=== PATIENT | male | born 1940 | race Caucasian/White ===

== ENCOUNTER 2021-01-24 16:25 | Inpatient (IN) | payer MEDICARE, OTHER, SELFPAY ==
[2021-01-24] VITALS (12 sets, daily range): BP systolic 108–177; BP diastolic 41–78; PULSE 62–101; RESP 19–25; TEMP 36.2–36.9; O2SAT 77–98; BMI 23.4
--- NOTE | ~2021-01-24 | XR_ITS ---
EXAMINATION: XR barium swallow modified DATE: 01/27/2021 14:18 INDICATION: Dysphagia TECHNIQUE: Modified barium esophagram was performed by myself to administered fluoroscopy, in conjun ction with speech pathologist who administered barium in varying consistencies as per speech patholog ist documentation. This was recorded on tape. A single fluoroscopic spot image was recorded. The DAP for this procedure was 2.5 Gycm2. Fluoroscopy exposure time was 4.2 minutes. FINDINGS: Oral stage: Adequate function. Pharyngeal phase: Adequate function. Laryngeal penetration: Present with first sip but not thereafter. Aspiration: Present with first sip but not thereafter. Laryngeal sensitivity: Present. IMPRESSION: Laryngeal penetration and aspiration present with the first sip but not thereafter. Pleas e refer to speech pathologist findings and specific feeding recommendations. Reviewed, dictated and finalized at location A. IMPRESSION: Laryngeal penetration and aspiration present with the first sip but not thereafter. Please refer to speech pathologist findings and specific feedi ng recommendations.
--- NOTE | ~2021-01-24 | XR_ITS ---
EXAMINATION: XR chest 1V portable INDICATION: Shortness of breath and productive cough TECHNIQUE: Portable AP chest at 1652 hours COMPARISON: 02/14/2008 FINDINGS: There are patchy opacities throughout the lungs, worst in the mid and lower lung zones. The heart size is normal. No pleural effusion or pneumothorax is identified. IMPRESSION: 1. Patchy bilateral opacities, worst in the mid and lower lung zones, consistent with pneumonia and/o r atelectasis and/or pulmonary edema. Reviewed, dictated and finalized at location A. IMPRESSION: 1. Patchy bilateral opacities, worst in the mid and lower lung zones, consisten t with pneumonia and/or atelectasis and/or pulmonary edema.
--- NOTE | ~2021-01-24 | XR_ITS ---
EXAMINATION: XR chest 1V portable INDICATION: Pneumonia and edema TECHNIQUE: Portable AP chest at 0522 hours COMPARISON: 01/21/2021 FINDINGS: There is scarring of the lung apices, right. The left. Patchy opacities persist throughout all lung zones with slight improvement in the right mid and lower lung zones and the left lung base a nd no significant change in the left midlung zone. No pleural effusion or pneumothorax is identified. The heart size is normal. Surgical clips in the right upper quadrant are likely from prior cholecyst ectomy. Enteric contrast material from yesterday's modified barium swallow is noted in the colon. IMPRESSION: 1. Patchy opacities of the lungs with improvement in the lung bases and right midlung zone and slight worsening in the left midlung zone, consistent with atelectasis versus pneumonia. Reviewed, dictated and finalized at location A. IMPRESSION: 1. Patchy opacities of the lungs with improvement in the lung bases and right m idlung zone and slight worsening in the left midlung zone, consistent with atel ectasis versus pneumonia.
--- NOTE | ~2021-01-24 | US_ITS ---
EXAMINATION: US renal BI DATE: 01/25/2021 10:46 INDICATION: Acute kidney injury. TECHNIQUE: Multiple ultrasound grayscale images of the kidneys were obtained. COMPARISON: None. FINDINGS: The right kidney measures 9.2 x 5.6 x 5.2 cm. The left kidney measures 9.0 x 5.6 x 4.2 cm. The kidney s demonstrate normal parenchymal echogenicity. There is a 1.4 cm cyst in right kidney. There is no hy dronephrosis. The bladder is normal. IMPRESSION: 1. Normal kidney sizes. No hydronephrosis. Reviewed, dictated and finalized at location B.
--- NOTE | 2021-01-24 16:33 | ECG_ITS ---
Measurements Intervals [place] Rate: 74 P: 16 SD: 218 QRS: 36 QRSD: 102 T: 15 QT: 369 QTc: 410 Interpretive Statements SINUS RHYTHM WITH FIRST DEGREE AV BLOCK PEAKED T WAVES- CONSIDER HYPERKALEMIA OR ISCHEMIA BASELINE ARTIFACT- I, II, AVR, V2-V6 ABNORMAL ECG Electronically Signed On 01-24-2021 20:56:41 CDT by Rojelio Thornton D.O.
--- NOTE | 2021-01-24 16:54 | ED.SOB ---
HPI - SOB/Dyspnea General Chief Complaint: Shortness of Breath/Dyspnea Stated Complaint: cough/congestion/confusion Time Seen by Provider: 01/24/21 16:43 Source: patient and family Limitations: no limitations History of Present Illness HPI Narrative: Patient 80 years old white male brought to the emergency room by his daughter because of coughing, shortness of breath and confusion over the last 7 days. Patient lives alone, daughter visits him daily, patient denies any fever, chills, nausea, vomiting, chest pain, back pain or headache. Patient had COVID-19 vaccination months ago. Patient is full code. Patient does not take oxygen at home. Related Data Allergies Allergy/AdvReac Type Severity Reaction Status Date / Time No Known Allergies Allergy Mild Verified 02/14/08 22:18 Review of Systems Review of Systems: Narrative: CONSTITUTIONAL: Denies fever, chills, or sweats. EYES: Denies visual changes, redness, or discharge. ENT: Denies rhinorrhea, congestion, sore throat, or otalgia. CARDIOVASCULAR: Denies chest pain, palpitations, or edema. RESPIRATORY: Denies cough or dyspnea. GASTROINTESTINAL: Denies abdominal pain, nausea, vomiting, or diarrhea. GENITOURINARY: Denies dysuria or hematuria. SKIN: Denies rash or itching. MUSCULOSKELETAL: Denies back pain, joint pain, or myalgia. NEUROLOGIC: Denies headache, numbness, or weakness. PSYCHIATRIC: Denies anxiety or depression. 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 Neck: Supple, nontender Chest and respiratory: Scattered rhonchi, diminution of air entry bilaterally Heart: Regular rate/rhythm Abdomen: Soft, nontender, no organomegaly, quiet bowel sounds Vascular: Normal peripheral pulses, normal capillary refill. Musculoskeletal: Normal range of motion, nontender back Neurologic: Alert and oriented ?3, PHARMACOGENETICIST is normal as tested, no gross motor deficit Course Course Emergency Course: Stable Vital Signs Vital signs: Vital Signs Temperature 36.9 C 01/24/21 16:30 Pulse Rate 74 01/24/21 16:30 Respiratory Rate 20 01/24/21 16:30 Blood Pressure 113/41 L 01/24/21 16:30 Pulse Oximetry 77 L 01/24/21 16:30 Temperature 36.5 C 01/24/21 16:47 Pulse Rate 75 01/24/21 16:50 Respiratory Rate 24 H 01/24/21 16:47 Blood Pressure 136/55 L 01/24/21 16:47 Pulse Oximetry 93 01/24/21 16:50 MDM - SOB/Dyspnea MDM Narrative Medical decision making narrative: Hypoxia, pneumonia is my concern. Please look at the differential diagnosis below. Labs, chest x-ray, blood culture x2, ABG on 3 L, IV access ordered. Further plan to follow Differential Diagnosis Differential diagnosis: Likely congestive heart failure, community acquired pneumonia and other (Pleural effusion) Lab Data Result diagrams: 01/24/21 17:03 01/24/21 17:03 Labs: Lab Results 01/24/21 01/24/21 01/24/21 Range/Units 16:50 17:03 17:03 WBC 19.2 H (4.5-10.0) K/mm3 RBC 4.39 L (4.6-6.20) M/mm3 Hgb 13.6 L (14.0-18.0) g/dL Hct 41.1 L (42.0-52.0) % MCV 93.6 (80-100) fl MCH 31.0 (26-34) pg MCHC 33.1 (32-36) g/dl RDW 14.6 H (11.5-14.5) % Plt Count 181 (150-375) k/mm3 MPV 10.9 H (7.4-10.4) fl Immature Gran % (Auto) Not Reportable Neut % (Auto) Not Reportable Lymph % (Auto) Not Reportable [place] % (Auto)
[2021-01-24 16:56] LABS: Alveolar/Arterial O2 Gradient 121.2 mmHg; Base Excess ABG -1.7 mEq/l (+/-2.0); Carboxyhemoglobin 1.2 % THb (0-2.0); Fractional Inspired Oxygen 32 %; Methemoglobin ABG 0.3 %THb (0-1.5); Oxygen Content ABG 17.7 %vol (16.0-22.0); Oxygen Saturation ABG 91.4 % (95.0-100.0); PO2 ABG 61.3 mmHg (80.0-100.0); PO2 FiO2 Ratio Arterial Blood 1.92 %; Reduced Hemoglobin 8.5 %THb (0-5.0); pH ABG 7.389 (7.350-7.450)
[2021-01-24 16:57] LABS: Device NASAL CANNULA; Modified Allen's Test Pass; Site Drawn RIGHT RADIAL
[2021-01-24 17:21] LABS: Hematocrit 41.1 % (42.0-52.0); Hemoglobin 13.6 g/dL (14.0-18.0); Mean Corpuscular HGB Conc 33.1 g/dl (32-36); Mean Corpuscular Volume 93.6 fl (80-100); Mean Platelet Volume 10.9 fl (7.4-10.4); Platelet Count Result 181 k/mm3 (150-375); Red Blood Count 4.39 M/mm3 (4.6-6.20); Red Cell Distribution Width 14.6 % (11.5-14.5); White Blood Count 19.2 K/mm3 (4.5-10.0)
[2021-01-24 17:39] LABS: Lactic Acid Reflex 1.3 mmol/L (0.7-2.1)
[2021-01-24 17:50] LABS: Band Neutrophils Percent 13 % (0-6); Burr Cells 2+ (NORMAL); Lymphocytes Absolute Manual 0.96 K/mm3 (1.1-4.5); Monocytes Absolute Manual 1.34 K/mm3 (0.1-0.90); Monocytes Percent Manual 7 % (3-9); NT Pro B Type Natriuretic Pept 5730 pg/mL (5-100); Neutrophils Absolute Manual 16.89 K/mm3 (1.3-6.7); Neutrophils Percent Manual 75 % (46-73); Platelet Estimate Adequate (Adequate); Total Cells Counted 100; Troponin I 0.028 ng/mL (0.000-0.034)
[2021-01-24 17:59] LABS: Alanine Aminotransferase 11 U/L (4-50); Albumin Level 3.3 g/dL (3.5-5.1); Alkaline Phosphatase 81 U/L (38-126); Anion Gap 7 mmol/L (8-16); Aspartate Amino Transferase 22 U/L (17-59); Bilirubin,Total 1.9 mg/dL (0.2-1.3); Blood Urea Nitrogen 45 mg/dL (9-20); Calcium 9.4 mg/dL (8.4-10.2); Carbon Dioxide 27 mmol/L (22-30); Chloride 96 mmol/L (98-107); Estimated CRCL calculation 24 ml/min; Estimated Glomerular Filt Rate 31; Glucose 89 mg/dL (75-110); Potassium 4.6 mmol/L (3.4-5.0); Sodium 130 mmol/L (137-145)
[2021-01-24 18:10] LABS: CRP 43.5 mg/dL (<1.0)
[2021-01-24] MEDS: SODIUM CHLORIDE 0.9% IV 1,000 ML 999 ML IV CONT (18:35)
--- NOTE | 2021-01-24 20:29 | PM.IMHP ---
H&P: HPI History of Present Illness Date/Time: 01/24/21 20:29 Chief Complaint: Nothing is wrong Narrative: This is a 80-year-old male with past medical history significant for hypertension rest of the history it is not available as patient does not get his care at this facility and he is a poor historian as well. When asked what brought him to the hospital he stated my daughter . When further questioned he says that he had a cough with copious amount of secretion. However he stated he was doing just fine. As per emergency room history was mainly obtained from daughter who was sitting by his side. Preliminary workup was significant for a chest x-ray with bilateral lung infiltrate and elevated brain natriuretic peptide and a creatinine of 2.1 Review of Systems Review of Systems: ROS unobtainable: Yes unobtainable due to medical condition (Patient states that he was doing just fine ) [facility] Social History Social History Smoking status: Former smoker Additional smoking assessment comments: quit 50 years ago Alcohol intake: current Drinks per week: 7 Substance use: never Gender identity (if verbalized by the patient): Male Spiritual care concerns: No Meds Home Medications and Allergies Home Medications Medication Instructions Recorded Confirmed Type atenolol 12.5 mg PO HS 01/24/21 01/24/21 History diltiazem HCl 120 mg PO DAILY 01/24/21 01/24/21 History dipyridamole 200 mg PO BID 01/24/21 01/24/21 History dorzolamide 1 drp EACH EYE BID 01/24/21 01/24/21 History levothyroxine 125 mcg PO DAILY 01/24/21 01/24/21 History naproxen 500 mg PO BID 01/24/21 01/24/21 History rosuvastatin 10 mg PO HS 01/24/21 01/24/21 History Allergies Allergy/AdvReac Type Severity Reaction Status Date / Time No Known Allergies Allergy Mild Verified 01/24/21 22:03 Vital Signs Vital Signs - 24 hr 01/24/21 16:30 01/24/21 16:47 01/24/21 16:50 Temperature 98.4 F 97.7 F Pulse Rate 74 74 75 Respiratory Rate 20 24 H Blood Pressure 113/41 L 136/55 L Pulse Oximetry 77 L 93 93 01/24/21 17:45 01/24/21 18:41 01/24/21 18:48 Temperature 97.5 F L 97.7 F Pulse Rate 62 64 Respiratory Rate 19 25 H Blood Pressure 108/50 L 108/52 L Pulse Oximetry 93 94 94 01/24/21 19:36 Temperature 97.4 F L Pulse Rate 69 Respiratory Rate 19 Blood Pressure 112/52 L Pulse Oximetry 92 Exam Narrative: Exam Narrative: Patient was standing upon entering the room then he is seated down. Const: General: comfortable, no acute distress, well developed, alert, awake and ill appearing acutely Nutritional Appearance: average body habitus Orientation/consciousness: patient oriented x3 HENMT: Head: normal to inspection, normocephalic and atraumatic Ears: hearing grossly normal bilaterally General nose exam: Normal external nose present Face and sinus: normal facial exam Eyes: General: appearance normal, both eyes and all related structures Pupils: Equal, round and reactive pupils present EOM: EOMs intact bilaterally Neck: Neck: full ROM, no lymphadenopathy and no JVD Thyroid: thyroid normal Lymphatic: no lymphadenopathy noted Resp: Effort & Inspection: normal respiratory effort and able to speak in complete sentences Auscultation: crackles bilateral at the base and in the lower lung desir Cardio: Jugular venous distension: no JVD Rate: regular rate Rhythm: regular rhythm Heart sounds: S1 normal heart sound present and S2 normal heart sound present GI: GI Palp: Yes Soft to palpation and Yes No hepatosplenomegaly present : General: Yes deferred Skin: Rashes: no rashes Wounds: no wounds Neuro: General: patient oriented x3 and CN's II-XI intact bilaterally Cranial nerves: Yes CN's II-XII intact bilaterally and Yes Equal, round and reactive pupils present Cognition (Neuro): normal cognition Speech: normal speech Gait exam (Neuro): Normal gait present Motor exam (neuro): 5/5 m
--- NOTE | 2021-01-24 20:48 | PC.NURSE ---
This patient, Luis Carlos Corona, was admitted to 3 Med Surg Room 331-01 @20:45. Report taken from Paulie in ER. Patient/family oriented to hospital policies and general routines including ID bracelet, bed and alarms, visiting hours, pain management, procedures, bathroom and other care routines, personal items, smoking policy, room service/diet, and visiting hours. Information on how to activate the Rapid Response Team has been discussed. Patient/Family are encouraged to report perceived risks to care and to ask questions if they do not understand what they are told or what they should do.
[2021-01-25] VITALS (10 sets, daily range): BP systolic 114–155; BP diastolic 52–92; PULSE 63–101; RESP 18–22; TEMP 36.2–37; O2SAT 90–97
[2021-01-25] MEDS: SODIUM CHLORIDE 0.9% IV 1,000 ML 100 ML IV CONT ×2 (00:02→10:32)
[2021-01-25] MEDS: ROSUVASTATIN 10 MG TABLET PO ×2 (03:06→20:40)
[2021-01-25] MEDS: atenoloL 12.5 MG TABLET PO ×2 (03:12→20:39)
[2021-01-25] MEDS: LEVOTHYROXINE SODIUM 125 MCG TABLET PO (05:46)
[2021-01-25 05:54] LABS: Basophils Absolute Auto 0.1 K/mm3 (0.0-0.1); Basophils Percent Auto 0.6 % (0.2-1.2); Eosinophils Absolute Auto 0.1 K/mm3 (0-0.3); Eosinophils Percent Auto 0.4 % (0-4.4); Hematocrit 37.4 % (42.0-52.0); Hemoglobin 12.5 g/dL (14.0-18.0); Immature Granulocyte Absolute 0.24 K/mm3 (0.00-0.031); Immature Granulocyte Percent A 1.4 % (0-0.5); Lymphocytes Absolute Auto 0.46 K/mm3 (0.9-3.2); Lymphocytes Percent Auto 2.7 % (18.3-44.2); Mean Corpuscular HGB Conc 33.4 g/dl (32-36); Mean Corpuscular Hemoglobin 30.9 pg (26-34); Mean Corpuscular Volume 92.6 fl (80-100); Mean Platelet Volume 10.2 fl (7.4-10.4); Monocytes Absolute Auto 1.1 K/mm3 (0.1-0.6); Monocytes Percent Auto 6.5 % (2.6-8.5); Neutrophils Percent Auto 88.4 % (45.5-73.1); Platelet Count Result 154 k/mm3 (150-375); Red Blood Count 4.04 M/mm3 (4.6-6.20); Red Cell Distribution Width 14.6 % (11.5-14.5)
[2021-01-25 06:13] LABS: Anion Gap 6 mmol/L (8-16); Blood Urea Nitrogen 46 mg/dL (9-20); Calcium 8.3 mg/dL (8.4-10.2); Carbon Dioxide 20 mmol/L (22-30); Chloride 100 mmol/L (98-107); Estimated CRCL calculation 28 ml/min; Estimated Glomerular Filt Rate 37; Glucose 82 mg/dL (75-110); Potassium 4.2 mmol/L (3.4-5.0); Sodium 126 mmol/L (137-145)
[2021-01-25] MEDS: DORZOLAMIDE HCL 2% OPHTH DROPS 1 DROP EACH EYE ×2 (08:21→20:39)
[2021-01-25] MEDS: FUROSEMIDE INJ 40 MG/4 ML VIAL 20 MG IV PUSH ×2 (08:22→16:56)
--- NOTE | 2021-01-25 15:55 | PM.IMPN ---
Progress Note: A&P Assessment and Plan (1) Pneumonia: Qualifiers: Laterality: bilateral Lung location: lower lobe of lung Pneumonia type: due to unspecified organism Qualified Code(s): J18.9 - Pneumonia, unspecified organism Code(s): J18.9 - Pneumonia, unspecified organism Status: Acute Assessment and Plan: Patient has been started on Rocephin and Zithromax Await blood cultures COVID swab pending. sputum culture (2) Hyponatremia: Code(s): E87.1 - Hypo-osmolality and hyponatremia Status: Acute Assessment and Plan: Likely hypervolemic hyponatremia Will diurese Monitor sodium level slightly low today at 126. contineu with monitor. will sotp ivf (3) Kidney failure: Qualifiers: Renal failure chronicity: unspecified chronicity Qualified Code(s): N19 - Unspecified kidney failure Code(s): N19 - Unspecified kidney failure Status: Acute Assessment and Plan: Unknown baseline Patient apparently takes naproxen as it is listed on his home meds Will hold naproxen Renal ultrasound with no hydronephrosis Supportive care Intake and output daily Continue to monitor Cr slightly improved. (4) Acute respiratory failure with hypoxia: Code(s): J96.01 - Acute respiratory failure with hypoxia Status: Acute Assessment and Plan: Patient id is not on supplemental oxygen at home His required supplemental oxygen here likely secondary to pneumonia and congestive heart failure Continue to monitor Breathing treatments (5) Congestive heart failure (CHF): Code(s): I50.9 - Heart failure, unspecified Status: Acute Assessment and Plan: Echocardiogram pending. BNP elevated. Gentle diuresis Patient is on atenolol and diltiazem at home EKG reviewed shows sinus rhythm and first-degree AV block According to records from 2007 patient has history of hypertension Subjective Date/time seen: 01/25/21 15:55 Interval history: no ovenright events, reports his chest is sore from coughing. sob is about the same, no fever, chills. no nausea, vomiting. Review of Systems Review of Systems: Narrative: - CONSTITUTIONAL: Denies weight loss, fever and chills. - HEENT: Denies changes in vision and hearing - RESPIRATORY: reprots SOB and cough. - CV: Denies palpitations and reports CP. - GI: Denies abdominal pain, nausea, vomiting and diarrhea. - : Denies dysuria and urinary frequency. - MSK: Denies myalgia and joint pain. - SKIN: Denies rash and pruritus. - NEUROLOGICAL: Denies headache and syncope. - PSYCHIATRIC: Denies recent changes in mood. Denies anxiety and depression. All systems reviewed & are unremarkable except as noted in HPI and below Constitutional: Constitutional: Reports fatigue and Reports weakness Neurologic: Reports weakness Endocrine: Endocrine: Reports fatigue Exam Const: General: comfortable, no acute distress, well developed, alert, awake and ill appearing acutely Nutritional Appearance: average body habitus Orientation/consciousness: patient oriented x3 HENMT: Head: normal to inspection, normocephalic and atraumatic Ears: hearing grossly normal bilaterally General nose exam: Normal external nose present Face and sinus: normal facial exam Eyes: General: appearance normal, both eyes and all related structures Pupils: Equal, round and reactive pupils present EOM: EOMs intact bilaterally Neck: Neck: full ROM, no lymphadenopathy and no JVD Thyroid: thyroid normal Lymphatic: no lymphadenopathy noted Resp: Effort & Inspection: normal respiratory effort and able to speak in complete sentences Auscultation: crackles bilateral at the base and in the lower lung desir Cardio: Jugular venous distension: no JVD Rate: regular rate Rhythm: regular rhythm Heart sounds: S1 normal heart sound present and S2 normal heart sound present : General: Yes deferred Skin: Rashes: no rashes Wounds: no wounds
[2021-01-25] MEDS: guaiFENesin/DEXTROMETHORPHAN 10 ML UDC PO (17:02)
[2021-01-26] VITALS (10 sets, daily range): BP systolic 115–173; BP diastolic 52–58; PULSE 57–74; RESP 16–20; TEMP 36.3–36.5; O2SAT 82–96
--- NOTE | 2021-01-26 | ECHO_ITS ---
Patient Info Name: Luis Carlos Corona Age: 80 years : 1940 Gender: Male Ht: 67 in Wt: 149 lbs BSA: 1.79 m2 HR: 70 bpm BP: 124 / 57 mmHg Heart Rhythm: Sinus Rhythm Technical Quality: Fair Exam Date: 01/26/2021 10:52 AM Exam Location: [facility] Patient Status: Inpatient Admit Date: 01/24/2021 Staff Ordering Physician: Tracee Byers MD Engineering Manager: THERON Attending Provider: Abel Sanches MD Referring Physician: Modesta BARR; Exam Type: CA echo doppler color flow Study Info Indications - ELEVATED BNP Complete two-dimensional, color flow and Doppler transthoracic echocardiogram is performed. Summary 1. Complete two-dimensional, color flow and Doppler transthoracic echocardiogram is performed. 2. Normal left ventricular size with mild concentric hypertrophy. Good systolic function of all segments with an ejection fraction greater than 70%, with no segmental wall motion abnormalities. Grade 2 diastolic dysfunction is present. 3. Left atrial chamber dimension is moderately enlarged. 4. There is minimal aortic valve stenosis with a peak velocity of 218 cm/s, mean gradient of 7 mmHg, and aortic valve area of 2.0 cm2. 5. 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 6. Normal sinus rhythm. Left Ventricle Left ventricular chamber dimension is normal. Left ventricular systolic function is normal, estimated at >70%. There is mildly increased left ventricular wall thickness. Left ventricular septal wall motion is normal. The left ventricular diastolic function is grade II diastolic dysfunction. Right Ventricle Right ventricular chamber dimension is normal. Right ventricular systolic function is normal. Left Atria Left atrial chamber dimension is moderately enlarged. Right Atria Right atrial chamber dimension is normal. Aortic Valve The aortic valve is trileaflet. There is no aortic valve sclerosis. There is minimal aortic valve stenosis with a peak velocity of 218 cm/s, mean gradient of 7 mmHg, and aortic valve area of 2.0 cm2. There is no aortic valve regurgitation. There is mild aortic valve calcification. Pulmonic Valve The pulmonic valve is normal. There is no pulmonic valve stenosis. There is no pulmonic regurgitation. Mitral Valve The mitral valve has thickened leaflets. There is no mitral valve stenosis. There is trace mitral valve regurgitation. The mitral valve annulus is moderately calcified. Tricuspid Valve The tricuspid valve leaflets are normal. There is no significant tricuspid valve stenosis. There is trace tricuspid valve regurgitation. No pulmonary hypertension, estimated pulmonary arterial systolic pressure is Empty. Pericardium/Pleural The pericardium appears normal. There is no pericardial effusion. Inferior Vena Cava Normal inferior vena cava with >50% collapse upon inspiration consistent with Empty right atrial pressure, Empty. Aorta The aortic root size at the sinus of Valsalva is normal. The prox ascending aorta size is normal. 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 Left Ventricular Outflow Tract Name Value Normal LVOT 2D LVOT Diameter 2.0 cm LVOT Doppler
[2021-01-26 06:05] LABS: Basophils Percent Auto 0.3 % (0.2-1.2); Eosinophils Absolute Auto 0.1 K/mm3 (0-0.3); Eosinophils Percent Auto 0.5 % (0-4.4); Hematocrit 37.8 % (42.0-52.0); Hemoglobin 12.9 g/dL (14.0-18.0); Immature Granulocyte Absolute 0.42 K/mm3 (0.00-0.031); Immature Granulocyte Percent A 2.7 % (0-0.5); Lymphocytes Absolute Auto 0.57 K/mm3 (0.9-3.2); Lymphocytes Percent Auto 3.7 % (18.3-44.2); Mean Corpuscular HGB Conc 34.1 g/dl (32-36); Mean Corpuscular Hemoglobin 30.1 pg (26-34); Mean Corpuscular Volume 88.1 fl (80-100); Mean Platelet Volume 9.8 fl (7.4-10.4); Monocytes Absolute Auto 0.9 K/mm3 (0.1-0.6); Monocytes Percent Auto 5.9 % (2.6-8.5); Neutrophils Absolute Auto 13.5 K/mm3 (1.3-6.7); Neutrophils Percent Auto 86.9 % (45.5-73.1); Platelet Count Result 197 k/mm3 (150-375); Red Blood Count 4.29 M/mm3 (4.6-6.20); Red Cell Distribution Width 14.6 % (11.5-14.5); White Blood Count 15.5 K/mm3 (4.5-10.0)
[2021-01-26] MEDS: LEVOTHYROXINE SODIUM 125 MCG TABLET PO (06:07)
[2021-01-26 06:09] LABS: Anion Gap 9 mmol/L (8-16); Blood Urea Nitrogen 37 mg/dL (9-20); Calcium 8.6 mg/dL (8.4-10.2); Carbon Dioxide 29 mmol/L (22-30); Chloride 96 mmol/L (98-107); Estimated CRCL calculation 36 ml/min; Estimated Glomerular Filt Rate 49; Glucose 87 mg/dL (75-110); Potassium 3.7 mmol/L (3.4-5.0); Sodium 134 mmol/L (137-145)
[2021-01-26] MEDS: DORZOLAMIDE HCL 2% OPHTH DROPS 1 DROP EACH EYE ×2 (08:32→20:12)
[2021-01-26] MEDS: FUROSEMIDE INJ 40 MG/4 ML VIAL 20 MG IV PUSH ×2 (08:33→17:42)
[2021-01-26] MEDS: ENOXAPARIN 40 MG/0.4 ML SYRINGE SUB-Q (11:41)
--- NOTE | 2021-01-26 11:55 | PM.IMPN ---
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 He has chronic cough which is unchanged. Initial labs showed He was afebrile, non tachycardic, hypoxic at 77% on room air, blood pressure 113/41, increased respiratory rate at 24. Initial labs showed leukocytosis with a left shift, normocytic anemia with a hemoglobin of 13/hematocrit 41%. ABG shows hypoxia on 3 L via nasal cannula but compensated. Hyponatremia, JOANNE with creatinine 2.1, BUN 45, normal lactic acid. Elevated total bili at 1.9, normal AST, ALT, alk-phos. Elevated at 5730. CRP elevated at 43.5. Chest x-ray showed Patchy bilateral opacities, worst in the mid and lower lung zones, consistent with pneumonia and/or atelectasis and/or pulmonary edema. Renal US showed Normal kidney sizes. No hydronephrosis. Patient was admitted to the hospital with pneumonia started on IV antibiotics, JOANNE, fluid overload on IV Lasix b.i.d.. He tells me has a history of neck surgery and has some dysphagia issues. Denies any episodes of overt aspiration or changes to his swallowing recently. He is currently on 1 L via nasal cannula with oxygenation 91% Pending COVID swab Patient denies any change to his breathing, cough at this time. Will switch antibiotics to cover aspiration, continue IV Rocephin (Day #2) and add IV Flagyl (Day #1), Added IV Vancomycin (Day #1) since one of his blood cultures are growing Gram Positive Cocci in Clusters Infectious Disease specialist has been consulted for further recommendations on antibiotics. Will consult speech therapy due to history of dysphagia Continue IV diuretics at this time 20 mg b.i.d. with improvement of his renal function. Echocardiogram pending. Continue monitoring. Wean oxygen as tolerated. (2) Positive blood culture: Code(s): R78.81 - Bacteremia Status: Acute Assessment and Plan: One Blood culture grew Gram positive cocci in clusters this morning. Added IV Vancomycin. Could be contaimination. Consulted Infectious disease for further evaluation and recommendations on antibiotics. (3) Pneumonia: Qualifiers: Laterality: bilateral Lung location: lower lobe of lung Pneumonia type: due to unspecified organism Qualified Code(s): J18.9 - Pneumonia, unspecified organism Code(s): J18.9 - Pneumonia, unspecified organism Status: Acute (4) Hyponatremia: Code(s): E87.1 - Hypo-osmolality and hyponatremia Status: Acute Assessment and Plan: Likely hypervolemic hyponatremia. Sodium is improved at 134 today. Continue with diuresis. Monitor sodium level (5) Kidney failure: Qualifiers: Renal failure chronicity: unspecified chronicity Qualified Code(s): N19 - Unspecified kidney failure Code(s): N19 - Unspecified kidney failure Status: Acute Assessment and Plan: Presents with JOANNE with a creatinine of 2.1. Unknown baseline. Will hold naproxen which he takes for arthritis pain, switch to Tylenol. Renal function is improving with diuresis and holding medications that cause renal impairment Renal ultrasound with no hydronephrosis Continue monitoring.Supportive care. Intake and output daily. (6) Congestive heart failure (CHF): Code(s): I50.9 - Heart failure, unspecified Status: Acute Assessment and Plan: No documented diagnosis of CHF, Echocardiogram pending. BNP elevated. Gentle di
[2021-01-26 13:06] LABS: SARS-CoV-2 RNA PCR Negative
[2021-01-26] MEDS: metroNIDAZOLE 500 MG/ISO 100ML 500 MG/100 ML BAG 100 MG IVPB ×2 (13:55→18:57)
[2021-01-26] MEDS: guaiFENesin 600 MG/DEXTROMETHORPHAN 30 MG SR TAB 12 HR 1 TAB PO ×2 (13:56→20:12)
[2021-01-26] MEDS: SALINE 0.65% NAS SOLN 44 ML BTL 1 SPRAY NASAL (14:00)
[2021-01-26] MEDS: BENZOCAINE/MENTHOL (*BKC) 18 EA LOZENGE 1 LOZENGE PO (14:00)
[2021-01-26] MEDS: ACETAMINOPHEN 325 MG TABLET 650 MG PO ×2 (14:43→18:58)
[2021-01-26 15:15] LABS: Sodium 133 mmol/L (137-145)
--- NOTE | 2021-01-26 16:35 | PCSTNOTE ---
Please refer to the Bedside Swallow Evaluation in the EMR.
[2021-01-26] MEDS: atenoloL 12.5 MG TABLET PO (20:11)
[2021-01-26] MEDS: ROSUVASTATIN 10 MG TABLET PO (20:12)
[2021-01-26] MEDS: SODIUM CHLORIDE NASAL GEL 14.1 GM 1 APPLIC NASAL (20:12)
[2021-01-27] VITALS (14 sets, daily range): BP systolic 116–147; BP diastolic 48–65; PULSE 56–95; RESP 18–20; TEMP 36.3–36.6; O2SAT 86–100; BMI 23.4
[2021-01-27] MEDS: metroNIDAZOLE 500 MG/ISO 100ML 500 MG/100 ML BAG 100 MG IVPB ×2 (01:05→05:42)
[2021-01-27] MEDS: LEVOTHYROXINE SODIUM 125 MCG TABLET PO (05:43)
[2021-01-27 06:11] LABS: Basophils Absolute Auto 0.1 K/mm3 (0.0-0.1); Basophils Percent Auto 0.5 % (0.2-1.2); Eosinophils Absolute Auto 0.1 K/mm3 (0-0.3); Eosinophils Percent Auto 0.6 % (0-4.4); Hematocrit 38.5 % (42.0-52.0); Hemoglobin 13.4 g/dL (14.0-18.0); Immature Granulocyte Percent A 3.5 % (0-0.5); Lymphocytes Absolute Auto 0.62 K/mm3 (0.9-3.2); Lymphocytes Percent Auto 4.4 % (18.3-44.2); Mean Corpuscular HGB Conc 34.8 g/dl (32-36); Mean Corpuscular Hemoglobin 30.7 pg (26-34); Mean Corpuscular Volume 88.3 fl (80-100); Mean Platelet Volume 9.8 fl (7.4-10.4); Monocytes Percent Auto 6.9 % (2.6-8.5); Neutrophils Absolute Auto 11.9 K/mm3 (1.3-6.7); Neutrophils Percent Auto 84.1 % (45.5-73.1); Platelet Count Result 199 k/mm3 (150-375); Red Blood Count 4.36 M/mm3 (4.6-6.20); Red Cell Distribution Width 14.7 % (11.5-14.5); White Blood Count 14.2 K/mm3 (4.5-10.0)
[2021-01-27 06:30] LABS: Alanine Aminotransferase 14 U/L (4-50); Albumin Level 2.9 g/dL (3.5-5.1); Alkaline Phosphatase 72 U/L (38-126); Anion Gap 9 mmol/L (8-16); Aspartate Amino Transferase 26 U/L (17-59); Blood Urea Nitrogen 38 mg/dL (9-20); Calcium 8.5 mg/dL (8.4-10.2); Carbon Dioxide 27 mmol/L (22-30); Chloride 97 mmol/L (98-107); Estimated CRCL calculation 39 ml/min; Estimated Glomerular Filt Rate 53; Glucose 99 mg/dL (75-110); Potassium 3.7 mmol/L (3.4-5.0); Sodium 133 mmol/L (137-145)
[2021-01-27 07:03] LABS: CRP 32.3 mg/dL (<1.0)
[2021-01-27] MEDS: ACETAMINOPHEN 325 MG TABLET 650 MG PO ×2 (08:43→17:02)
[2021-01-27] MEDS: DORZOLAMIDE HCL 2% OPHTH DROPS 1 DROP EACH EYE ×2 (08:43→21:35)
[2021-01-27] MEDS: guaiFENesin 600 MG/DEXTROMETHORPHAN 30 MG SR TAB 12 HR 1 TAB PO ×2 (08:44→21:35)
[2021-01-27] MEDS: FUROSEMIDE INJ 40 MG/4 ML VIAL 20 MG IV PUSH ×2 (08:45→17:01)
[2021-01-27] MEDS: ENOXAPARIN 40 MG/0.4 ML SYRINGE SUB-Q (08:46)
[2021-01-27] MEDS: guaiFENesin/DEXTROMETHORPHAN 10 ML UDC PO (08:46)
--- NOTE | 2021-01-27 10:18 | PM.IMPN ---
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 He has chronic cough which is unchanged. Initial labs showed He was afebrile, non tachycardic, hypoxic at 77% on room air, blood pressure 113/41, increased respiratory rate at 24. Initial labs showed leukocytosis with a left shift, normocytic anemia with a hemoglobin of 13/hematocrit 41%. ABG shows hypoxia on 3 L via nasal cannula but compensated. Hyponatremia, JOANNE with creatinine 2.1, BUN 45, normal lactic acid. Elevated total bili at 1.9, normal AST, ALT, alk-phos. Elevated at 5730. CRP elevated at 43.5. Chest x-ray showed Patchy bilateral opacities, worst in the mid and lower lung zones, consistent with pneumonia and/or atelectasis and/or pulmonary edema. Renal US showed Normal kidney sizes. No hydronephrosis. Patient was admitted to the hospital with pneumonia started on IV antibiotics, JOANNE, fluid overload on IV Lasix b.i.d.. He tells me has a history of neck surgery and has some dysphagia issues. Denies any episodes of overt aspiration or changes to his swallowing recently. He is currently on room air with oxygenation 91% COVID swab negative Patient denies any change to his breathing, cough at this time. Infectious disease was consulted and recommend continuing IV Rocephin for CAP (Day #4) and Vancomycin (Day #2) and discontinue IV Flagyl because he does not believe he has aspiration pneumonia, and even with an abnormality to his MBS he would not recommend a change to his antibiotics. Will discontinue IV diuretics this afternoon. Stable renal function. Will recheck CXR in the morning. Echocardiogram showed normal EF, diastolic dysfunction grade 2. Continue monitoring. Wean oxygen as tolerated. (2) Positive blood culture: Code(s): R78.81 - Bacteremia Status: Acute Assessment and Plan: One Blood culture grew Gram positive cocci in clusters this morning. Added IV Vancomycin #2. Could be contamination. Consulted Infectious disease and recommend continuing IV Vancomycin until cultures become more clear, pending official results and sensitivities. (3) Pneumonia: Qualifiers: Laterality: bilateral Lung location: lower lobe of lung Pneumonia type: due to unspecified organism Qualified Code(s): J18.9 - Pneumonia, unspecified organism Code(s): J18.9 - Pneumonia, unspecified organism Status: Acute (4) Hyponatremia: Code(s): E87.1 - Hypo-osmolality and hyponatremia Status: Acute Assessment and Plan: Likely hypervolemic hyponatremia. Sodium is stable at 133 today. Continue with diuresis. Monitor sodium level (5) Kidney failure: Qualifiers: Renal failure chronicity: unspecified chronicity Qualified Code(s): N19 - Unspecified kidney failure Code(s): N19 - Unspecified kidney failure Status: Acute Assessment and Plan: Presents with JOANNE with a creatinine of 2.1. Unknown baseline. Will hold naproxen which he takes for arthritis pain, switch to Tylenol. Renal function is improving with diuresis and holding medications that cause renal impairment Renal ultrasound with no hydronephrosis Continue monitoring.Supportive care. Intake and output daily. (6) Congestive heart failure (CHF): Code(s): I50.9 - Heart failure, unspecified Status: Acute Assessment and Plan: Diastolic CHF. BNP elevated. Patient is on ate
--- NOTE | 2021-01-27 10:31 | WPDINFPN2 ---
Progress Note: A&P Assessment and Plan (1) Pneumonia: Qualifiers: Laterality: bilateral Lung location: lower lobe of lung Pneumonia type: due to unspecified organism Qualified Code(s): J18.9 - Pneumonia, unspecified organism Code(s): J18.9 - Pneumonia, unspecified organism Status: Acute Assessment and Plan: 1. CAP 2. + BC 3. Prior H&N cancer REC Ctx #4. Continue Vancomycin, but stop if (as I expect) the BC isolate is found to be non- S. aureus. Oral cefdinir once findings of pneumonia substantially better. Call if Qs Subjective Date/time seen: 01/27/21 10:31 Objective Data Vital Signs Vital Signs: Vital Signs - 24 hr 01/26/21 11:50 01/26/21 12:00 01/26/21 14:00 Temperature 36.3 C L 36.4 C L Pulse Rate 74 64 Respiratory Rate 16 16 Blood Pressure 173/58 H 115/52 L Pulse Oximetry 91 91 90 01/26/21 20:11 01/26/21 21:05 01/26/21 22:00 Temperature 36.5 C Pulse Rate 64 57 L 58 L Respiratory Rate 20 Blood Pressure 128/54 L Pulse Oximetry 82 L 93 01/27/21 05:54 Temperature 36.6 C Pulse Rate 60 Respiratory Rate 20 Blood Pressure 116/48 L Pulse Oximetry 93 Intake/Output Intake/Output: Intake & Output 01/24/21 01/25/21 01/26/21 01/27/21 23:59 23:59 23:59 23:59 Intake Total 1300 3680 2040 880 Output Total 1500 1000 725 Balance 1300 2180 1040 155 Meds/Results Medications: Active Medications Generic Name Dose Route Start Last Admin Trade Name Freq PRN Reason Stop Dose Admin Acetaminophen 650 mg 01/25/21 16:02 01/26/21 14:43 Acetaminophen 325 Mg Tablet PO 650 mg Q4H PRN Administration Headache Acetaminophen 650 mg 01/26/21 17:00 01/27/21 08:43 Acetaminophen 325 Mg Tablet PO 650 mg BID HECOTR Administration Atenolol 12.5 mg 01/25/21 02:05 01/26/21 20:11 Atenolol 12.5 Mg Tablet PO 12.5 mg HS HECTOR Administration Benzocaine 1 lozenge 01/26/21 12:22 01/26/21 14:00 Benzocaine/Menthol (*Bkc) 18 Ea Lozenge PO 1 lozenge PRN PRN Administration Sore Throat Diltiazem HCl 120 mg 01/25/21 09:00 01/27/21 08:43 Diltiazem Hcl Cd 120 Mg Cap.Sa.24h PO 120 mg DAILY HECTOR Administration Dipyridamole/Aspirin 1 cap 01/25/21 09:00 01/27/21 08:44 Asa 25 Mg/Dipyridamole 200 Mg Cr Capsule PO 02/24/21 09:01 1 cap BID HECTOR Administration Dorzolamide HCl 1 drop 01/25/21 09:00 01/27/21 08:43 Dorzolamide Hcl 2% Ophth Drops EACH EYE 1 drop Q12HR HECTOR Administration Enoxaparin Sodium 40 mg 01/26/21 09:00 01/27/21 08:46 Enoxaparin 40 Mg/0.4 Ml Syringe SUB-Q 40 mg DAILY HECTOR Administration Furosemide 20 mg 01/25/21 09:00 01/27/21 08:45 Furosemide Inj 40 Mg/4 Ml Vial IV PUSH 20 mg BID HECTOR Administration Guaifenesin/Dextromethorphan 10 ml 01/25/21 16:02 01/27/21 08:46 Guaifenesin/Dextromethorphan 10 Ml Udc PO 10 ml Q4H PRN Administration Cough Guaifenesin/Dextromethorphan 1 tab 01/26/21 12:45 01/27/21 08:44 Guaifenesin 600 Mg/Dextromethorphan 30 Mg Sr Tab 12 Hr PO 1 tab Q12HR HECTOR Administration Ceftriaxone Sodium/Dextrose 1 gm in 50 mls @ 100 mls/hr 01/24/21 17:00 01/26/21 18:07 Rocephin 1 Gm/D5w 50 Ml IVPB Infused Q24H HECTOR Infusion Vancomycin HCl 1,000 mg in 250 mls @ 250 mls/hr 01/26/21 11:00 01/26/21 12:40 Vancomycin 1,000 Mg/D5w 250 Ml IVPB Infused Q36H HECTOR Infusion Metronidazole 500 mg in 100 mls @ 100 mls/hr 01/26/21 13:05 01/27/21 05:42 Flagyl 500 Mg/Iso Soln 100 Ml IVPB 100 mls/hr Q6HR HECTOR Administration Levothyroxine Sodium 125 mcg 01/25/21 06:30 01/27/21 05:43 Levothyroxine Sodium 125 Mcg Tablet PO 125 mcg DAILY@0630 HECTOR Administration Lorazepam 0.5 mg 01/25/21 18:37 Lorazepam (*Crx) 0.5 Mg Tablet PO Q6H PRN Anxiety Rosuvastatin Calcium 10 mg 01/25/21 02:05 01/26/21 20:12 Rosuvastatin 10 Mg Tablet PO 10 mg HS HECTOR Administration Sodium Chloride 1 applic 01/26/21 21:00 0
[2021-01-27] MEDS: IPRATROPIUM BR 0.02% INH SOLN 0.5 MG/2.5 ML VIAL INHALATION ×2 (14:31→20:50)
[2021-01-27] MEDS: ALBUTEROL SULFATE NEB 2.5 MG/0.5 ML INH INHALATION ×2 (14:31→20:50)
--- NOTE | 2021-01-27 15:09 | PCSTNOTE ---
Please refer to the Modified Barium Swallow Evaluation in the EMR.
--- NOTE | 2021-01-27 15:41 | CONS_ITS ---
DATE OF CONSULTATION: 01/27/2021 REASON FOR CONSULTATION: Bacteremia. HISTORY OF PRESENT ILLNESS: A 80-year-old male who underwent right neck surgery at [facility] some 25 years ago for cancer. He also had postoperative radiation therapy for about 7 weeks by his description. He reports cure ever since. However, he does have chronic problems with urinary urgency and frequency, dry mouth, sore throat, and dysphagia. Over time, he has been able to adjust his diet and daily activities to accommodate the above symptoms. He is also on medication for his bladder per his report, though not listed. He has had acute onset of cough, which has been productive, but very difficult for him to expectorate. He denies shortness of breath or chest pain. Here, he was believed to have community-acquired pneumonia and has been started on ceftriaxone with vancomycin and metronidazole has subsequently been added and azithromycin stopped. No events here in the hospital. ALLERGIES: NONE KNOWN. HABITS: Smoked in the distant past. No alcohol. PRESENT MEDICATIONS: No immunosuppressants. PAST MEDICAL HISTORY: He denies any other chronic medical illnesses. FAMILY HISTORY: Not pertinent to his present illness. SOCIAL HISTORY: No family at the bedside. He customarily goes to the [place] for his medical care. Lives locally. REVIEW OF SYSTEMS: 8 pounds intentional weight loss past 6 months. 14-point review otherwise negative. PHYSICAL EXAMINATION: GENERAL: This is an elderly male who is thin but not cachectic. No acute distress. VITAL SIGNS: Afebrile since arrival, 60, 20, 116/48, 92% on room air. SKIN: Decreased turgor. Few ecchymoses, do not appear pathologic. No rashes. NODES: He has no cervical adenopathy. EENT: Eyes are normal to inspection. No paranasal sinus erythema, edema, or tenderness. Dry mucous membranes. Teeth in fair repair. NECK: Diffusely tender and marked loss of muscle mass in the neck as well as subcutaneous fat. He does have a surgical scar on the right. There is no meningismus. Thyroid is not palpable. LUNGS: Rales bilaterally, more marked on the right than the left. Hyperresonant to percussion. He has no egophony, no fremitus changes. Breath sounds are vesicular. CARDIAC: Regular rate and rhythm. No murmur, gallop, or rub. ABDOMEN: Nontender, soft. No organomegaly. No masses. EXTREMITIES: Mild muscle wasting. No clubbing, cyanosis, or edema. RADIOLOGY: I personally reviewed his chest x-ray. We have no comparison in recent years, but the comparison we do have does show new infiltrate in the right lower lung field with a less marked infiltrate left retrocardiac area. LABORATORY DATA: White count 19.2 on admission, now 14.2; hemoglobin 13.4; platelets 199. Differential, minimal left shift. Blood gases 7.39, 39, 61, 23, 91% on 3 L. He has hyponatremia. BUN 38, creatinine 1.3. CRP 32.3, albumin 2.9. Coronavirus assay nonreactive. Blood cultures 1 of 2 sets gram-positive cocci. Sputum with rare mixed bacterial christi, light growth of Staph aureus to be identified and yeast. ASSESSMENT: 1. Gram-positive bacteremia, contaminant suspected, though cannot rule out lung source as the origination of a true bloodstream infection. Coagulase-negative Staph species is most likely. 2. Community-acquired pneumonia, the yeast is not a pathogen, but the Staph aureus certainly may be. The Staph aureus also may be a colonizer of the lower airways. Other respiratory pathogens are also possible including H flu, pneumococcus, and others. 3. Chronic dysphagia after head and neck cancer and radiation and surgery. He has no overt symptoms of aspiration. RECOMMENDATIONS: 1. Continue vancomycin for now but if staphylococcus non-aureus isolat
[2021-01-27] MEDS: atenoloL 12.5 MG TABLET PO (21:35)
[2021-01-27] MEDS: ROSUVASTATIN 10 MG TABLET PO (21:36)
[2021-01-27] MEDS: SODIUM CHLORIDE NASAL GEL 14.1 GM 1 APPLIC NASAL (21:36)
[2021-01-28] VITALS (14 sets, daily range): BP systolic 154–178; BP diastolic 60–86; PULSE 64–86; RESP 16–20; TEMP 36.7–36.8; O2SAT 91–94
[2021-01-28] MEDS: IPRATROPIUM BR 0.02% INH SOLN 0.5 MG/2.5 ML VIAL INHALATION ×4 (02:19→20:28)
[2021-01-28] MEDS: ALBUTEROL SULFATE NEB 2.5 MG/0.5 ML INH INHALATION ×4 (02:19→20:28)
[2021-01-28] MEDS: LEVOTHYROXINE SODIUM 125 MCG TABLET PO (06:02)
[2021-01-28 06:21] LABS: Basophils Absolute Auto 0.1 K/mm3 (0.0-0.1); Basophils Percent Auto 0.9 % (0.2-1.2); Eosinophils Absolute Auto 0.1 K/mm3 (0-0.3); Eosinophils Percent Auto 1.2 % (0-4.4); Hematocrit 41.1 % (42.0-52.0); Hemoglobin 14.5 g/dL (14.0-18.0); Immature Granulocyte Absolute 0.56 K/mm3 (0.00-0.031); Immature Granulocyte Percent A 5.3 % (0-0.5); Lymphocytes Absolute Auto 0.69 K/mm3 (0.9-3.2); Lymphocytes Percent Auto 6.5 % (18.3-44.2); Mean Corpuscular HGB Conc 35.3 g/dl (32-36); Mean Corpuscular Hemoglobin 30.9 pg (26-34); Mean Corpuscular Volume 87.4 fl (80-100); Monocytes Absolute Auto 0.8 K/mm3 (0.1-0.6); Monocytes Percent Auto 7.6 % (2.6-8.5); Neutrophils Absolute Auto 8.3 K/mm3 (1.3-6.7); Neutrophils Percent Auto 78.5 % (45.5-73.1); Platelet Count Result 211 k/mm3 (150-375); Red Cell Distribution Width 14.5 % (11.5-14.5); White Blood Count 10.6 K/mm3 (4.5-10.0)
[2021-01-28 07:04] LABS: Anion Gap 9 mmol/L (8-16); Blood Urea Nitrogen 34 mg/dL (9-20); Calcium 8.9 mg/dL (8.4-10.2); Carbon Dioxide 31 mmol/L (22-30); Chloride 95 mmol/L (98-107); Estimated CRCL calculation 45 ml/min; Estimated Glomerular Filt Rate > 60; Glucose 104 mg/dL (75-110); Potassium 3.7 mmol/L (3.4-5.0); Sodium 135 mmol/L (137-145)
--- NOTE | 2021-01-28 07:31 | P.CDI_ITS ---
CDI Query Clarification Request -One blood culture and sputum culture both growing staph aureus -Pneumonia and Bacteremia- possible contaminant, have been documented -On arrival creatinine was 2.1, Tbili was 1.9, BP MAP was <70 at 65 and 69, pO2 was 61.3 on 3L O2. This gives a SOFA score of 6 points. Please clarify diagnosis: * Bacteremia * Sepsis * Other * Unable to determine
[2021-01-28 07:36] LABS: CRP 28.7 mg/dL (<1.0)
[2021-01-28] MEDS: DORZOLAMIDE HCL 2% OPHTH DROPS 1 DROP EACH EYE ×2 (08:53→20:09)
[2021-01-28] MEDS: ACETAMINOPHEN 325 MG TABLET 650 MG PO ×2 (08:53→17:31)
[2021-01-28] MEDS: ENOXAPARIN 40 MG/0.4 ML SYRINGE SUB-Q (08:54)
[2021-01-28] MEDS: guaiFENesin 600 MG/DEXTROMETHORPHAN 30 MG SR TAB 12 HR 1 TAB PO ×2 (08:54→20:16)
--- NOTE | 2021-01-28 09:56 | PCPTNOTE ---
Patient refused treatment this session due to patient eating. Patient states that he wants to eat and does not want to get up from the chair right now. Patient requested for therapy to come back later. Will attempt to see patient at later time per plan of care. Susan Mayfield, SUPERVISOR [employer]
--- NOTE | 2021-01-28 13:44 | PM.IMPN ---
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 He has chronic cough which is unchanged. Initial labs showed He was afebrile, non tachycardic, hypoxic at 77% on room air, blood pressure 113/41, increased respiratory rate at 24. Initial labs showed leukocytosis with a left shift, normocytic anemia with a hemoglobin of 13/hematocrit 41%. ABG shows hypoxia on 3 L via nasal cannula but compensated. Hyponatremia, JOANNE with creatinine 2.1, BUN 45, normal lactic acid. Elevated total bili at 1.9, normal AST, ALT, alk-phos. Elevated at 5730. CRP elevated at 43.5. Chest x-ray showed Patchy bilateral opacities, worst in the mid and lower lung zones, consistent with pneumonia and/or atelectasis and/or pulmonary edema. Renal US showed Normal kidney sizes. No hydronephrosis. Patient was admitted to the hospital with pneumonia started on IV antibiotics, JOANNE, fluid overload on IV Lasix b.i.d.. He tells me has a history of neck surgery and has some dysphagia issues. Denies any episodes of overt aspiration or changes to his swallowing recently. Rechecked CXR showing Patchy opacities of the lungs with improvement in the lung bases and right midlung zone and slight worsening in the left midlung zone, consistent with atelectasis versus pneumonia. He is currently on room air with oxygenation 92% COVID swab negative Patients 1x Blood Culture and Sputum Culture coming back growing Staphylococcus aureus. Discussed with the [employer] Att[employer] over the phone who reviewed his records and believes he has Staph aureus pneumonia with bacteremia. Recommends continuing IV Vancomycin and discussing with ID further recommendations. Infectious disease had recommended to continue IV Rocephin for CAP (Day #5) and Vancomycin (Day #3), I am trying to call him about further recommendations with possible Staph aureus pneumonia with bacteremia. Continue IV abx at this time. Will discontinue IV diuretics. Stable renal function. Echocardiogram showed normal EF, diastolic dysfunction grade 2. Continue monitoring. Wean oxygen as tolerated. (2) Positive blood culture: Code(s): R78.81 - Bacteremia Status: Acute Assessment and Plan: Could be infectious from Staph aureus pneumnonia causing bacteremia vs contamination. Currently treating with IV Vancomycin. Consulted ID for further antibiotic recommendations. Appreciate input. (3) Pneumonia: Qualifiers: Laterality: bilateral Lung location: lower lobe of lung Pneumonia type: due to unspecified organism Qualified Code(s): J18.9 - Pneumonia, unspecified organism Code(s): J18.9 - Pneumonia, unspecified organism Status: Acute Assessment and Plan: see above (4) Hyponatremia: Code(s): E87.1 - Hypo-osmolality and hyponatremia Status: Acute Assessment and Plan: Likely hypervolemic hyponatremia. Sodium is stable at 133 today. Continue with diuresis. Monitor sodium level (5) Kidney failure: Qualifiers: Renal failure chronicity: unspecified chronicity Qualified Code(s): N19 - Unspecified kidney failure Code(s): N19 - Unspecified kidney failure Status: Acute Assessment and Plan: Presents with JOANNE with a creatinine of 2.1. Unknown baseline. Will hold naproxen which he takes for arthritis pain, switch to Tylenol. Renal function is improving with diuresis and holding medications that cause renal impairment Renal ultrasoun
[2021-01-28] MEDS: atenoloL 12.5 MG TABLET PO (20:07)
[2021-01-28] MEDS: SODIUM CHLORIDE NASAL GEL 14.1 GM 1 APPLIC NASAL (20:09)
[2021-01-28] MEDS: ROSUVASTATIN 10 MG TABLET PO (20:16)
[2021-01-29] VITALS (16 sets, daily range): BP systolic 140–214; BP diastolic 70–100; PULSE 63–98; RESP 17–20; TEMP 36.6–36.9; O2SAT 91–98
[2021-01-29] MEDS: IPRATROPIUM BR 0.02% INH SOLN 0.5 MG/2.5 ML VIAL INHALATION ×3 (02:03→14:31)
[2021-01-29] MEDS: ALBUTEROL SULFATE NEB 2.5 MG/0.5 ML INH INHALATION ×3 (02:03→14:31)
[2021-01-29 05:56] LABS: Basophils Absolute Auto 0.1 K/mm3 (0.0-0.1); Basophils Percent Auto 0.9 % (0.2-1.2); Eosinophils Absolute Auto 0.2 K/mm3 (0-0.3); Eosinophils Percent Auto 3.1 % (0-4.4); Immature Granulocyte Absolute 0.69 K/mm3 (0.00-0.031); Lymphocytes Absolute Auto 0.65 K/mm3 (0.9-3.2); Lymphocytes Percent Auto 9.4 % (18.3-44.2); Mean Corpuscular HGB Conc 33.3 g/dl (32-36); Mean Corpuscular Hemoglobin 29.9 pg (26-34); Mean Corpuscular Volume 89.7 fl (80-100); Mean Platelet Volume 9.4 fl (7.4-10.4); Monocytes Absolute Auto 0.5 K/mm3 (0.1-0.6); Monocytes Percent Auto 7.7 % (2.6-8.5); Neutrophils Absolute Auto 4.7 K/mm3 (1.3-6.7); Neutrophils Percent Auto 68.9 % (45.5-73.1); Platelet Count Result 213 k/mm3 (150-375); Red Blood Count 4.68 M/mm3 (4.6-6.20); Red Cell Distribution Width 14.8 % (11.5-14.5); White Blood Count 6.9 K/mm3 (4.5-10.0)
[2021-01-29 06:06] LABS: Anion Gap 6 mmol/L (8-16); Blood Urea Nitrogen 26 mg/dL (9-20); Calcium 8.5 mg/dL (8.4-10.2); Carbon Dioxide 33 mmol/L (22-30); Chloride 94 mmol/L (98-107); Estimated CRCL calculation 55 ml/min; Estimated Glomerular Filt Rate > 60; Glucose 99 mg/dL (75-110); Potassium 3.8 mmol/L (3.4-5.0); Sodium 133 mmol/L (137-145)
[2021-01-29] MEDS: LEVOTHYROXINE SODIUM 125 MCG TABLET PO (06:12)
[2021-01-29] MEDS: hydrALAZINE HCL 20 MG/ML VIAL 10 MG IV PUSH ×2 (08:12→15:03)
[2021-01-29 08:30] LABS: CRP 17.6 mg/dL (<1.0)
[2021-01-29] MEDS: ACETAMINOPHEN 325 MG TABLET 650 MG PO (09:14)
[2021-01-29] MEDS: DORZOLAMIDE HCL 2% OPHTH DROPS 1 DROP EACH EYE (09:15)
[2021-01-29] MEDS: ENOXAPARIN 40 MG/0.4 ML SYRINGE SUB-Q (09:15)
[2021-01-29] MEDS: guaiFENesin 600 MG/DEXTROMETHORPHAN 30 MG SR TAB 12 HR 1 TAB PO (09:16)
--- NOTE | 2021-01-29 10:46 | PCNFU ---
Nutrition Follow-Up Complete: Swallowing Difficulties as related to pneumonia as evidenced by MBS testing Goal: Meet estimated nutritional needs Progressing towards goal. We will continue current goal. Pt current nutrition is Soft and Bite sized, Level 6 with Enlive BID. Last recorded weight is 68 kg,no new weight reported. Bowel Motility:+BM reported 01/28 Labs Reviewed:BUN 26,Na 133 Meds Noted:Crestor, Synthroid,Cardizem,Lovenox Additional Notes: Patient seen today for nutrition follow up. He states to tolerating meals. He was drinking diet supplement of Ensure for breakfast, had eggs and sausage. Overall oral intake has been 25-100% of meals. Patient was up walking with PT today. Agree with diet orders. Monitoring: will monitor every 5 days.
[2021-01-29] MEDS: LIDOCAINE HCL 1% LOCAL INJ 2 ML AMPUL 5 ML INFILTRATE (11:15)
--- NOTE | 2021-01-29 14:08 | PCOTNOTE ---
Attempted to see patient this pm, however patient refused. Pt frustrated about chair alarm-agitated, using foul language. Charge nurse notified and alarm removed.
[2021-01-29] MEDS: SALINE LOCK FLUSH 10 ML IV PUSH (15:05)
--- NOTE | 2021-01-29 15:16 | PCRCNOTE ---
HOME O2 EVAL COMPLETE, NO REQUIREMENTS.
--- NOTE | 2021-01-29 16:24 | PM.DS ---
DS: Admitting Diagnosis Admitting Diagnosis Admitting Diagnosis: SOB <Denisse L. Roser, PA-C - Last Filed: 01/31/21 13:36> DS: Discharge Diagnosis Discharge Diagnosis (1) Staphylococcus aureus bacteremia: Code(s): R78.81 - Bacteremia; B95.61 - Methicillin susceptible Staphylococcus aureus infection as the cause of diseases classified elsewhere <Denisse L. Roser, PA-C - Last Filed: 01/31/21 13:36> Status: Acute <Denisse L. Roser, PA-C - Last Filed: 01/31/21 13:36> (2) Staphylococcus aureus pneumonia: Code(s): J15.211 - Pneumonia due to Methicillin susceptible Staphylococcus aureus <Denisse L. Roser, PA-C - Last Filed: 01/31/21 13:36> Status: Acute <Denisse L. Roser, PA-C - Last Filed: 01/31/21 13:36> (3) Acute respiratory failure with hypoxia: Code(s): J96.01 - Acute respiratory failure with hypoxia <Denisse L. Roser, PA-C - Last Filed: 01/31/21 13:36> Status: Acute <Denisse L. Roser, PA-C - Last Filed: 01/31/21 13:36> Assessment and Plan: <Denisse L. Roser, PA-C - Last Filed: 01/31/21 13:36> (4) Pneumonia: Qualifiers: Laterality: bilateral Lung location: lower lobe of lung Pneumonia type: due to unspecified organism Qualified Code(s): J18.9 - Pneumonia, unspecified organism <Denisse L. Roser, PA-C - Last Filed: 01/31/21 13:36> Code(s): J18.9 - Pneumonia, unspecified organism <Denisse L. Roser, PA-C - Last Filed: 01/31/21 13:36> Status: Acute <Denisse L. Roser, PA-C - Last Filed: 01/31/21 13:36> Assessment and Plan: <Denisse Negro Rivera PA-C - Last Filed: 01/31/21 13:36> (5) Hyponatremia: Code(s): E87.1 - Hypo-osmolality and hyponatremia <Denisse YanceySandy Rivera PA-C - Last Filed: 01/31/21 13:36> Status: Acute <Denisse Rivera PA-C - Last Filed: 01/31/21 13:36> Assessment and Plan: Likely hypervolemic hyponatremia. Sodium is stable at 133 today. <Denisse Negro Rivera PA-C - Last Filed: 01/31/21 13:36> (6) Kidney failure: Qualifiers: Renal failure chronicity: unspecified chronicity Qualified Code(s): N19 - Unspecified kidney failure <Denisse Rivera PA-C - Last Filed: 01/31/21 13:36> Code(s): N19 - Unspecified kidney failure <Denisse Rivera PA-C - Last Filed: 01/31/21 13:36> Status: Acute <Denisse Rivera PA-C - Last Filed: 01/31/21 13:36> Assessment and Plan: Presents with JOANNE with a creatinine of 0.9. Unknown baseline. Will hold naproxen which he takes for arthritis pain, switch to Tylenol. Will recheck BMP in 1 week and have him follow-up with primary care provider <Denissezuleika Rivera PA-C - Last Filed: 01/31/21 13:36> (7) Congestive heart failure (CHF): Code(s): I50.9 - Heart failure, unspecified <Denisse Rivera PA-C - Last Filed: 01/31/21 13:36> Status: Acute <Denisse Rivera PA-C - Last Filed: 01/31/21 13:36> Assessment and Plan: Diastolic CHF. BNP elevated. Patient is on atenolol and diltiazem at home EKG reviewed shows sinus rhythm and first-degree AV block According to records from 2007 patient has history of hypertension 01/28/21- Discontinued diuresis. Appears euvolemic <Denisse Rivera PA-C - Last Filed: 01/31/21 13:36> (8) Dysphagia: Code(s): R13.10 - Dysphagia, unspecified <Denisse Rivera PA-C - Last Filed: 01/31/21 13:36> Status: Acute <Denisse Rivera PA-C - Last Filed: 01/31/21 13:36> Assessment and Plan: Modified Barium Swallow showed Laryngeal penetration and aspiration present with the first sip but not thereafter. Speech therapy recommends r
--- NOTE | 2021-02-08 13:43 | PC.NURSE ---
Blood cx one bottle growing staph aureus. KATIE Esquivel aware. Patient dc with 2 weeks of Ceftriaxone.
== END 2021-01-29 17:00 | disposition home health service (06) | DRG 178 ==
LOC: ANHED 18:25 → ANH3MEDSUR 21:50
PROVIDERS: Emergency Medicine; Internal Medicine; Physician Assistant; Admitting Provider Family Medicine; Emergency Provider Emergency Medicine; Visit Provider Family Medicine
DX: J15.211 Pneumonia due to Methicillin susceptible Staphylococcus aureus (principal); E87.1 Hypo-osmolality and hyponatremia; R78.81 Bacteremia; I50.30 Unspecified diastolic (congestive) heart failure; N17.9 Acute kidney failure, unspecified; I11.0 Hypertensive heart disease with heart failure; Z20.822 Contact with and (suspected) exposure to COVID-19; R13.10 Dysphagia, unspecified; I73.00 Raynaud's syndrome without gangrene; Z79.899 Other long term (current) drug therapy; Z85.89 Personal history of malignant neoplasm of other organs and systems; Z87.891 Personal history of nicotine dependence
CPT/HCPCS: 36415; 36569; 36600; 71045; 76775; 80048; 80053; 82375; 82805; 83050; 83605; 83880; 84295; 84484; 85025; 86140; 87040; 87070; 87077; 87106; 87186; 87205; 92526; 92610; 92611; 93005; 93306; 94618; 94640; 96361; 96365; 96366; 96367; 96372; 96375; 96376; 97110; 97116; 97161; 97165; 99285; A9270; C9803; G0378; J0360; J0456; J0696; J1650; J1940; J3370; J7030; U0003; U0005

== ENCOUNTER 2023-05-18 11:05 | Inpatient (IN) | payer MEDICARE, OTHER, SELFPAY ==
[2023-05-18] VITALS (27 sets, daily range): BP systolic 105–257; BP diastolic 68–159; PULSE 68–101; RESP 16–21; TEMP 36.6–37; O2SAT 91–100; BMI 23.3
--- NOTE | ~2023-05-18 | CT_ITS ---
CT head without contrast Indication: Altered mental status COMPARISON: 02/14/2008 Technique: Serial scans were obtained through the brain without the administration of contrast. Dose reduction technique was used on this scan by utilizing automated exposure control and iterative recon struction technique. The dose-length product (DLP) was 605.33 mGy-cm. Findings: There is no evidence of intracranial hemorrhage, mass lesion, or acute infarct. The ventri cles and subarachnoid spaces are dilated, consistent with mild atrophy. Low attenuation regions are seen within the periventricular white matter bilaterally, likely representing changes from chronic mi crovascular ischemic disease. There is no evidence of edema, mass effect or midline shift. The visu alized paranasal sinuses and mastoid air cells are clear. Impression: No intracranial hemorrhage, mass, or acute infarct. Atrophy and chronic white matter changes, as above. Reviewed, dictated and finalized at location . Impression: No intracranial hemorrhage, mass, or acute infarct. Atrophy and chronic white matter changes, as above.
--- NOTE | ~2023-05-18 | US_ITS ---
EXAMINATION: US carotid duplex BI DATE: 05/19/2023 17:52 INDICATION: Cerebral vascular accident. TECHNIQUE: Grayscale, color Doppler, and pulsed Doppler images of the cervical carotid arteries were obtained. The degree of vessel stenosis is placed in one of the following categories: normal, <50%, 5 0-69%, >=70% but less than near-occlusion, near-occlusion, or total occlusion. Note that percent sten osis relative to normal distal artery lumen diameter is indirectly measured from velocity measurement s as described by Jurgen, et al. Radiology 2003; 229:340-346. COMPARISON: None. FINDINGS: RIGHT: The right common carotid artery (CCA) and internal carotid artery (ICA) are occluded. There is antegr yonas flow in the right vertebral artery. LEFT: The left CCA PSV is 100 cm/s. There is a stent in left internal carotid artery. The left ICA PSV is 1 14 cm/s. The left ICA EDV is 42 cm/s. The left ICA/CCA PSV ratio is 1.1. Grayscale and color Doppler images yield an estimate of <50% diameter reduction from plaque in the ICA. There is antegrade flow i n the left vertebral artery. IMPRESSION: 1. 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 2. <50% stenosis in the left internal carotid artery. Patent stent. Reviewed, dictated and finalized at location E.
--- NOTE | ~2023-05-18 | XR_ITS ---
EXAMINATION: XR chest 1V portable DATE: 05/29/2023 05:39 INDICATION: Pneumonia. TECHNIQUE: A single frontal view of the chest was obtained. COMPARISON: Chest 1 view 05/18/2023, CT abdomen and pelvis 05/18/2023 FINDINGS: The lung volumes are small. There are airspace opacities in the mid and lower lung zones. N o pleural effusion or pneumothorax. The heart size is normal. Surgical clips in the right upper quadr ant are likely from cholecystectomy. IMPRESSION: 1. Mildly worsened airspace opacities in the mid and lower lung zones, consistent with pneumonia. Reviewed, dictated and finalized at location A. IMPRESSION: 1. Mildly worsened airspace opacities in the mid and lower lung zones, consiste nt with pneumonia.
--- NOTE | ~2023-05-18 | CT_ITS ---
EXAMINATION: CTA BRAIN/CAROTID DATE: 05/23/2023 13:33 INDICATION: Stroke TECHNIQUE: Computed tomographic angiography (CTA) of the head and neck was performed with 100 mL Omni paque-350 intravenous contrast. Multiplanar reconstructions and maximum intensity projection 3D-recon structions of the carotid arteries and of the intracranial arteries were created by the technologist on a separate workstation. Precontrast CT of the head was also obtained. Automated exposure control and iterative reconstruction technique were employed.The dose-length product was 1742.21 mGy-cm. COMPARISON: Head CT dated 05/18/2023 FINDINGS: Carotid arteries: Atherosclerotic plaque with no hemodialysis of stenosis and with no dissection at the visualized norm al caliber aortic arch. There is complete occlusion of the right common and internal carotid arteries including a thrombosed stent at the right common carotid artery. Additional stenting of the distal l eft common carotid artery extending to the left carotid bulb. There is 30% incidental stenosis at the left carotid bulb relative to normal distal artery lumen diameter (NASCET criteria). There is additi onal 60% stenosis in the more distal extracranial internal carotid artery. The left vertebral artery is mildly dominant. There is small amount of atherosclerotic plaque with mild stenosis at the origin of the right vertebral artery. Mild biapical pleural-parenchymal scarring. Some tree-in-bud opacities and mucous plugging in the visualized right upper lobe consistent with pneumonia. Moderate to severe cervical spondylosis. Head: No acute intracranial hemorrhage, acute infarction or abnormal extra axial fluid collection. There is moderate scattered white matter hypoattenuation consistent with chronic small vessel ischemic diseas e. Symmetric prominence of the sulci and ventricles consistent with moderate age-appropriate diffuse cerebral volume loss. No mass/mass effect. No abnormally enhancing brain lesions on postcontrast imag ing. Changes of bilateral intraocular lens replacement. The orbits, paranasal sinuses and mastoid air cells are normal. 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 Small amount o f atherosclerotic plaque without hemodynamic significant stenosis along the intracranial left vertebr al artery. The intracranial right internal carotid artery is occluded throughout the carotid siphon w ith reconstitution of flow via a patent right posterior communicating artery. Scattered atherosclerot ic plaque along the left carotid siphon without hemodynamically significant stenosis. The bilateral A 1 and P1 segments are patent. In addition to the right posterior communicating artery there is a duffy nt anterior communicating artery. There are no aneurysms identified. Cerebral arterial arborization a ppears symmetric. IMPRESSION: 1. 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 2. Stenting of the left carotid bulb and is most left common carotid artery with 30% in stent stenosi s of the right carotid bulb relative to normal distal artery lumen diameter (NASCET criteria) and 60% stenosis in the more distal extracranial left internal carotid artery. 3. Collateral resupply of the distalmost right internal carotid artery via a patent right posterior c ommuting artery with potential for additional collateral flow to the right anterior cerebral artery v ia a patent anterior to indicating artery. 4. No acute intracranial process or abnormally enhancing brain lesions. 5. Age-related changes of brain including moderate diffuse volume loss and mild to moderate scattered white matter hypoattenuation consistent with chronic small vessel ischemic disease. 6. Pneumonia in the visualized right upper lobe.
--- NOTE | ~2023-05-18 | XR_ITS ---
XR chest 1V portable 05/18/2023 12:04 Indication: Dizziness. Productive cough. Thick yellow sputum. Procedure: AP portable chest Comparison: 01/28/ Findings: Bibasilar airspace disease. Heart size normal. Healed right clavicle fracture. No acute oss eous abnormality. No edema or pneumothorax. Impression: 1: Bibasilar airspace disease which may represent pneumonia and/or atelectasis/scarring. Reviewed, dictated and finalized at location L. Impression: 1: Bibasilar airspace disease which may represent pneumonia and/or atelectasis/ scarring.
--- NOTE | ~2023-05-18 | CT_ITS ---
EXAMINATION: CT abdomen pelvis w con DATE: 05/18/2023 13:57 INDICATION: Low abdominal pain. TECHNIQUE: Computed tomography (CT) of the abdomen and pelvis was performed with 100 mL Omnipaque 350 intravenous contrast. Automated exposure control and iterative reconstruction technique were employe d. The dose-length product was 338.73 mGy-cm. COMPARISON: None. FINDINGS: The visualized portions of the lung bases demonstrate centrilobular nodules and tree-in-bud opacities in right middle lobe and right lower lobe. There is extensive mucous plugging in right low er lobe and right middle lobe. There is a 20 mm nodule in lingula. There is mild atelectasis in left lung. There is a pleural plaque on the left. There is a trace right pleural effusion with pleural thi ckening. The heart size is normal. There are coronary artery calcifications. No pericardial effusion. The liver and spleen are normal. There are changes of cholecystectomy. The pancreas and adrenal glan ds are normal. There is cortical thinning of the kidneys. There is an 18 mm cyst in right kidney. The prostate is moderately enlarged. There is a right inguinal hernia containing nonobstructed small bow el. The appendix is normal. Stool distends the rectum. There is a left inguinal hernia containing fat . There is calcified atherosclerosis of the aorta and many of the other arteries. There is moderate s tenosis of superior mesenteric artery. There are no pathologically enlarged lymph nodes. There is no free intraperitoneal fluid. There is severe lumbar spondylosis. IMPRESSION: 1. Right inguinal hernia containing nonobstructed small bowel. 2. Left inguinal hernia containing fat. 3. Pneumonia involving right middle lobe and right lower lobe with extensive mucous plugging. 4. 20 mm nodule in lingula, probably infection given the other lung findings. Noncontrast low-dose ch est CT is recommended in one month to exclude malignancy. Reviewed, dictated and finalized at location A. IMPRESSION: 1. Right inguinal hernia containing nonobstructed small bowel. 2. Left inguinal hernia containing fat. 3. Pneumonia involving right middle lobe and right lower lobe with extensive mu cous plugging. 4. 20 mm nodule in lingula, probably infection given the other lung findings. N oncontrast low-dose chest CT is recommended in one month to exclude malignancy.
--- NOTE | ~2023-05-18 | XR_ITS ---
MODIFIED ESOPHAGRAM HISTORY: Aspiration pneumonia TECHNIQUE: Modified barium esophagram was performed on 05/26/2023. I administered fluoroscopy and perf ormed the exam with speech pathologist. Patient was seated for lateral fluoroscopic imaging for iftikhar stion of thin liquids, pudding, solids and quantified amounts, followed by thin liquids in uncontroll ed amounts. This was recorded on tape. A single fluoroscopic spot image was also recorded. The DAP fo r this procedure was 1.323 Gycm2. The amount of fluoroscopy time used during this procedure was 2.5 m inutes. FINDINGS: Bilateral carotid artery stents. Moderate to severe cervical spondylosis. Oral stage: Adequate function. Pharyngeal stage: Reduced laryngeal elevation and tongue base retraction. This results in residue in the vallecula, piriform sinus and along the pharyngeal wall. There is trace but consistent laryngeal penetration with uncontrolled thin liquids. No aspiration. There is a posterior cricopharyngeal bar. Cervical/esophageal stage: There is slight esophageal/pharyngeal backflow.. IMPRESSION: Pharyngeal dysphagia with recurrent trace laryngeal penetration without aspiration with u ncontrolled thin liquids. Please correlate with speech pathologist findings and specific feeding rec ommendations. Reviewed, dictated and finalized at location A. IMPRESSION: Pharyngeal dysphagia with recurrent trace laryngeal penetration wit hout aspiration with uncontrolled thin liquids. Please correlate with speech p athologist findings and specific feeding recommendations.
--- NOTE | 2023-05-18 11:29 | ECG_ITS ---
Measurements Intervals [place] Rate: 89 P: -78 NH: 94 QRS: 34 QRSD: 90 T: 79 QT: 357 QTc: 437 Interpretive Statements SINUS RHTYM WITH FIRST DEGREE AV BLOCK NONSPECIFIC ST & T-WAVE ABNORMALITY- ANTEROLAT/HIGH LAT LEADS BASELINE WANDER- I, II, AVR, AVF, V6 BORDERLINE ECG COMPARED TO ECG 01/24/2021 16:41:26 ST-T WAVE ABNORMALITY NOW PRESENT Electronically Signed On 05-18-2023 11:54:35 CDT by Rojelio Thornton D.O.
[2023-05-18 12:48] LABS: Basophils Absolute Auto 0.1 K/mm3 (0.0-0.1); Basophils Percent Auto 0.5 % (0.2-1.2); Eosinophils Absolute Auto 0.3 K/mm3 (0-0.3); Eosinophils Percent Auto 2.2 % (0-4.4); Hematocrit 53.7 % (42.0-52.0); Hemoglobin 17.5 g/dL (14.0-18.0); Immature Granulocyte Absolute 0.15 K/mm3 (0.00-0.031); Immature Granulocyte Percent A 1.1 % (0-0.5); Lymphocytes Absolute Auto 2.17 K/mm3 (0.9-3.2); Lymphocytes Percent Auto 15.9 % (18.3-44.2); Mean Corpuscular HGB Conc 32.6 g/dl (32-36); Mean Corpuscular Hemoglobin 30.6 pg (26-34); Mean Corpuscular Volume 93.9 fl (80-100); Mean Platelet Volume 9.5 fl (7.4-10.4); Monocytes Absolute Auto 0.6 K/mm3 (0.1-0.6); Monocytes Percent Auto 4.6 % (2.6-8.5); Neutrophils Absolute Auto 10.4 K/mm3 (1.3-6.7); Neutrophils Percent Auto 75.7 % (45.5-73.1); Platelet Count Result 209 k/mm3 (150-375); Red Blood Count 5.72 M/mm3 (4.6-6.20); White Blood Count 13.7 K/mm3 (4.5-10.0)
[2023-05-18 13:00] LABS: Alanine Aminotransferase 28 U/L (6-50); Albumin Level 4.8 g/dL (3.5-5.1); Alkaline Phosphatase 101 U/L (38-126); Anion Gap 10 mmol/L (8-16); Aspartate Amino Transferase 37 U/L (17-59); Bilirubin,Total 1.4 mg/dL (0.2-1.3); Blood Urea Nitrogen 19 mg/dL (9-20); Calcium 9.2 mg/dL (8.4-10.2); Carbon Dioxide 28 mmol/L (22-30); Chloride 96 mmol/L (98-107); Estimated CRCL calculation 56 ml/min; Estimated Glomerular Filt Rate > 60; Glucose 157 mg/dL (65-110); Potassium 3.5 mmol/L (3.4-5.0); Sodium 134 mmol/L (137-145)
[2023-05-18 13:12] LABS: Platelet Estimate Adequate (Adequate)
[2023-05-18 13:13] LABS: Anisocytosis 1+ (NORMAL); Hypochromasia 1+ (NORMAL); Microcytosis 1+ (NORMAL); Schistocytes None Seen (NORMAL)
[2023-05-18 13:18] LABS: Troponin I < 0.012 ng/mL (0.000-0.034)
--- NOTE | 2023-05-18 13:44 | ED.GENADULT ---
HPI - General Adult General Chief complaint: Dizziness Stated complaint: hypertension Time Seen by Provider: 05/18/23 11:49 History of Present Illness HPI narrative: Patient is an 83-year-old male who presents ER with dizziness and abdominal pain. Patient is a poor historian due to his discomfort and likely additional medical condition and will not answer orientation questions. 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 [facility] is [facility] and medication list provided by his family member. Patient is having lower abdominal pressure reporting that he needs to have a bowel movement or use restroom. Related Data Home Medications Medication Instructions Recorded Confirmed albuterol sulfate 2.5 mg/3 mL 2.5 mg inhalation DIRECTED PRN 05/18/23 05/18/23 (0.083 %) solution for nebulization bronchospasms diclofenac sodium 1 % topical gel 4 g topical QID 05/18/23 05/18/23 guaifenesin 100 mg/5 mL oral liquid 100 mg PO DIRECTED PRN thick 05/18/23 05/18/23 mucus lisinopril 10 mg tablet 10 mg PO DAILY 05/18/23 05/18/23 meloxicam 7.5 mg tablet 7.5 mg PO DAILY PRN Pain 05/18/23 05/18/23 rosuvastatin 20 mg tablet 20 mg PO QPM 05/18/23 05/18/23 Allergies Allergy/AdvReac Type Severity Reaction Status Date / Time No Known Allergies Allergy Mild Verified 01/24/21 22:03 Review of Systems Review of Systems: ROS unobtainable: Yes unobtainable due to medical condition [facility] Past Medical History Medical History (Updated 05/18/23 @ 21:12 by Enrike Mohan MD) Congestive heart failure (CHF) COPD (chronic obstructive pulmonary disease) Hypertension Surgical History Surgical History (Updated 05/18/23 @ 13:46 by Enrike Mohan MD) Surgical history unknown Family History Family History (Updated 05/18/23 @ 20:07 by Irene Odonnell RN) Other Unknown family medical history Social History Social History Smoking status: Never smoker Additional smoking assessment comments: quit 50 years ago Alcohol intake: current Drinks per week: 7 Substance use: never Lack of Transportation: No Lack of Food: Never True Current Housing: I Have Housing Concerned About Future Housing: No Difficulty Paying Gas/Electric Bills: No Difficulty Paying for Meds: No Currently Unemployed: No Education: High School Diploma/GED Difficulty w/ Childcare or Family Care: No Gender identity (if verbalized by the patient): Male Spiritual care concerns: No Exam Narrative: GENERAL: Uncomfortable-appearing, well-nourished, and in mild distress. HEAD: Normocephalic, atraumatic. EYES: PERRL and EOMI. ENT: Mucous membranes moist. NECK: Supple. CHEST: Clear to auscultation. No respiratory distress. HEART: Regular rate and rhythm. Normal peripheral pulses. ABDOMEN: Soft, suprapubic tenderness with guarding, nondistended. Inguinal hernia present on the right and is easily reducible. EXTREMITIES: Normal range of motion. No edema. SKIN: Warm, dry, no rash. NEURO: Alert and oriented x1-2. Course Course Emergency Course: Patient pain markedly improved after decompression of bladder and receiving morphine. Blood pressure is also improved. Patient is stable. Admit to the hospitalist service for further care. IV antibiotics ordered for pneumonia. Vital Signs Vital signs: Vital Signs Temperature 97.8 F 05/18/23 11:11 Pulse Rate 101 H 05/18/23 11:11 Respiratory Rate 16 05/18/23 11:11 Blood Pressure 243/159 H 05/18/23 11:11 Pulse Oximetry 96 05/18/23 11:11 Oxygen Delivery Room Air 05/18/23 11:11 Temperature 98.6 F 05/18/23 20:47 Pulse Rate 74 05/18/23 20:26 Respiratory Rate 16 05/18/23 20:26 Blood Pressure 142/103 H 05/18/23 20:37 Pulse Oximetry 100 05/18/23 20:26 Oxygen Delivery Room Air 05/18/23 11:11 Medical Decision Making Vital Signs Vital Signs: Vital Signs
[2023-05-18] MEDS: MORPHINE SULFATE (*CRX) 4 MG/ML INJ 2 MG IV PUSH (14:05)
[2023-05-18] MEDS: hydrALAZINE HCL 20 MG/ML VIAL 10 MG IV PUSH (14:06)
--- NOTE | 2023-05-18 16:02 | PC.NURSE ---
at 1440 faxed chart to Jimbo MCDANIEL - Busy response at 1600 refaxed chart to Jimbo MCDANIEL
[2023-05-18] MEDS: AZITHROMYCIN 500 MG/NS 250 ML 500 MG/250 ML BAG 250 MG IVPB (16:27)
[2023-05-18 18:32] LABS: Lactic Acid Reflex 1.1 mmol/L (0.7-2.0)
--- NOTE | 2023-05-18 19:51 | ADMGEN ---
This patient, Luis Carlos Corona, was admitted to Medical Room 346-01. Patient/family oriented to hospital policies and general routines including ID bracelet, bed and alarms, visiting hours, pain management, procedures, bathroom and other care routines, personal items, smoking policy, room service/diet, and visiting hours. Information on how to activate the Rapid Response Team has been discussed. Patient/Family are encouraged to report perceived risks to care and to ask questions if they do not understand what they are told or what they should do.
--- NOTE | 2023-05-18 20:42 | PM.IMHP ---
H&P: HPI History of Present Illness Date/Time: 05/18/23 20:42 Chief Complaint: DIZZINESS Narrative: THIS IS AN 83-YEAR-OLD MALE WITH PAST MEDICAL HISTORY SIGNIFICANT FOR COPD, HYPERTENSION, CONGESTIVE HEART FAILURE. PATIENT WAS BROUGHT TO THE EMERGENCY ROOM DUE TO DIZZINESS MOST OF THE HISTORY HAS BEEN OBTAINED UPON REVIEWING MEDICAL RECORDS PATIENT IS OBTUNDED CAN NOT REALLY CONTRIBUTE TO HISTORY TAKING ACCORDING TO EMERGENCY ROOM RECORDS PATIENT HAD ACUTE URINARY RETENTION HE WAS QUITE UNCOMFORTABLE WITH ABDOMINAL DISCOMFORT A CHEST X-RAY SHOWED LUNG INFILTRATE. Patient admitted for further evaluation management and treatment XR chest 1V portable 05/18/2023 12:04 Indication: Dizziness. Productive cough. Thick yellow sputum. Procedure: AP portable chest Comparison: 01/28/ Findings: Bibasilar airspace disease. Heart size normal. Healed right clavicle fracture. No acute osseous abnormality. No edema or pneumothorax. Impression: 1: Bibasilar airspace disease which may represent pneumonia and/or atelectasis/scarring. EXAMINATION: CT abdomen pelvis w con DATE: 05/18/2023 13:57 INDICATION: Low abdominal pain. TECHNIQUE: Computed tomography (CT) of the abdomen and pelvis was performed with 100 mL Omnipaque 350 intravenous contrast. Automated exposure control and iterative reconstruction technique were employed. The dose-length product was 338.73 mGy-cm. COMPARISON: None. FINDINGS: The visualized portions of the lung bases demonstrate centrilobular nodules and tree-in-bud opacities in right middle lobe and right lower lobe. There is extensive mucous plugging in right lower lobe and right middle lobe. There is a 20 mm nodule in lingula. There is mild atelectasis in left lung. There is a pleural plaque on the left. There is a trace right pleural effusion with pleural thickening. The heart size is normal. There are coronary artery calcifications. No pericardial effusion. The liver and spleen are normal. There are changes of cholecystectomy. The pancreas and adrenal glands are normal. There is cortical thinning of the kidneys. There is an 18 mm cyst in right kidney. The prostate is moderately enlarged. There is a right inguinal hernia containing nonobstructed small bowel. The appendix is normal. Stool distends the rectum. There is a left inguinal hernia containing fat. There is calcified atherosclerosis of the aorta and many of the other arteries. There is moderate stenosis of superior mesenteric artery. There are no pathologically enlarged lymph nodes. There is no free intraperitoneal fluid. There is severe lumbar spondylosis. IMPRESSION: 1. Right inguinal hernia containing nonobstructed small bowel. 2. Left inguinal hernia containing fat. 3. Pneumonia involving right middle lobe and right lower lobe with extensive mucous plugging. 4. 20 mm nodule in lingula, probably infection given the other lung findings. Noncontrast low-dose chest CT is recommended in one month to exclude malignancy. CT head without contrast Indication: Altered mental status COMPARISON: 02/14/2008 Technique: Serial scans were obtained through the brain without the administration of contrast. Dose reduction technique was used on this scan by utilizing automated exposure control and iterative reconstruction technique. The dose-length product (DLP) was 605.33 mGy-cm. Findings: There is no evidence of intracranial hemorrhage, mass lesion, or acute infarct.? The ventricles and subarachnoid spaces are dilated, consistent with mild atrophy.? Low attenuation regions are seen within the periventricular white matter bilaterally, likely representing changes from chronic microvascular ischemic disease. There is no evidence of edema,? mass effect or midline shift.? The visualized paranasal sinuses and mastoid air cells are clear. Impression: No intracranial hemorrhage, mass, or acute infarct. Atrophy and chronic white matter changes, as above. Review of Systems Review
--- NOTE | 2023-05-18 22:41 | PC.NURSE ---
When attempting to get orthostatic BP pt became nauseated/dry heaving and dizzy when sitting on side of bed. He was unable to stand. Dr Byers made aware.
[2023-05-19 06:00] VITALS: BP 170/89; PULSE 71; RESP 18; TEMP 36.5; O2SAT 100
[2023-05-19 08:00] VITALS: PULSE 60; RESP 14; O2SAT 100
[2023-05-19] MEDS: lisinopriL 10 MG TABLET PO (09:20)
[2023-05-19] MEDS: DICLOFENAC SODIUM 1% 100 GM GEL (*BKC) 1 APPLIC TOPICAL ×4 (09:20→22:25)
[2023-05-19] MEDS: AZITHROMYCIN 500 MG/NS 250 ML 500 MG/250 ML BAG 250 MG IVPB (11:51)
--- NOTE | 2023-05-19 13:19 | PM.IMPN ---
Progress Note: A&P Assessment and Plan (1) Dizziness: Code(s): R42 - Dizziness and giddiness Status: Acute Assessment and Plan: Patient presented due to dizziness that started yesterday. CT of the head with no acute intracranial process. MRI brain ordered due to concern for stroke. Orthostatics Q shift Carotid Dopplers ordered (2) Pneumonia: Code(s): J18.9 - Pneumonia, unspecified organism Status: Acute Assessment and Plan: Patient has history of aspiration pneumonia. Patient came in with complaints of Dizziness. Chest x-ray revealing atelectasis versus pneumonia. CT abdomen pelvis revealing pneumonia of right middle lobe and right lower lobe. Patient started on ceftriaxone and Zithromax. DuoNebs ordered. Guaifenesin p.r.n. Attempt sputum culture (3) Congestive heart failure (CHF): Code(s): I50.9 - Heart failure, unspecified Status: Acute Assessment and Plan: Monitor vital signs, I&Os, BUN/creatinine, daily weights, neuro status and patient is a fall risk Monitor serum electrolytes, Keep serum Potassium>4 and serum Magnesium>2 and CBC (4) COPD (chronic obstructive pulmonary disease): Code(s): J44.9 - Chronic obstructive pulmonary disease, unspecified Status: Acute Assessment and Plan: Not in active exacerbation. He is on 1 L of oxygen and does not typically wear this at home although he says that he has an oxygen tank but never uses it. DuoNebs p.r.n. (5) Hypertension: Code(s): I10 - Essential (primary) hypertension Status: Acute Assessment and Plan: Patient presented with extremely elevated blood pressure of 243/159 and patient was treated in the ED for this. Blood pressure improved with treatment continue lisinopril hydralazine p.r.n. for systolic blood pressure greater than 180 Subjective Date/time seen: 05/19/23 13:19 Interval history: patient is having intermittent dizziness that is worse with movement. While patient was sitting comfortably in bed he was not having any dizziness but once he tried to sit up remove around his dizziness started up again. He describes it as feeling lightheaded rather than the room is spinning. Patient has had some pretty significant blood pressure changes since he has been in here this could be related to orthostatics and or positional vertigo. Want to rule out stroke in patient's particular case. Patient was on a tractor yesterday and during that time he started to feel very dizzy and climbed out the tractor and 7 the ground. He was found sitting on the ground was brought in for evaluation. He does have a history of aspiration pneumonia and on chest x-ray and CT of the abdomen pelvis it did showed pneumonia in the right lobe. Exam Narrative: GENERAL: Comfortable, no acute distress HENMT: moist mucous membranes EYES: EOM intact b/l NECK: no lymphadenopathy RESPIRATORY: Bibasilar crackles CARDIO: RRR GI: soft, nontender, bowel sounds present SKIN: no rashes EXTREMITIES: no edema, redness or tenderness Objective Data Vital Signs Vital Signs: Vital Signs - 24 hr 05/18/23 14:03 05/18/23 14:09 05/18/23 14:15 Temperature Pulse Rate 83 81 76 Respiratory Rate 17 18 Blood Pressure 181/108 H 187/98 H Pulse Oximetry 91 96 Oxygen Delivery Oxygen Flow Rate 05/18/23 14:16 05/18/23 14:30 05/18/23 15:00 Temperature Pulse Rate 76 78 78 Respiratory Rate 18 17 19 Blood Pressure 105/72 111/69 107/69 Pulse Oximetry 98 97 98 Oxygen Delivery Oxygen Flow Rate 05/18/23 15:02 05/18/23 15:17 05/18/23 15:31 Temperature Pulse Rate 77 77 75 Respiratory Rate 18 17 20 Blood Pressure Pulse Oximetry 99 98 100 Oxygen Delivery Oxygen Flow Rate 05/18/23 15:55 05/18/23 16:15 05/18/23 16:16 Temperature Pulse Rate 75 70 73 Respiratory Rate 19 18 18 Blood Pressure 134/74
[2023-05-19 14:00] VITALS: BP 143/80; PULSE 60; RESP 14; TEMP 36.8; O2SAT 100
[2023-05-19] MEDS: ACETAMINOPHEN 325 MG TABLET 650 MG PO (17:20)
[2023-05-19 19:38] LABS: Hematocrit 45.5 % (42.0-52.0); Hemoglobin 14.8 g/dL (14.0-18.0); Mean Corpuscular HGB Conc 32.5 g/dl (32-36); Mean Corpuscular Hemoglobin 30.8 pg (26-34); Mean Corpuscular Volume 94.6 fl (80-100); Mean Platelet Volume 9.4 fl (7.4-10.4); Platelet Count Result 196 k/mm3 (150-375); Red Blood Count 4.81 M/mm3 (4.6-6.20); White Blood Count 8.4 K/mm3 (4.5-10.0)
[2023-05-19] MEDS: ROSUVASTATIN 20 MG TABLET PO (19:43)
[2023-05-19 19:49] LABS: Anion Gap 3 mmol/L (8-16); Blood Urea Nitrogen 29 mg/dL (9-20); Calcium 8.5 mg/dL (8.4-10.2); Carbon Dioxide 32 mmol/L (22-30); Chloride 96 mmol/L (98-107); Creatine Kinase 122 U/L (55-170); Estimated CRCL calculation 38 ml/min; Estimated Glomerular Filt Rate 58; Glucose 137 mg/dL (65-110); Potassium 4.1 mmol/L (3.4-5.0); Sodium 131 mmol/L (137-145)
[2023-05-19 20:00] VITALS: O2SAT 96
[2023-05-19 20:06] VITALS: BP 102/60; PULSE 55; RESP 18; TEMP 36.4; O2SAT 99
[2023-05-19] MEDS: LACTATED RINGERS 700 ML 100 ML IV CONT (22:46)
[2023-05-19 22:59] LABS: Appearance Urine Turbid (Clear); Bacteria Urine None Seen /hpf; Bilirubin Urine 1+ (Negative); Blood Urine 3+ (Negative); Color Urine Dark Yellow (Yellow); Glucose Urine UA Negative (Negative); Ketones Urine Negative (Negative); Leukocyte Esterase Ur Negative LEU/UL (Negative); Need Manual Microscopic Reviewed; Nitrate Urine Negative (Negative); Non Pathogenic Casts >20; Protein Urine 2+ mg/dL (Negative); RBC Urine 51-100 /hpf (0-2); Squamous Epithelial Cell Urine Moderate /hpf (Few); Urobilinogen Urine 0.2 mg/dL (<2.0)
[2023-05-19 23:03] LABS: Add Urine Microscopic? YES
[2023-05-20 06:05] LABS: Hematocrit 46.5 % (42.0-52.0); Mean Corpuscular HGB Conc 32.3 g/dl (32-36); Mean Corpuscular Hemoglobin 30.8 pg (26-34); Mean Corpuscular Volume 95.5 fl (80-100); Mean Platelet Volume 8.9 fl (7.4-10.4); Platelet Count Result 180 k/mm3 (150-375); Red Blood Count 4.87 M/mm3 (4.6-6.20); Red Cell Distribution Width 14.9 % (11.5-14.5); White Blood Count 9.1 K/mm3 (4.5-10.0)
[2023-05-20 06:15] LABS: Alanine Aminotransferase 22 U/L (6-50); Albumin Level 3.6 g/dL (3.5-5.1); Alkaline Phosphatase 54 U/L (38-126); Anion Gap 4 mmol/L (8-16); Aspartate Amino Transferase 31 U/L (17-59); Bilirubin,Total 1.1 mg/dL (0.2-1.3); Blood Urea Nitrogen 31 mg/dL (9-20); Calcium 8.7 mg/dL (8.4-10.2); Carbon Dioxide 31 mmol/L (22-30); Chloride 97 mmol/L (98-107); Estimated CRCL calculation 35 ml/min; Estimated Glomerular Filt Rate 53; Glucose 98 mg/dL (65-110); Sodium 132 mmol/L (137-145)
[2023-05-20 06:18] VITALS: BP 150/63; PULSE 77; RESP 16; TEMP 36.6; O2SAT 100
[2023-05-20 08:00] VITALS: BP 95/52; PULSE 60; O2SAT 96; O2SAT 98
[2023-05-20] MEDS: DICLOFENAC SODIUM 1% 100 GM GEL (*BKC) 1 APPLIC TOPICAL (08:42)
[2023-05-20] MEDS: lisinopriL 10 MG TABLET PO (08:43)
[2023-05-20 09:29] LABS: Influenza A QL RT-PCR Negative (Negative); Influenza B QL RT-PCR Negative (Negative); RSV RNA, RT-PCR Negative (Negative); SARS-CoV-2 RNA PCR Negative (Negative)
[2023-05-20] MEDS: AZITHROMYCIN 500 MG/NS 250 ML 500 MG/250 ML BAG 250 MG IVPB (10:04)
[2023-05-20 11:09] VITALS: BP 100/54; PULSE 66; O2SAT 98
--- NOTE | 2023-05-20 13:52 | PM.IMPN ---
Progress Note: A&P Assessment and Plan (1) Dizziness: Code(s): R42 - Dizziness and giddiness Status: Acute Assessment and Plan: Patient presented due to dizziness that started yesterday. CT of the head with no acute intracranial process. MRI brain ordered due to concern for stroke. Has a stent and trying to get medical records. 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 Less than 50 spread stenosis in the left internal carotid artery, patent stent. (2) Pneumonia: Code(s): J18.9 - Pneumonia, unspecified organism Status: Acute Assessment and Plan: Patient has history of aspiration pneumonia. Patient came in with complaints of Dizziness. Chest x-ray revealing atelectasis versus pneumonia. CT abdomen pelvis revealing pneumonia of right middle lobe and right lower lobe. Patient started on ceftriaxone and Zithromax. DuoNebs ordered. Guaifenesin p.r.n. Attempt sputum culture (3) Congestive heart failure (CHF): Code(s): I50.9 - Heart failure, unspecified Status: Acute Assessment and Plan: Monitor vital signs, I&Os, BUN/creatinine, daily weights, neuro status and patient is a fall risk Monitor serum electrolytes, Keep serum Potassium>4 and serum Magnesium>2 and CBC (4) COPD (chronic obstructive pulmonary disease): Code(s): J44.9 - Chronic obstructive pulmonary disease, unspecified Status: Acute Assessment and Plan: Not in active exacerbation. He is on 1 L of oxygen and does not typically wear this at home although he says that he has an oxygen tank but never uses it. DuoNebs p.r.n. (5) Hypertension: Code(s): I10 - Essential (primary) hypertension Status: Acute Assessment and Plan: Patient presented with extremely elevated blood pressure of 243/159 and patient was treated in the ED for this. Blood pressure improved with treatment continue lisinopril hydralazine p.r.n. for systolic blood pressure greater than 180 Subjective Date/time seen: 05/20/23 13:52 Interval history: Patient doing well today and when he leans forward in the bed he did not have any dizziness today his orthostatics were negative although he was not able to stand due to the dizziness. 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 Going to have PT and OT work with the patient. Apparently patient lives at home with his although he does not appear safe to return there. Exam Narrative: GENERAL: Comfortable, no acute distress HENMT: moist mucous membranes EYES: EOM intact b/l NECK: no lymphadenopathy RESPIRATORY: Bibasilar crackles CARDIO: RRR GI: soft, nontender, bowel sounds present SKIN: no rashes EXTREMITIES: no edema, redness or tenderness Objective Data Vital Signs Vital Signs: Vital Signs - 24 hr 05/19/23 14:00 05/19/23 20:06 05/19/23 20:00 Temperature 98.2 F 97.6 F Pulse Rate 60 55 L Respiratory Rate 14 18 Blood Pressure 143/80 H 102/60 Pulse Oximetry 100 99 96 Oxygen Delivery Nasal Cannula Oxygen Flow Rate 2 05/20/23 06:18 05/20/23 08:00 05/20/23 11:09 Temperature 97.8 F Pulse Rate 77 60 66 Respiratory Rate 16 Blood Pressure 150/63 H 95/52 L 100/54 L Pulse Oximetry 100 96 98 Oxygen Delivery Oxygen Flow Rate Intake/Output Intake/Output: Intake & Output 05/17/23 05/18/23 05/19/23 05/20/23 23:59 23:59 23:59 23:59 Intake Total 300 470 540 Output Total 500 200 Balance 300 -30 340 Meds/Results Medications: Active Medications Generic Name Dose Route Start Last Admin Trade Name Freq PRN Reason Stop Dose Admin Acetaminophen 650 mg 05/18/23 17:23 05/19/23 17:20 Acetaminophen 325 Mg Tablet PO 650 mg Q4H PRN Administration Mild Pain (1-3) or Fever Hydrocodone Bitart/Aceta
[2023-05-20 14:37] VITALS: BP 80/40
[2023-05-20] MEDS: SODIUM CHLORIDE 0.9% IV 500 ML 999 ML IV CONT (14:53)
[2023-05-20 16:45] VITALS: BP 170/76
[2023-05-20] MEDS: ROSUVASTATIN 20 MG TABLET PO (17:05)
[2023-05-20 22:06] VITALS: BP 135/72; PULSE 60; RESP 18; TEMP 36.5; O2SAT 97
[2023-05-21] VITALS (9 sets, daily range): BP systolic 76–224; BP diastolic 51–112; PULSE 62–135; RESP 15–20; TEMP 35.5–36.8; O2SAT 95–98
[2023-05-21] MEDS: DICLOFENAC SODIUM 1% 100 GM GEL (*BKC) 1 APPLIC TOPICAL ×4 (00:45→17:35)
[2023-05-21 06:36] LABS: Hematocrit 44.1 % (42.0-52.0); Hemoglobin 14.7 g/dL (14.0-18.0); Mean Corpuscular HGB Conc 33.3 g/dl (32-36); Mean Corpuscular Hemoglobin 31.1 pg (26-34); Mean Corpuscular Volume 93.2 fl (80-100); Mean Platelet Volume 9.1 fl (7.4-10.4); Platelet Count Result 172 k/mm3 (150-375); Red Blood Count 4.73 M/mm3 (4.6-6.20); Red Cell Distribution Width 14.6 % (11.5-14.5)
[2023-05-21 06:41] LABS: Anion Gap 6 mmol/L (8-16); Blood Urea Nitrogen 28 mg/dL (9-20); Calcium 8.5 mg/dL (8.4-10.2); Carbon Dioxide 29 mmol/L (22-30); Chloride 98 mmol/L (98-107); Estimated CRCL calculation 50 ml/min; Estimated Glomerular Filt Rate > 60; Glucose 93 mg/dL (65-110); Potassium 3.7 mmol/L (3.4-5.0); Sodium 133 mmol/L (137-145)
[2023-05-21] MEDS: AZITHROMYCIN 500 MG/NS 250 ML 500 MG/250 ML BAG 250 MG IVPB (08:36)
[2023-05-21] MEDS: lisinopriL 10 MG TABLET PO (08:39)
[2023-05-21] MEDS: hydrALAZINE HCL 20 MG/ML VIAL 10 MG IV PUSH ×2 (09:53→20:47)
--- NOTE | 2023-05-21 12:25 | PM.IMPN ---
Progress Note: A&P Assessment and Plan (1) Dizziness: Code(s): R42 - Dizziness and giddiness Status: Acute Assessment and Plan: Patient presented due to dizziness that started yesterday. CT of the head with no acute intracranial process. MRI brain ordered due to concern for stroke. Has a stent and trying to get medical records. 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 Less than 50 spread stenosis in the left internal carotid artery, patent stent. 05/21 he continues to have dizziness, will try meclizine. (2) Pneumonia: Code(s): J18.9 - Pneumonia, unspecified organism Status: Acute Assessment and Plan: Patient has history of aspiration pneumonia. Patient came in with complaints of Dizziness. Chest x-ray revealing atelectasis versus pneumonia. CT abdomen pelvis revealing pneumonia of right middle lobe and right lower lobe. Patient started on ceftriaxone and Zithromax. DuoNebs ordered. Guaifenesin p.r.n. sputum culture pending (3) Congestive heart failure (CHF): Code(s): I50.9 - Heart failure, unspecified Status: Acute Assessment and Plan: Monitor vital signs, I&Os, BUN/creatinine, daily weights, neuro status and patient is a fall risk Monitor serum electrolytes, Keep serum Potassium>4 and serum Magnesium>2 and CBC (4) COPD (chronic obstructive pulmonary disease): Code(s): J44.9 - Chronic obstructive pulmonary disease, unspecified Status: Acute Assessment and Plan: Not in active exacerbation. He is on 1 L of oxygen and does not typically wear this at home although he says that he has an oxygen tank but never uses it. DuoNebs p.r.n. (5) Hypertension: Code(s): I10 - Essential (primary) hypertension Status: Acute Assessment and Plan: Patient presented with extremely elevated blood pressure of 243/159 and patient was treated in the ED for this. Blood pressure improved with treatment continue lisinopril hydralazine p.r.n. for systolic blood pressure greater than 180 Subjective Date/time seen: 05/21/23 12:25 Interval history: Patient continues to have dizziness. Unable to get records yet so an MRI cannot be performed. Will try meclizine see if this helps the patient. He denies any nausea associated with this dizziness. PT and OT plan to work with him today. Exam Narrative: GENERAL: Comfortable, no acute distress HENMT: moist mucous membranes EYES: EOM intact b/l NECK: no lymphadenopathy RESPIRATORY: Bibasilar crackles CARDIO: RRR GI: soft, nontender, bowel sounds present SKIN: no rashes EXTREMITIES: no edema, redness or tenderness Objective Data Vital Signs Vital Signs: Vital Signs - 24 hr 05/20/23 14:37 05/20/23 16:45 05/20/23 22:06 Temperature 97.7 F Pulse Rate 60 Respiratory Rate 18 Blood Pressure 80/40 L 170/76 H 135/72 Pulse Oximetry 97 Oxygen Delivery 05/20/23 20:00 05/21/23 05:08 05/21/23 08:46 Temperature 97.9 F Pulse Rate 62 118 H Respiratory Rate 16 15 Blood Pressure 149/83 H 197/91 H Pulse Oximetry 98 Oxygen Delivery Room Air 05/21/23 08:45 05/21/23 08:55 05/21/23 08:00 Temperature Pulse Rate 118 H 135 H 116 H Respiratory Rate Blood Pressure 197/91 H 224/112 H 188/91 H Pulse Oximetry Oxygen Delivery 05/21/23 08:25 Temperature Pulse Rate Respiratory Rate Blood Pressure Pulse Oximetry Oxygen Delivery Room Air Intake/Output Intake/Output: Intake & Output 05/18/23 05/19/23 05/20/23 05/21/23 23:59 23:59 23:59 23:59 Intake Total 053 575 6804 390 Output Total 500 500 350 Balance 300 -30 980 40 Meds/Results Medications: Active Medications Generic Name Dose Route Start Last Admin Trade Name Freq PRN Reason Stop Dose Admin Acetaminophen 650 mg
--- NOTE | 2023-05-21 12:35 | PCOTNOTE ---
Attempted OT evaluation, patient and family refuse evaluation today due to dizziness and fatigue. Will follow.
[2023-05-21] MEDS: MECLIZINE HCL 12.5 MG TABLET PO ×3 (14:44→20:45)
[2023-05-21] MEDS: ROSUVASTATIN 20 MG TABLET PO (17:35)
[2023-05-22] VITALS (13 sets, daily range): BP systolic 93–200; BP diastolic 55–86; PULSE 56–70; RESP 16–20; TEMP 36.7–36.8; O2SAT 92–98
[2023-05-22] MEDS: lisinopriL 10 MG TABLET PO (07:59)
[2023-05-22] MEDS: MECLIZINE HCL 12.5 MG TABLET PO ×4 (07:59→21:02)
[2023-05-22] MEDS: DICLOFENAC SODIUM 1% 100 GM GEL (*BKC) 1 APPLIC TOPICAL (08:00)
[2023-05-22] MEDS: AZITHROMYCIN 500 MG/NS 250 ML 500 MG/250 ML BAG 250 MG IVPB (08:36)
[2023-05-22] MEDS: hydrALAZINE HCL 20 MG/ML VIAL 10 MG IV PUSH (11:25)
--- NOTE | 2023-05-22 11:46 | PC.NURSE ---
Kathleen Horton notified of bp 200/86. Hydralazine given IV
--- NOTE | 2023-05-22 14:29 | PM.IMPN ---
Progress Note: A&P Assessment and Plan (1) Dizziness: Code(s): R42 - Dizziness and giddiness Status: Acute Assessment and Plan: Patient presented due to dizziness that started yesterday. CT of the head with no acute intracranial process. MRI brain ordered due to concern for stroke. Has a stent and trying to get medical records. 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 Less than 50 spread stenosis in the left internal carotid artery, patent stent. 05/21 he continues to have dizziness, will try meclizine. (2) Pneumonia: Code(s): J18.9 - Pneumonia, unspecified organism Status: Acute Assessment and Plan: Patient has history of aspiration pneumonia. Patient came in with complaints of Dizziness. Chest x-ray revealing atelectasis versus pneumonia. CT abdomen pelvis revealing pneumonia of right middle lobe and right lower lobe. Patient started on ceftriaxone and Zithromax. DuoNebs ordered. Guaifenesin p.r.n. sputum culture pending (3) Congestive heart failure (CHF): Code(s): I50.9 - Heart failure, unspecified Status: Acute Assessment and Plan: Monitor vital signs, I&Os, BUN/creatinine, daily weights, neuro status and patient is a fall risk Monitor serum electrolytes, Keep serum Potassium>4 and serum Magnesium>2 and CBC (4) COPD (chronic obstructive pulmonary disease): Code(s): J44.9 - Chronic obstructive pulmonary disease, unspecified Status: Acute Assessment and Plan: Not in active exacerbation. He is on 1 L of oxygen and does not typically wear this at home although he says that he has an oxygen tank but never uses it. DuoNebs p.r.n. (5) Hypertension: Code(s): I10 - Essential (primary) hypertension Status: Acute Assessment and Plan: Patient presented with extremely elevated blood pressure of 243/159 and patient was treated in the ED for this. Blood pressure improved with treatment continue lisinopril hydralazine p.r.n. for systolic blood pressure greater than 180 Subjective Date/time seen: 05/22/23 14:29 Interval history: Patient continues to have dizziness. Nursing staff has attempted to get a hold of his PCP in order to get records from his carotid stent placement. Daughter is driving to patient's PCP in ordered to try to get medical records. patient continues to have cough with sputum production. Exam Narrative: GENERAL: Comfortable, no acute distress HENMT: moist mucous membranes EYES: EOM intact b/l NECK: no lymphadenopathy RESPIRATORY: Bibasilar crackles CARDIO: RRR GI: soft, nontender, bowel sounds present SKIN: no rashes EXTREMITIES: no edema, redness or tenderness Objective Data Vital Signs Vital Signs: Vital Signs - 24 hr 05/21/23 14:48 05/21/23 20:00 05/21/23 21:40 Temperature 98.2 F Pulse Rate 62 Respiratory Rate 18 Blood Pressure 94/55 L 181/89 H Pulse Oximetry 97 Oxygen Delivery Room Air 05/21/23 21:41 05/21/23 21:41 05/22/23 05:53 Temperature 98.1 F Pulse Rate 71 69 56 L Respiratory Rate 18 20 18 Blood Pressure 192/98 H 199/90 H 120/61 Pulse Oximetry 97 95 98 Oxygen Delivery 05/22/23 08:00 05/22/23 11:15 05/22/23 12:47 Temperature Pulse Rate Respiratory Rate Blood Pressure 200/86 H 93/55 L Pulse Oximetry 98 Oxygen Delivery Room Air 05/22/23 13:45 Temperature Pulse Rate Respiratory Rate Blood Pressure 100/60 Pulse Oximetry Oxygen Delivery Intake/Output Intake/Output: Intake & Output 05/19/23 05/20/23 05/21/23 05/22/23 23:59 23:59 23:59 23:59 Intake Total 470 1480 1160 1180 Output Total 959 173 2462 250 Balance -30 980 110 930 Meds/Results Medications: Active Medications Generic Name Dose Route Start Last Admin Trade Name Freq PRN Re
--- NOTE | 2023-05-22 14:45 | PCPTNOTE ---
Attempted to see patient for PT, however RN advised not to see patient for PT at this time due to patient's blood pressures.
[2023-05-22] MEDS: ROSUVASTATIN 20 MG TABLET PO (17:11)
[2023-05-22] MEDS: AMOXICILLIN/CLAVULANATE K 875-125 MG TAB 1 TABLET PO (21:02)
[2023-05-22] MEDS: ALBUTEROL SULFATE NEB 2.5 MG/3 ML INH INHALATION (21:39)
[2023-05-22] MEDS: IPRATROPIUM BR 0.02% INH SOLN 0.5 MG/2.5 ML VIAL INHALATION (21:39)
[2023-05-23] VITALS (11 sets, daily range): BP systolic 92–176; BP diastolic 50–88; PULSE 65–80; RESP 14–20; TEMP 36.2–36.6; O2SAT 93–98
[2023-05-23] MEDS: ALBUTEROL SULFATE NEB 2.5 MG/3 ML INH INHALATION ×3 (03:33→19:58)
[2023-05-23] MEDS: IPRATROPIUM BR 0.02% INH SOLN 0.5 MG/2.5 ML VIAL INHALATION ×3 (03:33→19:58)
[2023-05-23 05:47] LABS: Hematocrit 42.1 % (42.0-52.0); Hemoglobin 13.3 g/dL (14.0-18.0); Mean Corpuscular HGB Conc 31.6 g/dl (32-36); Mean Corpuscular Hemoglobin 30.9 pg (26-34); Mean Corpuscular Volume 97.7 fl (80-100); Mean Platelet Volume 9.5 fl (7.4-10.4); Platelet Count Result 170 k/mm3 (150-375); Red Blood Count 4.31 M/mm3 (4.6-6.20); Red Cell Distribution Width 14.8 % (11.5-14.5); White Blood Count 9.6 K/mm3 (4.5-10.0)
[2023-05-23 06:01] LABS: Alanine Aminotransferase 25 U/L (6-50); Albumin Level 3.3 g/dL (3.5-5.1); Alkaline Phosphatase 52 U/L (38-126); Anion Gap 5 mmol/L (8-16); Aspartate Amino Transferase 35 U/L (17-59); Bilirubin,Total 0.9 mg/dL (0.2-1.3); Blood Urea Nitrogen 24 mg/dL (9-20); Calcium 8.4 mg/dL (8.4-10.2); Carbon Dioxide 30 mmol/L (22-30); Chloride 97 mmol/L (98-107); Estimated CRCL calculation 45 ml/min; Estimated Glomerular Filt Rate > 60; Glucose 116 mg/dL (65-110); Potassium 3.6 mmol/L (3.4-5.0); Sodium 132 mmol/L (137-145)
[2023-05-23] MEDS: lisinopriL 10 MG TABLET PO (09:47)
[2023-05-23] MEDS: AMOXICILLIN/CLAVULANATE K 875-125 MG TAB 1 TABLET PO ×2 (09:47→19:57)
[2023-05-23] MEDS: MECLIZINE HCL 12.5 MG TABLET PO ×4 (09:47→19:57)
--- NOTE | 2023-05-23 11:12 | PM.IMPN ---
Progress Note: A&P Assessment and Plan (1) Dizziness: Code(s): R42 - Dizziness and giddiness Status: Acute Assessment and Plan: Patient presented due to dizziness that started yesterday. CT of the head with no acute intracranial process. MRI brain ordered due to concern for stroke. Has a stent and trying to get medical records. 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 Less than 50 spread stenosis in the left internal carotid artery, patent stent. 05/21 meclizine q.i.d. ordered. 05/23 Unable to receive records regarding patient's left carotid stent. Attempting to get patient transferred to [facility]. (2) Pneumonia: Code(s): J18.9 - Pneumonia, unspecified organism Status: Acute Assessment and Plan: Patient has history of aspiration pneumonia and sees pulmonology at [place] for this. Patient came in with complaints of Dizziness. Chest x-ray revealing atelectasis versus pneumonia. CT abdomen pelvis revealing pneumonia of right middle lobe and right lower lobe. Patient started on ceftriaxone and Zithromax. DuoNebs ordered. Guaifenesin p.r.n. Patient's breath sounds continue to worsen. Pulmonology consulted and appreciate recommendations. (3) Congestive heart failure (CHF): Code(s): I50.9 - Heart failure, unspecified Status: Acute Assessment and Plan: Monitor vital signs, I&Os, BUN/creatinine, daily weights, neuro status and patient is a fall risk Monitor serum electrolytes, Keep serum Potassium>4 and serum Magnesium>2 and CBC (4) COPD (chronic obstructive pulmonary disease): Code(s): J44.9 - Chronic obstructive pulmonary disease, unspecified Status: Acute Assessment and Plan: Not in active exacerbation. He is on 1 L of oxygen and does not typically wear this at home although he says that he has an oxygen tank but never uses it. DuoNebs p.r.n. (5) Hypertension: Code(s): I10 - Essential (primary) hypertension Status: Acute Assessment and Plan: Patient presented with extremely elevated blood pressure of 243/159 and patient was treated in the ED for this. Blood pressure improved with treatment continue lisinopril hydralazine p.r.n. for systolic blood pressure greater than 180 Subjective Date/time seen: 05/23/23 11:12 Interval history: Patient continues to have dizziness and lightheadedness. We were unable to receive the correct records from the [facility] even after patient's daughter went to the hospital herself to collect the paperwork. It is in question whether patient had carotid enterectomy with stent placement surgery done at the [facility] or not. Unable to get MRI due to left carotid stent. Patient is barely able to stand due to his dizziness. Attempting to see if he can receive a bed at [facility] and receive further workup there. Exam Narrative: GENERAL: Comfortable, no acute distress HENMT: moist mucous membranes EYES: EOM intact b/l NECK: no lymphadenopathy RESPIRATORY: Diffuse crackles CARDIO: RRR GI: soft, nontender, bowel sounds present SKIN: no rashes EXTREMITIES: no edema, redness or tenderness Objective Data Vital Signs Vital Signs: Vital Signs - 24 hr 05/22/23 11:15 05/22/23 12:47 05/22/23 13:45 Temperature Pulse Rate Respiratory Rate Blood Pressure 200/86 H 93/55 L 100/60 Pulse Oximetry Oxygen Delivery 05/22/23 15:04 05/22/23 15:05 05/22/23 15:06 Temperature 98.1 F Pulse Rate 70 Respiratory Rate 16 Blood Pressure 134/60 134/60 127/66 Pulse Oximetry 95 Oxygen Delivery 05/22/23 21:39 05/22/23 21:39 05/22/23 21:42 Temperature 98.3 F Pulse Rate 67 67 Respiratory Rate 18 20 Blood Pressure 141/78 H 141/78 H Pulse Oximetry 94 94 Oxygen Delivery 05/22/23 21:48
--- NOTE | 2023-05-23 11:57 | PCOTNOTE ---
The patient treatment was not able to be completed. Patient going for a scan will follow. Will plan to continue treatment per plan of care.
[2023-05-23] MEDS: DICLOFENAC SODIUM 1% 100 GM GEL (*BKC) 1 APPLIC TOPICAL ×3 (12:40→17:34)
[2023-05-23] MEDS: SCOPOLAMINE 1.5 MG PATCH TRANSDERM (12:40)
--- NOTE | 2023-05-23 12:49 | PM.CNPUL ---
Assessment and Plan Assessment and plan (1) Pneumonia: Code(s): J18.9 - Pneumonia, unspecified organism Status: Acute Assessment and Plan: This 83-year-old man presented with dizziness 5 days ago. Abdominal chest CT showed bilateral lower lobe infiltrates with some tree-in-bud pattern and also left lung infiltrate, most likely related to aspiration pneumonia. There is history of aspiration pneumonia in the patient's records and the chest CT findings are also consistent with possible aspiration pneumonia. Patient denied having choking episodes or cough spells when eating/drinking. Leukocyte count is normal. The patient will need repeat chest CT in approximately 5-6 weeks from today to document clearing of bilateral infiltrates. I would continue with current antibiotic to cover possible aspiration pneumonia. Also I would send sputum for atypical mycobacteria infection as patient has no symptoms suggestive of acute pneumonia and the chest CT findings are also consistent with possible atypical mycobacterial infection. I would also get video swallow study. Will follow along with you. (2) COPD (chronic obstructive pulmonary disease): Code(s): J44.9 - Chronic obstructive pulmonary disease, unspecified Status: Acute (3) Dizziness: Code(s): R42 - Dizziness and giddiness Status: Acute (4) Hypoxia: Code(s): R09.02 - Hypoxemia Status: Acute History of Present Illness History of Present Illness Consult date: 05/23/23 Chief complaint: Urinary Retention, Pneumonia, Hypoxia, Elevated Bl Narrative: This 83-year-old man presented with dizziness 5 days ago. Since admission to the hospital he has had workup with abdominal CT. On the CT he had a basal infiltrates suggestive of pneumonia. Patient has been on antibiotics for possible aspiration pneumonia. Patient is currently disoriented to place and time. He had peers fully awake but he does not know where he is and what the day of the week is. Upon questioning he denied having fever chills hemoptysis chest pain palpitations orthopnea. There is a question of a home oxygen he uses on a p.r.n. basis. According to his medical records he has history of previous neck surgery for cancer approximately more than 25 years ago and also history of aspiration pneumonia for which he was hospitalized approximately 2 years ago. On admission his leukocyte count was not elevated. It is unclear whether he has COPD of as there is no previous pulmonary function testing. Patient appears to be comfortable on just room air. Review of Systems Review of Systems: All systems reviewed & are unremarkable except as noted in HPI and below (HPI and below) [facility] Past Medical History Medical History (Updated 05/19/23 @ 13:19 by Kathleen Crowell PA-C) Congestive heart failure (CHF) COPD (chronic obstructive pulmonary disease) Hypertension Surgical History Surgical History (Updated 05/18/23 @ 13:46 by Enrike Mohan MD) Surgical history unknown Family History Family History (Updated 05/18/23 @ 20:07 by Irene Odonnell RN) Other Unknown family medical history Social History Social History Smoking status: Never smoker Additional smoking assessment comments: quit 50 years ago Alcohol intake: current Drinks per week: 7 Substance use: never Lack of Transportation: No Lack of Food: Never True Current Housing: I Have Housing Concerned About Future Housing: No Difficulty Paying Gas/Electric Bills: No Difficulty Paying for Meds: No Currently Unemployed: No Education: High School Diploma/GED Difficulty w/ Childcare or Family Care: No Gender identity (if verbalized by the patient): Male Spiritual care concerns: No Meds Home Medications and Allergies Home Medications Medication Instructions Recorded Confirmed Type albuterol sulfate 2.5 mg/3 mL 2.5 mg inhalation DI
[2023-05-23] MEDS: ROSUVASTATIN 20 MG TABLET PO (17:34)
[2023-05-24] VITALS (13 sets, daily range): BP systolic 118–151; BP diastolic 56–75; PULSE 62–77; RESP 12–20; TEMP 36.2–36.9; O2SAT 93–97
[2023-05-24] MEDS: SODIUM CHLOR 3% 15 ML NEB (RESPIRATORY THERAPY) 6 ML INHALATION (05:21)
--- NOTE | 2023-05-24 05:36 | PCRCNOTE ---
No sputum obtained during sputum induction.
[2023-05-24 05:52] LABS: Hematocrit 40.1 % (42.0-52.0); Hemoglobin 13.1 g/dL (14.0-18.0); Mean Corpuscular HGB Conc 32.7 g/dl (32-36); Mean Corpuscular Hemoglobin 30.8 pg (26-34); Mean Corpuscular Volume 94.4 fl (80-100); Mean Platelet Volume 9.2 fl (7.4-10.4); Platelet Count Result 187 k/mm3 (150-375); Red Blood Count 4.25 M/mm3 (4.6-6.20); Red Cell Distribution Width 14.9 % (11.5-14.5); White Blood Count 15.3 K/mm3 (4.5-10.0)
[2023-05-24 06:32] LABS: Alanine Aminotransferase 28 U/L (6-50); Albumin Level 3.2 g/dL (3.5-5.1); Alkaline Phosphatase 56 U/L (38-126); Anion Gap 2 mmol/L (8-16); Aspartate Amino Transferase 40 U/L (17-59); Bilirubin,Total 0.8 mg/dL (0.2-1.3); Blood Urea Nitrogen 19 mg/dL (9-20); Calcium 8.5 mg/dL (8.4-10.2); Carbon Dioxide 33 mmol/L (22-30); Chloride 98 mmol/L (98-107); Estimated CRCL calculation 45 ml/min; Estimated Glomerular Filt Rate > 60; Glucose 102 mg/dL (65-110); Potassium 3.9 mmol/L (3.4-5.0); Sodium 133 mmol/L (137-145)
[2023-05-24] MEDS: IPRATROPIUM BR 0.02% INH SOLN 0.5 MG/2.5 ML VIAL INHALATION ×3 (07:20→20:29)
[2023-05-24] MEDS: ALBUTEROL SULFATE NEB 2.5 MG/3 ML INH INHALATION ×3 (07:21→20:29)
[2023-05-24] MEDS: lisinopriL 10 MG TABLET PO (09:12)
[2023-05-24] MEDS: MECLIZINE HCL 12.5 MG TABLET PO ×4 (09:12→21:00)
[2023-05-24] MEDS: AMOXICILLIN/CLAVULANATE K 875-125 MG TAB 1 TABLET PO ×2 (09:12→21:00)
[2023-05-24] MEDS: DICLOFENAC SODIUM 1% 100 GM GEL (*BKC) 1 APPLIC TOPICAL ×4 (09:13→21:00)
--- NOTE | 2023-05-24 09:49 | PM.PNPUL ---
Progress Note: A&P Assessment and Plan (1) COPD (chronic obstructive pulmonary disease): Code(s): J44.9 - Chronic obstructive pulmonary disease, unspecified Status: Acute (2) Dizziness: Code(s): R42 - Dizziness and giddiness Status: Acute (3) Pneumonia: Qualifiers: Laterality: bilateral Lung location: lower lobe of lung Pneumonia type: due to unspecified organism Qualified Code(s): J18.9 - Pneumonia, unspecified organism Code(s): J18.9 - Pneumonia, unspecified organism Status: Acute Assessment and Plan: This 83-year-old man with a remote history of neck surgery for cancer has had known history of aspiration based on previous video swallow study, also history of chronic congestion was hospitalized with dizziness. Chest imaging studies showed bilateral lower lobe infiltrates especially on abdominal CT suggestive of aspiration pneumonia. On physical exam he has some rhonchi which is also likely related to aspiration. Patient stated that that aspiration is a no problem and that he takes precautions when swallowing. He remains on room air. Leukocyte count is elevated today while the patient is on Augmentin. In the past he had Staph aureus pneumonia Plan: MRSA screening. Consider switching patient to ceftriaxone and Flagyl while waiting MRSA screening. Nebulized short-acting bronchodilators for chest congestion. Will follow along with you. Subjective Date/time seen: 05/24/23 09:49 Interval history: Patient has no new respiratory symptoms. Upon questioning he admitted having some chronic chest congestion and also coughing spells when eating. In the past he had a positive video swallow study. He was evaluated by speech pathology yesterday. Leukocyte count greater this a.m. while he is on oral antibiotic covering anaerobes. Review of Systems Review of Systems: All systems reviewed & are unremarkable except as noted in HPI and below (HPI and below) Exam Narrative: GENERAL APPEARANCE: Well developed, well nourished, alert and cooperative, and appears to be in no acute distress while on room air SKIN: Inspection of the skin reveals no rashes, ulcerations or petechiae. HEENT: Sclerae anicteric and conjunctivae pink and moist. Extraocular movements were intact and pupils were equal, dry oral mucosa NECK: Supple. There was no thyroid enlargement, and no tenderness, or masses were felt. CHEST: Normal AP diameter and normal contour without any kyphoscoliosis. LUNGS: Crackles at bases posteriorly more on right, no wheezing CARDIAC: There was a regular rate and rhythm without any murmurs, gallops, rubs. ABDOMEN: Soft and nontender with normal bowel sounds. There was no organomegaly. LYMPH NODES: No lymphadenopathy was appreciated in the neck. EXTREMITIES: No cyanosis, clubbing or edema. NEUROLOGIC: Alert and disoriented x 3. Normal affect. Objective Data Vital Signs Vital Signs: Vital Signs - 24 hr 05/23/23 13:49 05/23/23 13:49 05/23/23 14:43 Temperature Pulse Rate 76 Respiratory Rate 20 Blood Pressure 176/88 H 147/78 H Pulse Oximetry Oxygen Delivery 05/23/23 14:45 05/23/23 14:56 05/23/23 15:02 Temperature 36.2 C L Pulse Rate 78 80 Respiratory Rate 20 18 Blood Pressure 147/78 H Pulse Oximetry 98 97 Oxygen Delivery Room Air 05/23/23 19:58 05/23/23 20:04 05/23/23 20:15 Temperature Pulse Rate 73 73 76 Respiratory Rate 20 20 Blood Pressure Pulse Oximetry 93 Oxygen Delivery Room Air 05/23/23 20:00 05/23/23 20:37 05/24/23 05:22 Temperature 36.6 C Pulse Rate 71 77 Respiratory Rate 14 Blood Pressure 92/50 L Pulse Oximetry 93 Oxygen Delivery Room Air 05/24/23 05:36 05/24/23 07:20 05/24/23 07:20 Temperature 36.8 C Pulse Rate 62 72 72 Respiratory Rate 14 18 18 Blood Pressure 118/59 L Pulse Oximetry 96 93 Oxygen Delivery Room Air 05/24/23 07:30 05/24/23 08:00 Temperature Pulse Rat
--- NOTE | 2023-05-24 10:45 | P.PNIM_ITS ---
Progress Note: A&P Assessment and Plan (1) Dizziness: Code(s): R42 - Dizziness and giddiness Status: Acute Assessment and Plan: Patient presented due to dizziness that started yesterday. * CT of the head with no acute intracranial process. * CTA with no acute findings * MRI brain ordered due to concern for stroke. Has a stent and trying to get medical records. 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 Less than 50 spread stenosis in the left internal carotid artery, patent stent. * Continue meclizine * Ears need to be cleaned out, as there is a significant wax build up * Consider ENT if no improvement * Debrox ordered * Wonder if this is migraine (2) Pneumonia: Qualifiers: Pneumonia type: aspiration pneumonia Aspiration pneumonia type: unspecified Laterality: bilateral Lung location: unspecified part of lung Qualified Code(s): J69.0 - Pneumonitis due to inhalation of food and vomit Code(s): J18.9 - Pneumonia, unspecified organism Status: Acute Assessment and Plan: * Presented with complaints of dizziness * CT showed PNA of the right middle and lower lobe * Most likely aspiration * Chest xray atelectasis vs PNA * Ceftriaxone and azithromycin changed to augmentin * Sputum culture grew yeast * Pulmonary consulted (3) Congestive heart failure (CHF): Qualifiers: Heart failure type: diastolic Heart failure chronicity: chronic Qualified Code(s): I50.32 - Chronic diastolic (congestive) heart failure Code(s): I50.9 - Heart failure, unspecified Status: Acute Assessment and Plan: * Monitor vital signs, I&Os, BUN/creatinine, daily weights, neuro status and patient is a fall risk * Monitor serum electrolytes, Keep serum Potassium>4 and serum Magnesium>2 and CBC * Echo from 2020 shows EF of >70% with a grade 2 diastolic dysfunction * CXR or CT does not indicate any fluid build up * Continue home medications (4) COPD (chronic 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 He is on 1 L of oxygen and does not typically wear this at home although he says that he has an oxygen tank but never uses it. * Ariel p.r.n. (5) Hypertension: Qualifiers: Hypertension type: primary hypertension Qualified Code(s): I10 - Essential (primary) hypertension Code(s): I10 - Essential (primary) hypertension Status: Acute Assessment and Plan: Patient presented with extremely elevated blood pressure of 243/159 and patient was treated in the ED for this. Blood pressure improved with treatment * continue lisinopril * hydralazine p.r.n. for systolic blood pressure greater than 180 * Current BP is 118/59 Time Spent With Patient Time: Total time 58 minutes 15 minutes used to clean out ears with elephant Time with patient: Greater than 35 minutes Subjective Date/time seen: 05/24/23 1030 Interval history: Patient is lying bed and dark. Patient stated that he still having some dizziness. He denies any current chest pain, shortness a breath, nausea vomiting. He did state th
--- NOTE | 2023-05-24 10:45 | PM.IMPN ---
Progress Note: A&P Assessment and Plan (1) Dizziness: Code(s): R42 - Dizziness and giddiness Status: Acute Assessment and Plan: Patient presented due to dizziness that started yesterday. CT of the head with no acute intracranial process. CTA with no acute findings MRI brain ordered due to concern for stroke. Has a stent and trying to get medical records. 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 Less than 50 spread stenosis in the left internal carotid artery, patent stent. Continue meclizine Ears need to be cleaned out, as there is a significant wax build up Consider ENT if no improvement Debrox ordered Wonder if this is migraine (2) Pneumonia: Qualifiers: Pneumonia type: aspiration pneumonia Aspiration pneumonia type: unspecified Laterality: bilateral Lung location: unspecified part of lung Qualified Code(s): J69.0 - Pneumonitis due to inhalation of food and vomit Code(s): J18.9 - Pneumonia, unspecified organism Status: Acute Assessment and Plan: Presented with complaints of dizziness CT showed PNA of the right middle and lower lobe Most likely aspiration Chest xray atelectasis vs PNA Ceftriaxone and azithromycin changed to augmentin Sputum culture grew yeast Pulmonary consulted (3) Congestive heart failure (CHF): Qualifiers: Heart failure type: diastolic Heart failure chronicity: chronic Qualified Code(s): I50.32 - Chronic diastolic (congestive) heart failure Code(s): I50.9 - Heart failure, unspecified Status: Acute Assessment and Plan: Monitor vital signs, I&Os, BUN/creatinine, daily weights, neuro status and patient is a fall risk Monitor serum electrolytes, Keep serum Potassium>4 and serum Magnesium>2 and CBC Echo from 2020 shows EF of >70% with a grade 2 diastolic dysfunction CXR or CT does not indicate any fluid build up Continue home medications (4) COPD (chronic 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 He is on 1 L of oxygen and does not typically wear this at home although he says that he has an oxygen tank but never uses it. Ariel carterr.n. (5) Hypertension: Qualifiers: Hypertension type: primary hypertension Qualified Code(s): I10 - Essential (primary) hypertension Code(s): I10 - Essential (primary) hypertension Status: Acute Assessment and Plan: Patient presented with extremely elevated blood pressure of 243/159 and patient was treated in the ED for this. Blood pressure improved with treatment continue lisinopril hydralazine p.r.n. for systolic blood pressure greater than 180 Current BP is 118/59 Time Spent With Patient Time: Total time 58 minutes 15 minutes used to clean out ears with elephant Time with patient: Greater than 35 minutes Subjective Date/time seen: 05/24/23 1030 Interval history: Patient is lying bed and dark. Patient stated that he still having some dizziness. He denies any current chest pain, shortness a breath, nausea vomiting. He did state that his cough and his congestion was chronic. Did look into his ears both ears were full and tympanic membrane was even in view. He did state that he was having headaches however denies any hearing changes or vision changes. When I did look at his ears he did state that he has had that happen to him before. Will start him on some Debrox. Review of Systems Review of Systems: All systems reviewed & are unremarkable except as noted in HPI and below Exam Narrative: Gener
[2023-05-24] MEDS: LORATADINE/PSEUDOEPHEDRINE (*CRX) 10/240 MG TABLET ER 24 HR 1 TAB PO (12:56)
[2023-05-24] MEDS: CARBAMIDE PEROXIDE 6.5% OT SOLN 15 ML BTL 10 DROP EACH EAR ×2 (12:57→17:03)
[2023-05-24] MEDS: ROSUVASTATIN 20 MG TABLET PO (17:03)
[2023-05-25] VITALS (14 sets, daily range): BP systolic 154–184; BP diastolic 82–95; PULSE 75–93; RESP 16–18; TEMP 36.6–37.2; O2SAT 94–96
[2023-05-25] MEDS: IPRATROPIUM BR 0.02% INH SOLN 0.5 MG/2.5 ML VIAL INHALATION ×4 (02:16→20:56)
[2023-05-25] MEDS: ALBUTEROL SULFATE NEB 2.5 MG/3 ML INH INHALATION ×4 (02:16→20:56)
[2023-05-25] MEDS: SODIUM CHLOR 3% 15 ML NEB (RESPIRATORY THERAPY) 6 ML INHALATION (05:16)
[2023-05-25 05:52] LABS: Basophils Absolute Auto 0.1 K/mm3 (0.0-0.1); Basophils Percent Auto 0.5 % (0.2-1.2); Eosinophils Absolute Auto 0.3 K/mm3 (0-0.3); Eosinophils Percent Auto 1.8 % (0-4.4); Hematocrit 42.4 % (42.0-52.0); Hemoglobin 13.9 g/dL (14.0-18.0); Immature Granulocyte Absolute 0.13 K/mm3 (0.00-0.031); Immature Granulocyte Percent A 0.9 % (0-0.5); Lymphocytes Absolute Auto 1.37 K/mm3 (0.9-3.2); Mean Corpuscular HGB Conc 32.8 g/dl (32-36); Mean Corpuscular Hemoglobin 31.2 pg (26-34); Mean Corpuscular Volume 95.3 fl (80-100); Mean Platelet Volume 9.5 fl (7.4-10.4); Monocytes Absolute Auto 0.6 K/mm3 (0.1-0.6); Monocytes Percent Auto 4.1 % (2.6-8.5); Neutrophils Absolute Auto 12.7 K/mm3 (1.3-6.7); Neutrophils Percent Auto 83.7 % (45.5-73.1); Platelet Count Result 194 k/mm3 (150-375); Red Blood Count 4.45 M/mm3 (4.6-6.20); Red Cell Distribution Width 14.8 % (11.5-14.5); White Blood Count 15.2 K/mm3 (4.5-10.0)
[2023-05-25 06:20] LABS: Alanine Aminotransferase 27 U/L (6-50); Albumin Level 3.6 g/dL (3.5-5.1); Alkaline Phosphatase 57 U/L (38-126); Anion Gap 4 mmol/L (8-16); Aspartate Amino Transferase 44 U/L (17-59); Bilirubin,Total 1.1 mg/dL (0.2-1.3); Blood Urea Nitrogen 21 mg/dL (9-20); Calcium 8.5 mg/dL (8.4-10.2); Carbon Dioxide 32 mmol/L (22-30); Chloride 97 mmol/L (98-107); Estimated CRCL calculation 50 ml/min; Estimated Glomerular Filt Rate > 60; Glucose 103 mg/dL (65-110); Magnesium 2.1 mg/dL (1.6-2.3); Potassium 3.9 mmol/L (3.4-5.0); Sodium 133 mmol/L (137-145)
[2023-05-25] MEDS: AMOXICILLIN/CLAVULANATE K 875-125 MG TAB 1 TABLET PO (09:08)
[2023-05-25] MEDS: MECLIZINE HCL 12.5 MG TABLET PO ×4 (09:08→20:08)
[2023-05-25] MEDS: lisinopriL 10 MG TABLET PO (09:08)
[2023-05-25] MEDS: DICLOFENAC SODIUM 1% 100 GM GEL (*BKC) 1 APPLIC TOPICAL ×4 (09:09→20:08)
[2023-05-25] MEDS: CARBAMIDE PEROXIDE 6.5% OT SOLN 15 ML BTL 10 DROP EACH EAR ×2 (09:09→17:24)
[2023-05-25] MEDS: LORATADINE/PSEUDOEPHEDRINE (*CRX) 10/240 MG TABLET ER 24 HR 1 TAB PO (09:09)
--- NOTE | 2023-05-25 12:18 | PM.PNPUL ---
Progress Note: A&P Assessment and Plan (1) COPD (chronic obstructive pulmonary disease): Qualifiers: COPD type: emphysema Emphysema type: unspecified Qualified Code(s): J43.9 - Emphysema, unspecified Code(s): J44.9 - Chronic obstructive pulmonary disease, unspecified Status: Acute (2) Dizziness: Code(s): R42 - Dizziness and giddiness Status: Acute (3) Pneumonia: Qualifiers: Laterality: bilateral Lung location: lower lobe of lung Pneumonia type: due to unspecified organism Qualified Code(s): J18.9 - Pneumonia, unspecified organism Code(s): J18.9 - Pneumonia, unspecified organism Status: Acute Assessment and Plan: This 83-year-old man with a remote history of neck surgery for cancer has had known history of aspiration based on previous video swallow study, also history of chronic congestion was hospitalized with dizziness. Chest imaging studies showed bilateral lower lobe infiltrates especially on abdominal CT suggestive of aspiration pneumonia. On physical exam he has some rhonchi which is also likely related to aspiration. Patient stated that that aspiration is a no problem and that he takes precautions when swallowing. He remains on room air. Leukocyte count is elevated today while the patient is on Augmentin. In the past he had Staph aureus pneumonia. Plan: MRSA screening pending. Have discontinued oral antibiotics start the patient ceftriaxone and Flagyl IV. Continue to monitor respiratory status. Subjective Date/time seen: 05/25/23 12:18 Interval history: Patient continues to have a chest congestion, coughing up some light yellow phlegm. He is afebrile, remains on room air. Review of Systems Review of Systems: All systems reviewed & are unremarkable except as noted in HPI and below (HPI and below) Exam Narrative: GENERAL APPEARANCE: Well developed, well nourished, alert and cooperative, and appears to be in no acute distress while on room air SKIN: Inspection of the skin reveals no rashes, ulcerations or petechiae. HEENT: Sclerae anicteric and conjunctivae pink and moist. Extraocular movements were intact and pupils were equal, dry oral mucosa NECK: Supple. There was no thyroid enlargement, and no tenderness, or masses were felt. CHEST: Normal AP diameter and normal contour without any kyphoscoliosis. LUNGS: Crackles at bases posteriorly more on right, no wheezing CARDIAC: There was a regular rate and rhythm without any murmurs, gallops, rubs. ABDOMEN: Soft and nontender with normal bowel sounds. There was no organomegaly. LYMPH NODES: No lymphadenopathy was appreciated in the neck. EXTREMITIES: No cyanosis, clubbing or edema. NEUROLOGIC: Alert and disoriented x 3. Normal affect. Objective Data Vital Signs Vital Signs: Vital Signs - 24 hr 05/24/23 13:45 05/24/23 13:56 05/24/23 14:00 Temperature 36.9 C Pulse Rate 74 75 74 Respiratory Rate 18 20 16 Blood Pressure 151/75 H Pulse Oximetry 97 Oxygen Delivery 05/24/23 15:11 05/24/23 15:58 05/24/23 20:31 Temperature Pulse Rate 73 Respiratory Rate 18 Blood Pressure 148/69 H 138/63 Pulse Oximetry Oxygen Delivery 05/24/23 20:31 05/24/23 20:38 05/24/23 21:10 Temperature 36.2 C L Pulse Rate 73 74 72 Respiratory Rate 18 18 12 Blood Pressure 123/56 L Pulse Oximetry 93 93 Oxygen Delivery Room Air 05/25/23 02:18 05/25/23 04:00 05/25/23 04:05 Temperature 36.6 C Pulse Rate 75 87 Respiratory Rate 18 16 Blood Pressure 184/89 H 158/82 H Pulse Oximetry 95 Oxygen Delivery 05/25/23 07:25 05/25/23 07:30 05/25/23 07:39 Temperature Pulse Rate 83 83 81 Respiratory Rate 18 18 18 Blood Pressure Pulse Oximetry 95 Oxygen Delivery Room Air 05/25/23 08:00 Temperature Pulse Rate Respiratory Rate Blood Pressure Pulse Oximetry Oxygen Delivery Room Air Intake/Output Intake/Output: Intake & Output 05/22/23
[2023-05-25] MEDS: metroNIDAZOLE 500 MG/ISO 100ML 500 MG/100 ML BAG 100 MG IVPB ×3 (12:30→23:44)
[2023-05-25] MEDS: hydrALAZINE HCL 20 MG/ML VIAL 10 MG IV PUSH (12:42)
--- NOTE | 2023-05-25 13:45 | P.PNIM_ITS ---
Progress Note: A&P Assessment and Plan (1) Dizziness: Code(s): R42 - Dizziness and giddiness Status: Acute Assessment and Plan: Patient presented due to dizziness that started yesterday. * CT of the head with no acute intracranial process. * CTA with no acute findings * MRI brain ordered due to concern for stroke. Has a stent and trying to get medical records. 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 Less than 50 spread stenosis in the left internal carotid artery, patent stent. * Continue meclizine * Ears irrigated again * No complaints of further or worsening dizziness * Debrox ordered * Wonder if this is migraine (2) Pneumonia: Qualifiers: Aspiration pneumonia type: unspecified Laterality: bilateral Lung location: unspecified part of lung Pneumonia type: aspiration pneumonia Qualified Code(s): J69.0 - Pneumonitis due to inhalation of food and vomit Code(s): J18.9 - Pneumonia, unspecified organism Status: Acute Assessment and Plan: * Presented with complaints of dizziness * CT showed PNA of the right middle and lower lobe * Most likely aspiration * Chest xray atelectasis vs PNA * Augmentin changed to ceftriaxone and flagyl * Sputum culture grew yeast * Pulmonary consulted (3) Congestive heart failure (CHF): Qualifiers: Heart failure type: diastolic Heart failure chronicity: chronic Qualified Code(s): I50.32 - Chronic diastolic (congestive) heart failure Code(s): I50.9 - Heart failure, unspecified Status: Acute Assessment and Plan: * Monitor vital signs, I&Os, BUN/creatinine, daily weights, neuro status and patient is a fall risk * Monitor serum electrolytes, Keep serum Potassium>4 and serum Magnesium>2 and CBC * Echo from 2020 shows EF of >70% with a grade 2 diastolic dysfunction * CXR or CT does not indicate any fluid build up * Continue home medications (4) COPD (chronic 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 He is on 1 L of oxygen and does not typically wear this at home although he says that he has an oxygen tank but never uses it. * Ariel p.r.n. (5) Hypertension: Qualifiers: Hypertension type: primary hypertension Qualified Code(s): I10 - Essential (primary) hypertension Code(s): I10 - Essential (primary) hypertension Status: Acute Assessment and Plan: Patient presented with extremely elevated blood pressure of 243/159 and patient was treated in the ED for this. Blood pressure improved with treatment * continue lisinopril, increase dose to 15mg PO daily * hydralazine p.r.n. for systolic blood pressure greater than 180 * Current BP is 154/93 Time Spent With Patient Time: 48 minutes Time with patient: Greater than 35 minutes Subjective Date/time seen: 05/25/23 1345 Interval history: patient seems to be doing okay. Patient is confused today. Blood pressure is running 200s over 100s. He denies any current chest pain, shortness a breath, nausea, vomiting, diarrhea constipation. He does appear to be very flush. He is al
--- NOTE | 2023-05-25 13:45 | PM.IMPN ---
Progress Note: A&P Assessment and Plan (1) Dizziness: Code(s): R42 - Dizziness and giddiness Status: Acute Assessment and Plan: Patient presented due to dizziness that started yesterday. CT of the head with no acute intracranial process. CTA with no acute findings MRI brain ordered due to concern for stroke. Has a stent and trying to get medical records. 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 Less than 50 spread stenosis in the left internal carotid artery, patent stent. Continue meclizine Ears irrigated again No complaints of further or worsening dizziness Debrox ordered Wonder if this is migraine (2) Pneumonia: Qualifiers: Aspiration pneumonia type: unspecified Laterality: bilateral Lung location: unspecified part of lung Pneumonia type: aspiration pneumonia Qualified Code(s): J69.0 - Pneumonitis due to inhalation of food and vomit Code(s): J18.9 - Pneumonia, unspecified organism Status: Acute Assessment and Plan: Presented with complaints of dizziness CT showed PNA of the right middle and lower lobe Most likely aspiration Chest xray atelectasis vs PNA Augmentin changed to ceftriaxone and flagyl Sputum culture grew yeast Pulmonary consulted (3) Congestive heart failure (CHF): Qualifiers: Heart failure type: diastolic Heart failure chronicity: chronic Qualified Code(s): I50.32 - Chronic diastolic (congestive) heart failure Code(s): I50.9 - Heart failure, unspecified Status: Acute Assessment and Plan: Monitor vital signs, I&Os, BUN/creatinine, daily weights, neuro status and patient is a fall risk Monitor serum electrolytes, Keep serum Potassium>4 and serum Magnesium>2 and CBC Echo from 2020 shows EF of >70% with a grade 2 diastolic dysfunction CXR or CT does not indicate any fluid build up Continue home medications (4) COPD (chronic 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 He is on 1 L of oxygen and does not typically wear this at home although he says that he has an oxygen tank but never uses it. Ariel mcdonald (5) Hypertension: Qualifiers: Hypertension type: primary hypertension Qualified Code(s): I10 - Essential (primary) hypertension Code(s): I10 - Essential (primary) hypertension Status: Acute Assessment and Plan: Patient presented with extremely elevated blood pressure of 243/159 and patient was treated in the ED for this. Blood pressure improved with treatment continue lisinopril, increase dose to 15mg PO daily hydralazine p.r.n. for systolic blood pressure greater than 180 Current BP is 154/93 Time Spent With Patient Time: 48 minutes Time with patient: Greater than 35 minutes Subjective Date/time seen: 05/25/23 1345 Interval history: patient seems to be doing okay. Patient is confused today. Blood pressure is running 200s over 100s. He denies any current chest pain, shortness a breath, nausea, vomiting, diarrhea constipation. He does appear to be very flush. He is also A&O times 1-2. Review of Systems Review of Systems: All systems reviewed & are unremarkable except as noted in HPI and below Exam Narrative: General: well-nourished, ill-appearing 83-year-old male, sitting up in bed, comfortable, NARD Neuro: awake, alert and oriented x4, speech clear, no focal neuro deficits noted HEENMT: normocephalic, atraumatic, EOMI, sclerae anicteric, moist oral mucosa Respiratory: rhonchi and possibly coarse crackles noted to bilateral
[2023-05-25] MEDS: FUROSEMIDE INJ 40 MG/4 ML VIAL 20 MG IV PUSH (17:22)
[2023-05-25] MEDS: ROSUVASTATIN 20 MG TABLET PO (17:23)
[2023-05-25] MEDS: DOCUSATE SODIUM 100 MG CAPSULE PO (20:08)
[2023-05-26] VITALS (17 sets, daily range): BP systolic 86–171; BP diastolic 50–91; PULSE 82–88; RESP 18–20; TEMP 36.4–36.6; O2SAT 91–95
[2023-05-26] MEDS: ALBUTEROL SULFATE NEB 2.5 MG/3 ML INH INHALATION ×4 (02:53→19:35)
[2023-05-26] MEDS: IPRATROPIUM BR 0.02% INH SOLN 0.5 MG/2.5 ML VIAL INHALATION ×4 (02:53→19:35)
[2023-05-26] MEDS: HALOPERIDOL LACTATE 5 MG/ML VIAL 2 MG IM (04:23)
[2023-05-26] MEDS: metroNIDAZOLE 500 MG/ISO 100ML 500 MG/100 ML BAG 100 MG IVPB ×3 (04:29→17:21)
[2023-05-26] MEDS: SODIUM CHLOR 3% 15 ML NEB (RESPIRATORY THERAPY) 6 ML INHALATION (04:50)
[2023-05-26 06:15] LABS: Basophils Absolute Auto 0.1 K/mm3 (0.0-0.1); Basophils Percent Auto 0.6 % (0.2-1.2); Eosinophils Absolute Auto 0.3 K/mm3 (0-0.3); Eosinophils Percent Auto 2.1 % (0-4.4); Hematocrit 42.8 % (42.0-52.0); Hemoglobin 14.2 g/dL (14.0-18.0); Immature Granulocyte Absolute 0.17 K/mm3 (0.00-0.031); Immature Granulocyte Percent A 1.3 % (0-0.5); Lymphocytes Absolute Auto 0.89 K/mm3 (0.9-3.2); Lymphocytes Percent Auto 6.9 % (18.3-44.2); Mean Corpuscular HGB Conc 33.2 g/dl (32-36); Mean Corpuscular Hemoglobin 30.9 pg (26-34); Mean Platelet Volume 9.2 fl (7.4-10.4); Monocytes Absolute Auto 0.7 K/mm3 (0.1-0.6); Monocytes Percent Auto 5.7 % (2.6-8.5); Neutrophils Absolute Auto 10.7 K/mm3 (1.3-6.7); Neutrophils Percent Auto 83.4 % (45.5-73.1); Platelet Count Result 188 k/mm3 (150-375); Red Cell Distribution Width 14.3 % (11.5-14.5); White Blood Count 12.9 K/mm3 (4.5-10.0)
--- NOTE | 2023-05-26 06:26 | PC.NURSE ---
During the night the patient became more confused and started to attempt to exit the bed without aid from the staff. When attempts were made patient attempted to swing at staff and throw his personal phone against the wall. Patient was safely assisted back to the bed, MD was notified for medication support and order request. After review of the patients personal phone, damage had occurred to it and the ward helper was notified for report debriefing. Patient is currently resting comfortably in bed.
[2023-05-26 06:30] LABS: Alanine Aminotransferase 22 U/L (6-50); Albumin Level 3.7 g/dL (3.5-5.1); Alkaline Phosphatase 54 U/L (38-126); Anion Gap 5 mmol/L (8-16); Aspartate Amino Transferase 32 U/L (17-59); Bilirubin,Total 1.2 mg/dL (0.2-1.3); Blood Urea Nitrogen 15 mg/dL (9-20); Calcium 8.6 mg/dL (8.4-10.2); Carbon Dioxide 31 mmol/L (22-30); Chloride 95 mmol/L (98-107); Estimated CRCL calculation 56 ml/min; Estimated Glomerular Filt Rate > 60; Glucose 102 mg/dL (65-110); Potassium 3.7 mmol/L (3.4-5.0); Sodium 131 mmol/L (137-145)
[2023-05-26] MEDS: lisinopriL 5 MG TABLET 15 MG PO (08:38)
[2023-05-26] MEDS: CARBAMIDE PEROXIDE 6.5% OT SOLN 15 ML BTL 10 DROP EACH EAR ×2 (08:38→17:22)
[2023-05-26] MEDS: SCOPOLAMINE 1.5 MG PATCH TRANSDERM (08:39)
[2023-05-26] MEDS: MECLIZINE HCL 12.5 MG TABLET PO ×4 (08:39→20:12)
[2023-05-26] MEDS: LORATADINE/PSEUDOEPHEDRINE (*CRX) 10/240 MG TABLET ER 24 HR 1 TAB PO (08:39)
[2023-05-26] MEDS: DICLOFENAC SODIUM 1% 100 GM GEL (*BKC) 1 APPLIC TOPICAL ×4 (08:57→20:12)
--- NOTE | 2023-05-26 11:45 | P.PNIM_ITS ---
Progress Note: A&P Assessment and Plan (1) Dizziness: Code(s): R42 - Dizziness and giddiness Status: Acute Assessment and Plan: Patient presented due to dizziness that started yesterday. * CT of the head with no acute intracranial process. * CTA with no acute findings * MRI brain ordered due to concern for stroke. Has a stent and trying to get medical records. 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 Less than 50 spread stenosis in the left internal carotid artery, patent stent. * Continue meclizine * Ears irrigated again * dizziness persistent with standing * Supine 171/90, Sitting 142/63, Standing 100/61 * Debrox ordered but can be stopped at this point (2) Pneumonia: Qualifiers: Aspiration pneumonia type: unspecified Laterality: bilateral Lung l ocation: unspecified part of lung Pneumonia type: aspiration pneumonia Qualified Code(s): J69.0 - Pneumonitis due to inhalation of food and vomit Code(s): J18.9 - Pneumonia, unspecified organism Status: Acute Assessment and Plan: * Presented with complaints of dizziness * CT showed PNA of the right middle and lower lobe * Most likely aspiration * Chest xray atelectasis vs PNA * Augmentin changed to IV ceftriaxone and flagyl * Sputum culture grew yeast * Pulmonary consulted (3) Congestive heart failure (CHF): Qualifiers: Heart failure type: diastolic Heart failure chronicity: chronic Qualified Code(s): I50.32 - Chronic diastolic (congestive) heart failure Code(s): I50.9 - Heart failure, unspecified Status: Acute Assessment and Plan: * Monitor vital signs, I&Os, BUN/creatinine, daily weights, neuro status and patient is a fall risk * Monitor serum electrolytes, Keep serum Potassium >4 and serum Magnesium >2 and CBC * Echo from 2020 shows EF of >70% with a grade 2 diastolic dysfunction * CXR or CT does not indicate any fluid build up * Continue home medications (4) COPD (chronic 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 He is on 1 L of oxygen and does not typically wear this at home although he says that he has an oxygen tank but never uses it. * Ariel p.r.n. (5) Hypertension: Qualifiers: Hypertension type: primary hypertension Qualified Code(s): I10 - Essential (primary) hypertension Code(s): I10 - Essential (primary) hypertension Status: Acute Assessment and Plan: Patient presented with extremely elevated blood pressure of 243/159 and patient was treated in the ED for this. Blood pressure improved with treatment * hold lisinopril for now * hydralazine p.r.n. for systolic blood pressure greater than 180 * Current BP is 136/75 * Did have a BP of 86/54 * Hypotension could be from the increase of the lisinopril Time Spent With Patient Time: 58 minutes Time with patient: Greater than 35 minutes Subjective Date/time seen: 05/26/23 1145 Interval history: Patient was lying in bed. Patient stated that he was having the intermittent dizziness especially when he stands. He denies any curren
--- NOTE | 2023-05-26 11:45 | PM.IMPN ---
Progress Note: A&P Assessment and Plan (1) Dizziness: Code(s): R42 - Dizziness and giddiness Status: Acute Assessment and Plan: Patient presented due to dizziness that started yesterday. CT of the head with no acute intracranial process. CTA with no acute findings MRI brain ordered due to concern for stroke. Has a stent and trying to get medical records. 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 Less than 50 spread stenosis in the left internal carotid artery, patent stent. Continue meclizine Ears irrigated again dizziness persistent with standing Supine 171/90, Sitting 142/63, Standing 100/61 Debrox ordered but can be stopped at this point (2) Pneumonia: Qualifiers: Aspiration pneumonia type: unspecified Laterality: bilateral Lung location: unspecified part of lung Pneumonia type: aspiration pneumonia Qualified Code(s): J69.0 - Pneumonitis due to inhalation of food and vomit Code(s): J18.9 - Pneumonia, unspecified organism Status: Acute Assessment and Plan: Presented with complaints of dizziness CT showed PNA of the right middle and lower lobe Most likely aspiration Chest xray atelectasis vs PNA Augmentin changed to IV ceftriaxone and flagyl Sputum culture grew yeast Pulmonary consulted (3) Congestive heart failure (CHF): Qualifiers: Heart failure type: diastolic Heart failure chronicity: chronic Qualified Code(s): I50.32 - Chronic diastolic (congestive) heart failure Code(s): I50.9 - Heart failure, unspecified Status: Acute Assessment and Plan: Monitor vital signs, I&Os, BUN/creatinine, daily weights, neuro status and patient is a fall risk Monitor serum electrolytes, Keep serum Potassium >4 and serum Magnesium >2 and CBC Echo from 2020 shows EF of >70% with a grade 2 diastolic dysfunction CXR or CT does not indicate any fluid build up Continue home medications (4) COPD (chronic 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 He is on 1 L of oxygen and does not typically wear this at home although he says that he has an oxygen tank but never uses it. DuoNebs p.r.n. (5) Hypertension: Qualifiers: Hypertension type: primary hypertension Qualified Code(s): I10 - Essential (primary) hypertension Code(s): I10 - Essential (primary) hypertension Status: Acute Assessment and Plan: Patient presented with extremely elevated blood pressure of 243/159 and patient was treated in the ED for this. Blood pressure improved with treatment hold lisinopril for now hydralazine p.r.n. for systolic blood pressure greater than 180 Current BP is 136/75 Did have a BP of 86/54 Hypotension could be from the increase of the lisinopril Time Spent With Patient Time: 58 minutes Time with patient: Greater than 35 minutes Subjective Date/time seen: 05/26/23 1145 Interval history: Patient was lying in bed. Patient stated that he was having the intermittent dizziness especially when he stands. He denies any current chest pain, shortness a breath, nausea, vomiting, diarrhea or constipation. He is eating pretty well. He also states that he feels a little better today. He also states that his hearing is better as well. Nurse did report that orthostatics are positive. Review of Systems Review of Systems: All systems reviewed & are unremarkable except as noted in HPI and below Exam Narrative: General: well-nourished, ill-appearing 83-year-old male, sitting up in bed, comfortab
--- NOTE | 2023-05-26 15:15 | PCSTNOTE ---
Please refer to the Modified Barium Swallow Evaluation in the EMR.
[2023-05-26] MEDS: ROSUVASTATIN 20 MG TABLET PO (17:22)
[2023-05-27] VITALS (18 sets, daily range): BP systolic 111–165; BP diastolic 64–93; PULSE 65–99; RESP 16–20; TEMP 36.4–36.6; O2SAT 86–98
--- NOTE | 2023-05-27 00:37 | PC.NURSE ---
PT FREQUENTLY SETTING OFF THE BED ALARM STATING HE IS LEAVING TO GO HOME. PT HAS BEEN REORIENTED MULTIPLE TIMES BUT IS STILL CONFUSED AND BECOMING COMBATIVE. PT HAS REFUSED TO LET ME HOOK HIM UP TO HIS 0000 ANTIBIOTIC. WILL ATTEMPT TO GIVE MEDICATION AGAIN IF PT SETTLES DOWN
[2023-05-27] MEDS: IPRATROPIUM BR 0.02% INH SOLN 0.5 MG/2.5 ML VIAL INHALATION ×4 (02:35→19:37)
[2023-05-27] MEDS: ALBUTEROL SULFATE NEB 2.5 MG/3 ML INH INHALATION ×4 (02:35→19:37)
[2023-05-27] MEDS: metroNIDAZOLE 500 MG/ISO 100ML 500 MG/100 ML BAG 100 MG IVPB ×4 (04:52→23:34)
[2023-05-27 05:14] LABS: Alanine Aminotransferase 21 U/L (6-50); Albumin Level 3.6 g/dL (3.5-5.1); Alkaline Phosphatase 58 U/L (38-126); Anion Gap 4 mmol/L (8-16); Aspartate Amino Transferase 33 U/L (17-59); Blood Urea Nitrogen 22 mg/dL (9-20); Calcium 8.9 mg/dL (8.4-10.2); Carbon Dioxide 34 mmol/L (22-30); Chloride 92 mmol/L (98-107); Estimated CRCL calculation 45 ml/min; Estimated Glomerular Filt Rate > 60; Glucose 109 mg/dL (65-110); Potassium 4.5 mmol/L (3.4-5.0); Sodium 130 mmol/L (137-145)
[2023-05-27 05:18] LABS: Basophils Absolute Auto 0.1 K/mm3 (0.0-0.1); Basophils Percent Auto 0.5 % (0.2-1.2); Eosinophils Absolute Auto 0.2 K/mm3 (0-0.3); Eosinophils Percent Auto 1.4 % (0-4.4); Hematocrit 43.6 % (42.0-52.0); Hemoglobin 14.3 g/dL (14.0-18.0); Immature Granulocyte Absolute 0.12 K/mm3 (0.00-0.031); Immature Granulocyte Percent A 0.8 % (0-0.5); Lymphocytes Absolute Auto 1.14 K/mm3 (0.9-3.2); Lymphocytes Percent Auto 7.5 % (18.3-44.2); Mean Corpuscular HGB Conc 32.8 g/dl (32-36); Mean Corpuscular Hemoglobin 30.8 pg (26-34); Mean Corpuscular Volume 93.8 fl (80-100); Mean Platelet Volume 9.4 fl (7.4-10.4); Monocytes Absolute Auto 0.8 K/mm3 (0.1-0.6); Monocytes Percent Auto 5.2 % (2.6-8.5); Neutrophils Absolute Auto 12.8 K/mm3 (1.3-6.7); Neutrophils Percent Auto 84.6 % (45.5-73.1); Platelet Count Result 199 k/mm3 (150-375); Red Blood Count 4.65 M/mm3 (4.6-6.20); Red Cell Distribution Width 14.5 % (11.5-14.5); White Blood Count 15.1 K/mm3 (4.5-10.0)
[2023-05-27] MEDS: LORATADINE/PSEUDOEPHEDRINE (*CRX) 10/240 MG TABLET ER 24 HR 1 TAB PO (08:54)
[2023-05-27] MEDS: DICLOFENAC SODIUM 1% 100 GM GEL (*BKC) 1 APPLIC TOPICAL ×4 (08:54→20:11)
[2023-05-27] MEDS: CARBAMIDE PEROXIDE 6.5% OT SOLN 15 ML BTL 10 DROP EACH EAR ×2 (08:54→17:32)
[2023-05-27] MEDS: MECLIZINE HCL 12.5 MG TABLET PO ×4 (08:54→20:11)
--- NOTE | 2023-05-27 10:02 | PM.IMPN ---
Progress Note: A&P Assessment and Plan (1) Dizziness: Code(s): R42 - Dizziness and giddiness Status: Acute Assessment and Plan: Patient presented due to dizziness that started yesterday. CT of the head with no acute intracranial process. CTA with no acute findings Work up in progress, feeling better slightly. Will continue current treatment. (2) Pneumonia: Qualifiers: Aspiration pneumonia type: unspecified Laterality: bilateral Lung location: unspecified part of lung Pneumonia type: aspiration pneumonia Qualified Code(s): J69.0 - Pneumonitis due to inhalation of food and vomit Code(s): J18.9 - Pneumonia, unspecified organism Status: Acute Assessment and Plan: Presented with complaints of dizziness CT showed PNA of the right middle and lower lobe Most likely aspiration Chest xray atelectasis vs PNA Augmentin changed to IV ceftriaxone and flagyl Sputum culture grew yeast Pulmonary consulted Feeling much better,, will continue current treatment (3) Congestive heart failure (CHF): Qualifiers: Heart failure type: diastolic Heart failure chronicity: chronic Qualified Code(s): I50.32 - Chronic diastolic (congestive) heart failure Code(s): I50.9 - Heart failure, unspecified Status: Acute Assessment and Plan: Stable on current meds (4) COPD (chronic 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 He is on 1 L of oxygen and does not typically wear this at home although he says that he has an oxygen tank but never uses it. Ariel p.r.n. (5) Hypertension: Qualifiers: Hypertension type: primary hypertension Qualified Code(s): I10 - Essential (primary) hypertension Code(s): I10 - Essential (primary) hypertension Status: Acute Assessment and Plan: Much better controlled. Will continue current treatment. Subjective Date/time seen: 05/27/23 10:02 Interval history: Patient was seen during the morning rounds today. Patient is feeling slightly better. Decreased shortness of breath. No chest pain. No abdominal pain, nausea, no vomiting. Diziness is slightly better. Review of Systems Review of Systems: All systems reviewed & are unremarkable except as noted in HPI and below ROS unobtainable: Yes unobtainable due to mental status Exam Narrative: General: well-nourished, ill-appearing 83-year-old male, sitting up in bed, comfortable, NARD Neuro: awake, alert and oriented x4, speech clear, no focal neuro deficits noted HEENMT: normocephalic, atraumatic, EOMI, sclerae anicteric, moist oral mucosa Respiratory: Air entry is better, few rales at the bases. Cardio: regular rate, regular rhythm with S1-S2 Abdomen: nondistended, normoactive bowel sounds, soft, nontender to palpation Extremities: no edema, erythema, or tenderness to palpation, DP pulses 2+ bilaterally Skin: no rashes or lesions, warm and dry, flush and red cheeks Psych: appropriate mood and affect, judgment and insight intact Const: General: comfortable, no acute distress, well developed, ill appearing, patient obtunded and average body habitus Nutritional Appearance: average body habitus Orientation/consciousness: oriented to person, oriented to place and patient obtunded HENMT: Head: normal to inspection, normocephalic and atraumatic Ears: hearing grossly normal bilaterally Face/Nose/Sinus: normal facial exam Face and sinus: normal facial exam Eyes: General: appearance normal, both eyes and all related structures Pupils: Equal, round and reactive pupils present EOM: EOMs intact bilaterally Neck: Neck: full ROM, no lymphadenopa
[2023-05-27] MEDS: ENOXAPARIN 40 MG/0.4 ML SYRINGE SUB-Q (11:45)
[2023-05-27] MEDS: ROSUVASTATIN 20 MG TABLET PO (17:32)
[2023-05-27] MEDS: DOCUSATE SODIUM 100 MG CAPSULE PO (18:50)
[2023-05-28] VITALS (13 sets, daily range): BP systolic 64–165; BP diastolic 45–87; PULSE 80–92; RESP 16–20; TEMP 36.4–36.7; O2SAT 96–98
[2023-05-28] MEDS: IPRATROPIUM BR 0.02% INH SOLN 0.5 MG/2.5 ML VIAL INHALATION ×4 (02:45→19:26)
[2023-05-28] MEDS: ALBUTEROL SULFATE NEB 2.5 MG/3 ML INH INHALATION ×4 (02:45→19:26)
[2023-05-28] MEDS: metroNIDAZOLE 500 MG/ISO 100ML 500 MG/100 ML BAG 100 MG IVPB ×4 (05:10→23:39)
[2023-05-28 07:03] LABS: Basophils Absolute Auto 0.1 K/mm3 (0.0-0.1); Basophils Percent Auto 0.6 % (0.2-1.2); Eosinophils Absolute Auto 0.2 K/mm3 (0-0.3); Eosinophils Percent Auto 1.7 % (0-4.4); Hematocrit 42.7 % (42.0-52.0); Immature Granulocyte Absolute 0.13 K/mm3 (0.00-0.031); Lymphocytes Absolute Auto 0.96 K/mm3 (0.9-3.2); Lymphocytes Percent Auto 7.2 % (18.3-44.2); Mean Corpuscular HGB Conc 32.8 g/dl (32-36); Mean Corpuscular Hemoglobin 30.6 pg (26-34); Mean Corpuscular Volume 93.2 fl (80-100); Mean Platelet Volume 9.3 fl (7.4-10.4); Monocytes Absolute Auto 0.8 K/mm3 (0.1-0.6); Monocytes Percent Auto 5.9 % (2.6-8.5); Neutrophils Absolute Auto 11.2 K/mm3 (1.3-6.7); Neutrophils Percent Auto 83.6 % (45.5-73.1); Platelet Count Result 189 k/mm3 (150-375); Red Blood Count 4.58 M/mm3 (4.6-6.20); Red Cell Distribution Width 14.2 % (11.5-14.5); White Blood Count 13.4 K/mm3 (4.5-10.0)
[2023-05-28 07:17] LABS: Alanine Aminotransferase 19 U/L (6-50); Albumin Level 3.5 g/dL (3.5-5.1); Alkaline Phosphatase 55 U/L (38-126); Anion Gap 9 mmol/L (8-16); Aspartate Amino Transferase 30 U/L (17-59); Bilirubin,Total 1.1 mg/dL (0.2-1.3); Blood Urea Nitrogen 16 mg/dL (9-20); Calcium 8.2 mg/dL (8.4-10.2); Carbon Dioxide 30 mmol/L (22-30); Chloride 92 mmol/L (98-107); Estimated CRCL calculation 56 ml/min; Estimated Glomerular Filt Rate > 60; Glucose 89 mg/dL (65-110); Potassium 3.5 mmol/L (3.4-5.0); Sodium 131 mmol/L (137-145)
[2023-05-28] MEDS: ENOXAPARIN 40 MG/0.4 ML SYRINGE SUB-Q (08:02)
[2023-05-28] MEDS: LORATADINE/PSEUDOEPHEDRINE (*CRX) 10/240 MG TABLET ER 24 HR 1 TAB PO (08:02)
[2023-05-28] MEDS: CARBAMIDE PEROXIDE 6.5% OT SOLN 15 ML BTL 10 DROP EACH EAR ×2 (08:02→17:23)
[2023-05-28] MEDS: MECLIZINE HCL 12.5 MG TABLET PO ×3 (08:02→17:18)
[2023-05-28] MEDS: DICLOFENAC SODIUM 1% 100 GM GEL (*BKC) 1 APPLIC TOPICAL ×4 (08:03→23:39)
[2023-05-28] MEDS: DOCUSATE SODIUM 100 MG CAPSULE PO (08:04)
--- NOTE | 2023-05-28 10:07 | P.PNIM_ITS ---
Progress Note: A&P Assessment and Plan (1) Dizziness: Code(s): R42 - Dizziness and giddiness Status: Acute Assessment and Plan: Patient presented due to dizziness that started yesterday. * CT of the head with no acute intracranial process. * CTA with no acute findings Work up in progress, feeling better slightly. Will continue current treatment. (2) Pneumonia: Qualifiers: Aspiration pneumonia type: unspecified Laterality: bilateral Lung location: unspecified part of lung Pneumonia type: aspiration pneumonia Qualified Code(s): J69.0 - Pneumonitis due to inhalation of food and vomit Code(s): J18.9 - Pneumonia, unspecified organism Status: Acute Assessment and Plan: * Presented with complaints of dizziness * CT showed PNA of the right middle and lower lobe * Most likely aspiration * Chest xray atelectasis vs PNA * Augmentin changed to IV ceftriaxone and flagyl * Sputum culture grew yeast * Pulmonary consulted Feeling much better,, will continue current treatment (3) Congestive heart failure (CHF): Qualifiers: Heart failure type: diastolic Heart failure chronicity: chronic Qualified Code(s): I50.32 - Chronic diastolic (congestive) heart failure Code(s): I50.9 - Heart failure, unspecified Status: Acute Assessment and Plan: * Stable on current meds (4) COPD (chronic 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 He is on 1 L of oxygen and does not typically wear this at home although he says that he has an oxygen tank but never uses it. * Ariel p.r.n. (5) Hypertension: Qualifiers: Hypertension type: primary hypertension Qualified Code(s): I10 - Essential (primary) hypertension Code(s): I10 - Essential (primary) hypertension Status: Acute Assessment and Plan: Much better controlled. Will continue current treatment. Subjective Date/time seen: 05/28/23 10:07 Interval history: Patient was seen during the morning rounds today. Patient is feeling slightly better. No new overnight complaints. Decreased shortness of breath. No chest pain. No abdominal pain, nausea, no vomiting. Diziness is slightly better. Review of Systems Review of Systems: All systems reviewed & are unremarkable except as noted in HPI and below ROS unobtainable: Yes unobtainable due to mental status Exam Narrative: General: well-nourished, ill-appearing 83-year-old male, sitting up in bed, comfortable, NARD Neuro: awake, alert and oriented x4, speech clear, no focal neuro deficits noted HEENMT: normocephalic, atraumatic, EOMI, sclerae anicteric, moist oral mucosa Respiratory: Air entry is better, few rales at the bases. Cardio: regular rate, regular rhythm with S1-S2 Abdomen: nondistended, normoactive bowel sounds, soft, nontender to palpation Extremities: no edema, erythema, or tenderness to palpation, DP pulses 2+ bilaterally Skin: no rashes or lesions, warm and dry, flush and red cheeks Psych: appropriate mood and affect, judgment and insight intact Const: General: comfortable, no acute distress, well developed, ill appearing, patient obtunded and average body
[2023-05-28] MEDS: BENZOCAINE/MENTHOL (*BKC) 18 EA LOZENGE 1 LOZENGE PO (11:54)
[2023-05-28] MEDS: SODIUM CHLORIDE 0.9% IV 250 ML 999 ML IV CONT (15:56)
[2023-05-28] MEDS: SODIUM CHLORIDE 0.9% IV 1,000 ML 50 ML IV CONT (15:59)
[2023-05-28] MEDS: ROSUVASTATIN 20 MG TABLET PO (17:18)
[2023-05-28] MEDS: BISACODYL 10 MG SUPPOSITORY RECTAL (18:28)
[2023-05-29] VITALS (16 sets, daily range): BP systolic 118–174; BP diastolic 72–95; PULSE 78–91; RESP 16–20; TEMP 36.4–36.7; O2SAT 94–100
[2023-05-29] MEDS: IPRATROPIUM BR 0.02% INH SOLN 0.5 MG/2.5 ML VIAL INHALATION ×4 (02:31→19:24)
[2023-05-29] MEDS: ALBUTEROL SULFATE NEB 2.5 MG/3 ML INH INHALATION ×4 (02:31→19:24)
[2023-05-29] MEDS: metroNIDAZOLE 500 MG/ISO 100ML 500 MG/100 ML BAG 100 MG IVPB (06:00)
[2023-05-29 06:02] LABS: Basophils Absolute Auto 0.1 K/mm3 (0.0-0.1); Basophils Percent Auto 0.7 % (0.2-1.2); Eosinophils Absolute Auto 0.3 K/mm3 (0-0.3); Eosinophils Percent Auto 2.5 % (0-4.4); Hemoglobin 14.1 g/dL (14.0-18.0); Immature Granulocyte Absolute 0.11 K/mm3 (0.00-0.031); Lymphocytes Absolute Auto 0.91 K/mm3 (0.9-3.2); Lymphocytes Percent Auto 8.4 % (18.3-44.2); Mean Corpuscular HGB Conc 33.6 g/dl (32-36); Mean Corpuscular Hemoglobin 31.1 pg (26-34); Mean Corpuscular Volume 92.5 fl (80-100); Mean Platelet Volume 8.8 fl (7.4-10.4); Monocytes Absolute Auto 0.7 K/mm3 (0.1-0.6); Monocytes Percent Auto 6.3 % (2.6-8.5); Neutrophils Absolute Auto 8.7 K/mm3 (1.3-6.7); Neutrophils Percent Auto 81.1 % (45.5-73.1); Platelet Count Result 182 k/mm3 (150-375); Red Blood Count 4.54 M/mm3 (4.6-6.20); Red Cell Distribution Width 14.1 % (11.5-14.5); White Blood Count 10.8 K/mm3 (4.5-10.0)
[2023-05-29] MEDS: CARBAMIDE PEROXIDE 6.5% OT SOLN 15 ML BTL 10 DROP EACH EAR ×2 (08:19→18:10)
[2023-05-29] MEDS: SCOPOLAMINE 1.5 MG PATCH TRANSDERM (08:20)
[2023-05-29] MEDS: LORATADINE/PSEUDOEPHEDRINE (*CRX) 10/240 MG TABLET ER 24 HR 1 TAB PO (08:20)
[2023-05-29] MEDS: DICLOFENAC SODIUM 1% 100 GM GEL (*BKC) 1 APPLIC TOPICAL ×4 (08:20→21:05)
[2023-05-29] MEDS: MECLIZINE HCL 12.5 MG TABLET PO ×4 (08:20→21:04)
[2023-05-29] MEDS: ENOXAPARIN 40 MG/0.4 ML SYRINGE SUB-Q (08:21)
[2023-05-29] MEDS: BENZOCAINE/MENTHOL (*BKC) 18 EA LOZENGE 1 LOZENGE PO (08:22)
[2023-05-29] MEDS: lisinopriL 5 MG TABLET 15 MG PO (10:59)
--- NOTE | 2023-05-29 11:46 | PM.PNPUL ---
Progress Note: A&P Assessment and Plan (1) Pneumonia: Qualifiers: Laterality: bilateral Lung location: lower lobe of lung Pneumonia type: due to unspecified organism Qualified Code(s): J18.9 - Pneumonia, unspecified organism Code(s): J18.9 - Pneumonia, unspecified organism Status: Acute Assessment and Plan: This 83-year-old man with a remote history of neck surgery and radiation for cancer about 27 years ago has had known history of aspiration based on previous video swallow study, also history of chronic congestion was hospitalized with dizziness. Chest imaging studies showed bilateral lower lobe infiltrates especially on abdominal CT suggestive of aspiration pneumonia. On physical exam he has some rhonchi which is also likely related to aspiration. Patient stated that that aspiration is a no problem and that he takes precautions when swallowing. He remains on room air. Leukocyte count is elevated today while the patient is on Augmentin. In the past he had Staph aureus pneumonia. 05/25/23 Plan: MRSA screening pending. Have discontinued oral antibiotics start the patient ceftriaxone and Flagyl IV. Continue to monitor respiratory status. 05/26/23: Modified barium swallow: Patient exhibited consisted but only trace penetration on the thin liquid perk up her which she avoided with a mildly thick liquid perk up. He consumed the other consistencies with any additional penetration. Impairments noted: Reduced base of the tongue retraction and reduced laryngeal elevation. Results indicate this patient should be placed on mildly thick liquids, level 2. When that was suggested, patient agreed that this would be a good liquid consistency as if he knew that thickened liquids prevent coughing yet he had been in denial of dysphagia prior to the evaluation. Therapist and RN discussed possible switch to soft and bite size diet, level 6, in order to facilitate easier swallowing skills while in a weakened condition. Due to patient's denial of deficits, further speech therapy is not indicated. 05/29: Overall patient has improved since being admitted to the hospital. The patient was eating breakfast when I entered the room. He was having difficulty swallowing large bites of food and he says that when he eats he does cough. I asked him to expectorate and he was able to produce 5 expectorations of initially green phlegm that cleared on the last expectoration. He states that he always has this problem especially in the morning. He does have a weak cough. He has thickened liquid at this time and states that is hard to swallow this. Resting room air saturations were 93%. White blood cell count is 10.8. He had coarse breath sounds bilaterally that improved after expectoration. The patient received ceftriaxone from 05/18-05/22. Azithromycin from 05/18-05/22. Augmentin 05/22-05/25. Ceftriaxone and Flagyl from 05/25 to current. His white blood cell count is 10.8 he is afebrile. Chest x-ray shows continued bibasilar interstitial infiltrates. AFB smears are negative x3. Plan: The patient has difficulty swallowing and he has had difficulty swallowing for years since his head and neck surgery. Today is day 12 of antibiotics, would continue antibiotics for 2 additional days for total of 14 days. If he remains in the hospital will continue with ceftriaxone and Flagyl for 2 additional days. The patient has been instructed on precautions he should take to prevent aspiration, although in my opinion he is at a high risk for recurrent aspiration. Patient is ready to be discharged from a pulmonary perspective on these pulmonary medications: Cefdinir 300 mg p.o. b.i.d. x2 days Flagyl 500 mg p.o. q.6 hours x2 days Patient can follow-up with his PCP and should have a CT scan in 1 month to follow his left lower lobe pulmonary nodule seen on CT scan of the abdomen on 05/18/2023. Discussed with Felipe Cary, will sign off, call with questions (2) Lung nodu
--- NOTE | 2023-05-29 12:34 | PM.IMPN ---
Progress Note: A&P Assessment and Plan (1) Dizziness: Code(s): R42 - Dizziness and giddiness Status: Acute Assessment and Plan: feels better, continue meclizine and scopolamine (2) Pneumonia: Qualifiers: Aspiration pneumonia type: unspecified Laterality: bilateral Lung location: unspecified part of lung Pneumonia type: aspiration pneumonia Qualified Code(s): J69.0 - Pneumonitis due to inhalation of food and vomit Code(s): J18.9 - Pneumonia, unspecified organism Status: Acute Assessment and Plan: pulmonology recommends 2 more days of oral antibiotics and they are signing off (3) Congestive heart failure (CHF): Qualifiers: Heart failure type: diastolic Heart failure chronicity: chronic Qualified Code(s): I50.32 - Chronic diastolic (congestive) heart failure Code(s): I50.9 - Heart failure, unspecified Status: Acute Assessment and Plan: Stable on current meds (4) COPD (chronic 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 DuoNebs p.r.n. (5) Hypertension: Qualifiers: Hypertension type: primary hypertension Qualified Code(s): I10 - Essential (primary) hypertension Code(s): I10 - Essential (primary) hypertension Status: Acute Assessment and Plan: blood pressure reviewed on 05/29, mildly hypertensive. Re-initiated lisinopril. P.r.n. hydralazine is available. Patient had hypotensive episode yesterday. Time Spent With Patient Time with patient: 25 - 35 minutes Subjective Date/time seen: 05/29/23 12:34 Interval history: Patient reports feeling well this morning. He was evaluated while eating breakfast. He notes he is able to ambulate while holding on to something and he reports he has a walker electric wheelchair and a chair lift already at home. Spoke with Dr. Goldman from pulmonology recommended 2 more days of oral antibiotics. Patient feels he might be ready for discharge. Review of Systems Review of Systems: All systems reviewed & are unremarkable except as noted in HPI and below Exam Const: General: comfortable, no acute distress, well developed, ill appearing, patient obtunded and average body habitus Nutritional Appearance: average body habitus Orientation/consciousness: oriented to person, oriented to place and patient obtunded HENMT: Head: normal to inspection, normocephalic and atraumatic Ears: hearing grossly normal bilaterally Face/Nose/Sinus: normal facial exam Face and sinus: normal facial exam Eyes: General: appearance normal, both eyes and all related structures Pupils: Equal, round and reactive pupils present EOM: EOMs intact bilaterally Neck: Neck: full ROM, no lymphadenopathy and no JVD Thyroid: thyroid normal Lymphatic: no lymphadenopathy noted Resp: Effort & Inspection: normal respiratory effort and able to speak in complete sentences Auscultation: clear to auscultation bilaterally Cardio: Jugular venous distension: no JVD Rate: regular rate Rhythm: regular rhythm Heart sounds: S1 normal heart sound present and S2 normal heart sound present : General: Yes deferred Skin: Rashes: no rashes Wounds: no wounds Neuro: General: oriented to person, oriented to place, no focal motor deficits, CN's II-XI intact bilaterally, patient obtunded and Unable to assess gait Cranial nerves: Yes CN's II-XII intact bilaterally and Yes Equal, round and reactive pupils present Cognition (Neuro): abnormal cognition (OBTUNDED) Speech: normal speech Gait exam (Neuro): Unable to assess gait Motor exam (neuro): 5/5 motor strength present throughout Extrem: General: normal to inspectio
--- NOTE | 2023-05-29 12:37 | PCNWS ---
Weekly nutritional screen. Patient is tolerating current Heart healthy diet with adequate intake. Mildly thickened liquids level 2. No weight loss reported. No nutritional needs at this time.
[2023-05-29] MEDS: AMOXICILLIN/CLAVULANATE K 875-125 MG TAB 1 TABLET PO ×2 (13:44→21:04)
[2023-05-29] MEDS: SODIUM CHLORIDE 0.9% IV 1,000 ML 50 ML IV CONT (13:45)
[2023-05-29] MEDS: TAMSULOSIN HCL 0.4 MG CAPSULE PO (16:18)
--- NOTE | 2023-05-29 17:40 | PC.NURSE ---
Faxed release of medical records signed by patient in attempt to obtain information on carotid angiography.
[2023-05-29] MEDS: ROSUVASTATIN 20 MG TABLET PO (18:10)
[2023-05-29] MEDS: ACETAMINOPHEN 325 MG TABLET 650 MG PO (21:05)
[2023-05-30] VITALS (13 sets, daily range): BP systolic 129–173; BP diastolic 79–97; PULSE 75–88; RESP 16–22; TEMP 36.8–36.9; O2SAT 93–96
[2023-05-30] MEDS: ALBUTEROL SULFATE NEB 2.5 MG/3 ML INH INHALATION ×4 (01:15→19:59)
[2023-05-30] MEDS: IPRATROPIUM BR 0.02% INH SOLN 0.5 MG/2.5 ML VIAL INHALATION ×4 (01:15→20:00)
[2023-05-30 05:42] LABS: Basophils Absolute Auto 0.1 K/mm3 (0.0-0.1); Basophils Percent Auto 1.3 % (0.2-1.2); Eosinophils Absolute Auto 0.3 K/mm3 (0-0.3); Eosinophils Percent Auto 4.6 % (0-4.4); Hematocrit 39.1 % (42.0-52.0); Hemoglobin 12.9 g/dL (14.0-18.0); Immature Granulocyte Absolute 0.08 K/mm3 (0.00-0.031); Immature Granulocyte Percent A 1.3 % (0-0.5); Lymphocytes Absolute Auto 0.98 K/mm3 (0.9-3.2); Lymphocytes Percent Auto 16.1 % (18.3-44.2); Mean Platelet Volume 9.4 fl (7.4-10.4); Monocytes Absolute Auto 0.5 K/mm3 (0.1-0.6); Monocytes Percent Auto 7.7 % (2.6-8.5); Neutrophils Absolute Auto 4.2 K/mm3 (1.3-6.7); Platelet Count Result 181 k/mm3 (150-375); Red Blood Count 4.16 M/mm3 (4.6-6.20); Red Cell Distribution Width 14.2 % (11.5-14.5); White Blood Count 6.1 K/mm3 (4.5-10.0)
[2023-05-30 06:03] LABS: Alanine Aminotransferase 17 U/L (6-50); Albumin Level 3.3 g/dL (3.5-5.1); Alkaline Phosphatase 49 U/L (38-126); Anion Gap 1 mmol/L (8-16); Aspartate Amino Transferase 31 U/L (17-59); Bilirubin,Total 0.7 mg/dL (0.2-1.3); Blood Urea Nitrogen 12 mg/dL (9-20); Calcium 7.9 mg/dL (8.4-10.2); Carbon Dioxide 31 mmol/L (22-30); Chloride 99 mmol/L (98-107); Estimated CRCL calculation 63 ml/min; Estimated Glomerular Filt Rate > 60; Glucose 95 mg/dL (65-110); Potassium 3.4 mmol/L (3.4-5.0); Sodium 131 mmol/L (137-145)
[2023-05-30] MEDS: LORATADINE/PSEUDOEPHEDRINE (*CRX) 10/240 MG TABLET ER 24 HR 1 TAB PO (08:02)
[2023-05-30] MEDS: TAMSULOSIN HCL 0.4 MG CAPSULE PO (08:02)
[2023-05-30] MEDS: lisinopriL 5 MG TABLET 15 MG PO (08:02)
[2023-05-30] MEDS: AMOXICILLIN/CLAVULANATE K 875-125 MG TAB 1 TABLET PO ×2 (08:02→20:47)
[2023-05-30] MEDS: DICLOFENAC SODIUM 1% 100 GM GEL (*BKC) 1 APPLIC TOPICAL ×3 (08:02→20:47)
[2023-05-30] MEDS: MECLIZINE HCL 12.5 MG TABLET PO ×3 (08:02→20:47)
[2023-05-30] MEDS: ENOXAPARIN 40 MG/0.4 ML SYRINGE SUB-Q (08:03)
[2023-05-30] MEDS: CARBAMIDE PEROXIDE 6.5% OT SOLN 15 ML BTL 10 DROP EACH EAR (08:03)
--- NOTE | 2023-05-30 14:10 | PM.DS ---
DS: Admitting Diagnosis Discharge Date 05/30/2023 Admitting Diagnosis pneumonia, congestive heart failure, COPD, hypertension DS: Discharge Diagnosis Discharge Diagnosis (1) Dizziness: Code(s): R42 - Dizziness and giddiness Status: Acute (2) Pneumonia: Qualifiers: Aspiration pneumonia type: unspecified Laterality: bilateral Lung location: unspecified part of lung Pneumonia type: aspiration pneumonia Qualified Code(s): J69.0 - Pneumonitis due to inhalation of food and vomit Code(s): J18.9 - Pneumonia, unspecified organism Status: Acute (3) Congestive heart failure (CHF): Qualifiers: Heart failure type: diastolic Heart failure chronicity: chronic Qualified Code(s): I50.32 - Chronic diastolic (congestive) heart failure Code(s): I50.9 - Heart failure, unspecified Status: Acute (4) COPD (chronic obstructive pulmonary disease): Qualifiers: COPD type: emphysema Emphysema type: unspecified Qualified Code(s): J43.9 - Emphysema, unspecified Code(s): J44.9 - Chronic obstructive pulmonary disease, unspecified Status: Acute (5) Hypertension: Qualifiers: Hypertension type: primary hypertension Qualified Code(s): I10 - Essential (primary) hypertension Code(s): I10 - Essential (primary) hypertension Status: Acute Plan discharge to SNF at [facility] DS: Summary Hospital Course Reason for hospitalization: patient was admitted for pneumonia with difficulty breathing Hospital Course: this is an 83-year-old male patient whose [facility] who was admitted to the hospital for pneumonia with a large lung nodules suspected to be infectious. Patient has a history of throat cancer and has had difficulty swallowing for a long time. Patient admitted with aspiration pneumonia. Pulmonology was consulted to assist in management. Patient received total of 12 days antibiotic treatment while in the hospital with plans to finish 14 day course upon discharge. During hospitalization patient complained of significant dizziness. At baseline he is generally wheelchair confined and has a lift to take him up the stairs at his home. Patient lives independently in his own home a and he is not back to baseline to be able to care for himself completely. For this reason family requesting SNF at discharge. Arrangements made for patient to go to [facility]. For the past 2 days his vital signs have remained stable, he is at his baseline mental status which includes dementia and confusion at times. Patient discharged on home medications as well as remaining doses of antibiotic treatment. Status at Discharge Cognitive/behavioral status at discharge: awake, alert, confused per dementia diagnosis Functional status at discharge: wheelchair bound Overall status at discharge: patient is progressing back to baseline Time Spent with Patient Time attestation: Total time spent providing and/or coordinating discharge services: 40 Time spent: Greater than 30 minutes Exam Const: General: comfortable, no acute distress, well developed, ill appearing, patient obtunded and average body habitus Nutritional Appearance: average body habitus Orientation/consciousness: oriented to person, oriented to place and patient obtunded HENMT: Head: normal to inspection, normocephalic and atraumatic Ears: hearing grossly normal bilaterally Face/Nose/Sinus: normal facial exam Face and sinus: normal facial exam Eyes: General: appearance normal, both eyes and all related structures Pupils: Equal, round and reactive pupils present EOM: EOMs intact bilaterally Neck: Neck: full ROM, no lymphadenopathy and no JVD Thyroid: thyroid normal Lymphatic: no lymphadenopathy noted Resp: Effort & Inspection: normal respiratory effort and able to speak in complete sentences Auscultation: clear to auscultation bilaterally Cardio: Jugul
[2023-05-30] MEDS: ROSUVASTATIN 20 MG TABLET PO (17:31)
[2023-05-31] VITALS (8 sets, daily range): BP systolic 127–186; BP diastolic 76–102; PULSE 84–91; RESP 16–22; TEMP 36.3; O2SAT 90–92
[2023-05-31] MEDS: ALBUTEROL SULFATE NEB 2.5 MG/3 ML INH INHALATION ×3 (02:12→12:50)
[2023-05-31] MEDS: IPRATROPIUM BR 0.02% INH SOLN 0.5 MG/2.5 ML VIAL INHALATION ×3 (02:13→12:51)
[2023-05-31 05:36] LABS: Basophils Absolute Auto 0.1 K/mm3 (0.0-0.1); Basophils Percent Auto 1.5 % (0.2-1.2); Eosinophils Absolute Auto 0.5 K/mm3 (0-0.3); Eosinophils Percent Auto 6.8 % (0-4.4); Hematocrit 46.2 % (42.0-52.0); Hemoglobin 15.3 g/dL (14.0-18.0); Immature Granulocyte Percent A 1.5 % (0-0.5); Lymphocytes Absolute Auto 0.85 K/mm3 (0.9-3.2); Lymphocytes Percent Auto 12.9 % (18.3-44.2); Mean Corpuscular HGB Conc 33.1 g/dl (32-36); Mean Corpuscular Hemoglobin 31.2 pg (26-34); Mean Corpuscular Volume 94.1 fl (80-100); Mean Platelet Volume 8.8 fl (7.4-10.4); Monocytes Absolute Auto 0.5 K/mm3 (0.1-0.6); Monocytes Percent Auto 7.4 % (2.6-8.5); Neutrophils Absolute Auto 4.6 K/mm3 (1.3-6.7); Neutrophils Percent Auto 69.9 % (45.5-73.1); Platelet Count Result 189 k/mm3 (150-375); Red Blood Count 4.91 M/mm3 (4.6-6.20); Red Cell Distribution Width 14.1 % (11.5-14.5); White Blood Count 6.6 K/mm3 (4.5-10.0)
[2023-05-31] MEDS: hydrALAZINE HCL 20 MG/ML VIAL 10 MG IV PUSH (05:44)
[2023-05-31 05:47] LABS: Alanine Aminotransferase 21 U/L (6-50); Alkaline Phosphatase 53 U/L (38-126); Anion Gap 5 mmol/L (8-16); Aspartate Amino Transferase 48 U/L (17-59); Bilirubin,Total 0.8 mg/dL (0.2-1.3); Blood Urea Nitrogen 7 mg/dL (9-20); Calcium 8.6 mg/dL (8.4-10.2); Carbon Dioxide 33 mmol/L (22-30); Chloride 95 mmol/L (98-107); Estimated CRCL calculation 56 ml/min; Estimated Glomerular Filt Rate > 60; Glucose 103 mg/dL (65-110); Sodium 133 mmol/L (137-145)
--- NOTE | 2023-05-31 08:28 | PM.DS ---
DS: Admitting Diagnosis Discharge Date 05/31/2023 Admitting Diagnosis ?pneumonia, congestive heart failure, COPD, hypertension DS: Discharge Diagnosis Discharge Diagnosis (1) Dizziness: Code(s): R42 - Dizziness and giddiness Status: Acute (2) Pneumonia: Qualifiers: Aspiration pneumonia type: unspecified Laterality: bilateral Lung location: unspecified part of lung Pneumonia type: aspiration pneumonia Qualified Code(s): J69.0 - Pneumonitis due to inhalation of food and vomit Code(s): J18.9 - Pneumonia, unspecified organism Status: Acute (3) Congestive heart failure (CHF): Qualifiers: Heart failure type: diastolic Heart failure chronicity: chronic Qualified Code(s): I50.32 - Chronic diastolic (congestive) heart failure Code(s): I50.9 - Heart failure, unspecified Status: Acute (4) COPD (chronic obstructive pulmonary disease): Qualifiers: COPD type: emphysema Emphysema type: unspecified Qualified Code(s): J43.9 - Emphysema, unspecified Code(s): J44.9 - Chronic obstructive pulmonary disease, unspecified Status: Acute (5) Hypertension: Qualifiers: Hypertension type: primary hypertension Qualified Code(s): I10 - Essential (primary) hypertension Code(s): I10 - Essential (primary) hypertension Status: Acute Plan discharge to SNF at [facility] DS: Summary Hospital Course Reason for hospitalization: patient was admitted for pneumonia with difficulty breathing Hospital Course: This is an 83-year-old male patient whose [facility] who was admitted to the hospital for pneumonia with a large lung nodules suspected to be infectious.? Patient has a history of throat cancer and has had difficulty swallowing for a long time.? Patient admitted with aspiration pneumonia.? Pulmonology was consulted to assist in management.? Patient received total of 12 days antibiotic treatment while in the hospital with plans to finish 14 day course upon discharge.? During hospitalization patient complained of significant dizziness.? At baseline he is generally wheelchair confined and has a lift to take him up the stairs at his home.? Patient lives independently in his own home a and he is not back to baseline to be able to care for himself completely.? For this reason family requesting SNF at discharge.? Arrangements made for patient to go to [facility].? For the past 3 days his vital signs have remained stable, he is at his baseline mental status which includes dementia and confusion at times.? Patient discharged on home medications as well as remaining doses of antibiotic treatment. Status at Discharge Cognitive/behavioral status at discharge: awake, alert, confused per dementia diagnosis Functional status at discharge: wheelchair bound Overall status at discharge: patient is progressing back to baseline Time Spent with Patient Time attestation: Total time spent providing and/or coordinating discharge services:35 Time spent: Greater than 30 minutes Exam Narrative: General: well-nourished, ill-appearing 83-year-old male, sitting up in bed, comfortable, NARD Neuro: awake, alert and oriented x4, speech clear, no focal neuro deficits noted HEENMT: normocephalic, atraumatic, EOMI, sclerae anicteric, moist oral mucosa Respiratory: Air entry is better, few rales at the bases. Cardio: regular rate, regular rhythm with S1-S2 Abdomen: nondistended, normoactive bowel sounds, soft, nontender to palpation Extremities: no edema, erythema, or tenderness to palpation, DP pulses 2+ bilaterally Skin: no rashes or lesions, warm and dry, flush and red cheeks Psych: appropriate mood and affect, judgment and insight intact DS: Data Data Completed and Pending Completed studies during hospitalization: Brain MRI, abdomen pelvis CT, head CT, chest x-ray, carotid Doppler study, head neck CTA, modified barium s
[2023-05-31] MEDS: MECLIZINE HCL 12.5 MG TABLET PO (09:53)
[2023-05-31] MEDS: AMOXICILLIN/CLAVULANATE K 875-125 MG TAB 1 TABLET PO (09:53)
[2023-05-31] MEDS: DICLOFENAC SODIUM 1% 100 GM GEL (*BKC) 1 APPLIC TOPICAL (09:53)
[2023-05-31] MEDS: ENOXAPARIN 40 MG/0.4 ML SYRINGE SUB-Q (09:53)
[2023-05-31] MEDS: lisinopriL 5 MG TABLET 15 MG PO (09:53)
[2023-05-31] MEDS: TAMSULOSIN HCL 0.4 MG CAPSULE PO (09:53)
[2023-05-31 11:42] LABS: SARS-CoV-2 RNA PCR Negative (Negative)
== END 2023-05-31 13:25 | DRG 178 ==
LOC: ANHED 19:18 → ANH3MED 19:44
PROVIDERS: Emergency Medicine; Internal Medicine; Internal Medicine Critical Care Medicine; Nurse Practitioner; Student in an Organized Health Care Education/Training Program; Admitting Provider Hospitalist; Emergency Provider Emergency Medicine; Visit Provider Nurse Practitioner
DX: J69.0 Pneumonitis due to inhalation of food and vomit (principal); I50.32 Chronic diastolic (congestive) heart failure; I65.23 Occlusion and stenosis of bilateral carotid arteries; I11.0 Hypertensive heart disease with heart failure; J44.9 Chronic obstructive pulmonary disease, unspecified; K40.90 Unilateral inguinal hernia, without obstruction or gangrene, not specified as recurrent; R33.9 Retention of urine, unspecified; R09.02 Hypoxemia; Z20.822 Contact with and (suspected) exposure to COVID-19; Z85.89 Personal history of malignant neoplasm of other organs and systems
CPT/HCPCS: 36415; 70450; 70496; 70498; 70551; 71045; 74177; 80048; 80053; 81001; 82550; 83605; 83735; 84484; 85025; 85027; 85055; 87015; 87040; 87070; 87081; 87086; 87116; 87118; 87205; 87206; 87635; 87637; 92610; 93005; 93880; 94640; 94667; 94668; 96361; 96365; 96366; 96367; 96375; 96376; 97110; 97116; 97161; 97165; 97530; 97535; 99285; A9270; G0378; J0360; J0456; J0696; J1630; J1650; J1836; J1940; J2270; J7030; J7040; J7050; J7120; Q9967

== ENCOUNTER 2023-06-10 14:22 | Emergency (ER) | payer MEDICARE, OTHER, SELFPAY ==
--- NOTE | ~2023-06-10 | XR_ITS ---
EXAMINATION: XR chest 2V Exam Date/Time: 06/10/2023 14:40 CDT HISTORY: SOB, RECENT PNEUMONIA Comparison: 05/29/2023. RESULT: Lines, tubes, and devices: Cholecystectomy clips. Lungs and pleura: Unchanged streaky bibasilar airspace opacities. Bilateral costophrenic angle blunt ing. Cardiomediastinal silhouette: Stable. Other: No acute osseous or upper abdominal finding. IMPRESSION: Unchanged bibasilar airspace disease. Possible small bilateral effusions. Reviewed, dictated and finalized at location K.
--- NOTE | ~2023-06-10 | CT_ITS ---
EXAMINATION: CT diagnostic chest wo con DATE: 06/10/2023 16:29 INDICATION: possble aspiration TECHNIQUE: Computed tomography (CT) of the chest was performed with 100 mL Omnipaque-350 intravenous contrast. Automated exposure control and iterative reconstruction technique were employed. The dose-l ength product was 163.66 mGy-cm. COMPARISON: X-ray chest, same date. FINDINGS: CHEST: Thoracic aorta: Moderate arch calcification. Lung parenchyma and airways: Scattered tree-in-bud opacities most evident in the right lung. Bibasila r thickening, bronchiectasis, and minimal airway secretions. Streaky bibasilar scar/atelectasis. Thoracic inlet, axillae and chest wall: No thyroid or soft tissue mass. No axillary lymphadenopathy. Mediastinum: Enlarged mediastinal lymph nodes. Heart and pericardium: Mitral and aortic valve calcification. Normal heart size. No pericardial effus ion. Coronary artery calcifications: Heavy. Pleura: Trace right pleural fluid. Upper abdomen: No significant finding. Thoracic bones: No acute osseous finding in the chest. IMPRESSION: Pulmonary tree-in-bud opacities as can be seen with atypical infection (MAC, TB, fungal), ABPA, airwa ys disease (CF, bronchiectasis), and aspiration. Mediastinal lymphadenopathy. Trace right pleural fluid. Reviewed, dictated and finalized at location K. IMPRESSION: Pulmonary tree-in-bud opacities as can be seen with atypical infection (MAC, TB , fungal), ABPA, airways disease (CF, bronchiectasis), and aspiration. Mediastinal lymphadenopathy. Trace right pleural fluid.
[2023-06-10 14:22] VITALS: BP 201/93; PULSE 75; RESP 16; TEMP 36.6; O2SAT 100
--- NOTE | 2023-06-10 14:32 | ECG_ITS ---
Measurements Intervals Roach Rate: 70 P: 58 LA: 232 QRS: 9 QRSD: 97 T: 33 QT: 409 QTc: 443 Interpretive Statements SINUS RHYTHM WITH FIRST DEGREE AV BLOCK ABNORMAL ECG COMPARED TO ECG 05/18/2023 11:37:37 SINUS RHYTHM NOW PRESENT Electronically Signed On 06-11-2023 8:48:33 CDT by Massimo Velazquez M.D.
[2023-06-10 14:48] LABS: Basophils Absolute Auto 0.1 K/mm3 (0.0-0.1); Basophils Percent Auto 1.4 % (0.2-1.2); Eosinophils Absolute Auto 0.4 K/mm3 (0-0.3); Hematocrit 43.5 % (42.0-52.0); Hemoglobin 14.3 g/dL (14.0-18.0); Immature Granulocyte Absolute 0.08 K/mm3 (0.00-0.031); Immature Granulocyte Percent A 1.1 % (0-0.5); Lymphocytes Percent Auto 25.6 % (18.3-44.2); Mean Corpuscular HGB Conc 32.9 g/dl (32-36); Mean Corpuscular Hemoglobin 30.8 pg (26-34); Mean Corpuscular Volume 93.8 fl (80-100); Mean Platelet Volume 9.3 fl (7.4-10.4); Monocytes Absolute Auto 0.7 K/mm3 (0.1-0.6); Monocytes Percent Auto 9.8 % (2.6-8.5); Neutrophils Percent Auto 57.1 % (45.5-73.1); Platelet Count Result 229 k/mm3 (150-375); Red Blood Count 4.64 M/mm3 (4.6-6.20); Red Cell Distribution Width 14.5 % (11.5-14.5)
[2023-06-10 14:57] LABS: Lactic Acid Reflex 1.1 mmol/L (0.7-2.0)
[2023-06-10 15:47] LABS: Alanine Aminotransferase 31 U/L (6-50); Albumin Level 4.1 g/dL (3.5-5.1); Alkaline Phosphatase 47 U/L (38-126); Anion Gap 4 mmol/L (8-16); Aspartate Amino Transferase 61 U/L (17-59); Bilirubin,Total 1.1 mg/dL (0.2-1.3); Blood Urea Nitrogen 13 mg/dL (9-20); Calcium 8.7 mg/dL (8.4-10.2); Carbon Dioxide 35 mmol/L (22-30); Chloride 94 mmol/L (98-107); Estimated CRCL calculation 42 ml/min; Estimated Glomerular Filt Rate > 60; Glucose 111 mg/dL (65-110); Potassium 3.6 mmol/L (3.4-5.0); Sodium 133 mmol/L (137-145)
--- NOTE | 2023-06-10 16:09 | ED.SOB ---
HPI - SOB/Dyspnea General Chief Complaint: Shortness of Breath/Dyspnea Stated Complaint: worsening pneumonia Time Seen by Provider: 06/10/23 15:27 History of Present Illness HPI Narrative: Patient is an 83-year-old male with a history of COPD, CHF, dementia presenting with concerns for pneumonia. Patient's daughter is at bedside and assists with the history. States that the patient was recently hospitalized here for pneumonia and was discharged to a SNF due to deconditioning. States that over the last several days he has been coughing more. Has been coughing up a lot of phlegm. 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 Patient currently denies complaints. Denies pain or shortness of breath. Related Data Home Medications Medication Instructions Recorded Confirmed albuterol sulfate 2.5 mg/3 mL 2.5 mg inhalation DIRECTED PRN 05/18/23 06/01/23 (0.083 %) solution for nebulization bronchospasms diclofenac sodium 1 % topical gel 4 g topical QID 05/18/23 06/01/23 guaifenesin 100 mg/5 mL oral liquid 100 mg PO DIRECTED PRN thick 05/18/23 06/01/23 mucus lisinopril 10 mg tablet 10 mg PO DAILY 05/18/23 06/01/23 meloxicam 7.5 mg tablet 7.5 mg PO DAILY PRN Pain 05/18/23 06/01/23 rosuvastatin 20 mg tablet 20 mg PO QPM 05/18/23 06/01/23 Allergies Allergy/AdvReac Type Severity Reaction Status Date / Time No Known Allergies Allergy Mild Verified 01/24/21 22:03 Review of Systems Review of Systems: All systems reviewed & are unremarkable except as noted in HPI and below PMFSH Past Medical History Medical History Congestive heart failure (CHF) COPD (chronic obstructive pulmonary disease) Hypertension Surgical History Surgical History Surgical history unknown Family History Family History Other Unknown family medical history Social History Social History Smoking status: Never smoker Additional smoking assessment comments: quit 50 years ago Alcohol intake: current Drinks per week: 7 Substance use: never Lack of Transportation: No Lack of Food: Never True Current Housing: I Have Housing Concerned About Future Housing: No Difficulty Paying Gas/Electric Bills: No Difficulty Paying for Meds: No Currently Unemployed: No Education: High School Diploma/GED Difficulty w/ Childcare or Family Care: No Gender identity (if verbalized by the patient): Male Spiritual care concerns: No Exam Narrative: GENERAL: Nontoxic, no acute distress, pleasant and cooperative HEAD: Normocephalic, atraumatic. EYES: PERRLA and EOMI. ENT: Mucous membranes moist. NECK: Supple. CHEST: Crackles in bilateral bases, no respiratory distress, saturating greater than 97% on room air HEART: Regular rate and rhythm ABDOMEN: Soft, nontender, nondistended EXTREMITIES: Normal range of motion. No edema. SKIN: Warm, dry, no rash. NEURO: At baseline, A&O x2 PSYCH: Normal mood and affect. Course Vital Signs Vital signs: Vital Signs Temperature 97.9 F 06/10/23 14:22 Pulse Rate 75 06/10/23 14:22 Respiratory Rate 16 06/10/23 14:22 Blood Pressure 201/93 H 06/10/23 14:22 Pulse Oximetry 100 06/10/23 14:22 Oxygen Delivery Room Air 06/10/23 14:22 Temperature 97.9 F 06/10/23 14:22 Pulse Rate 67 06/10/23 18:16 Respiratory Rate 24 H 06/10/23 18:16 Blood Pressure 169/93 H 06/10/23 18:16 Pulse Oximetry 100 06/10/23 17:33 Oxygen Delivery Room Air 06/10/23 14:30 MDM - SOB/Dyspnea MDM Narrative Medical decision making narrative: Patient is an 83-year-old male presenting with worsening productive cough. Patient is hypertensive, his vitals are within normal limits. Exa
[2023-06-10 17:30] VITALS: BP 169/93; PULSE 60; RESP 19; O2SAT 97
[2023-06-10 17:33] VITALS: BP 169/93; PULSE 61; RESP 19; O2SAT 100
[2023-06-10 17:35] LABS: Influenza A QL RT-PCR Negative (Negative); Influenza B QL RT-PCR Negative (Negative); SARS-CoV-2 RNA PCR Negative (Negative)
[2023-06-10] MEDS: AMOXICILLIN/CLAVULANATE K 875-125 MG TAB 1 TABLET PO (18:00)
[2023-06-10] MEDS: DOXYCYCLINE HYCLATE 100 MG TABLET PO (18:00)
[2023-06-10 18:16] VITALS: BP 169/93; PULSE 67; RESP 24
== END 2023-06-10 18:34 ==
PROVIDERS: Emergency Provider Emergency Medicine
DX: J18.9 Pneumonia, unspecified organism (principal); Z20.822 Contact with and (suspected) exposure to COVID-19; F03.90 Unspecified dementia, unspecified severity, without behavioral disturbance, psychotic disturbance, mood disturbance, and anxiety; J44.9 Chronic obstructive pulmonary disease, unspecified; I50.9 Heart failure, unspecified; I11.0 Hypertensive heart disease with heart failure; Z87.891 Personal history of nicotine dependence; I44.0 Atrioventricular block, first degree
CPT/HCPCS: 36415; 71046; 71250; 80053; 83605; 85025; 87040; 87636; 93005; 99284; A9270

== ENCOUNTER 2023-06-24 11:29 | Emergency (ER) | payer MEDICARE, OTHER, SELFPAY ==
--- NOTE | ~2023-06-24 | XR_ITS ---
XR chest 1V portable 06/24/2023 12:09 Indication: Productive cough and wheezing. Pneumonia. Procedure: AP portable chest Comparison: 01/28/2021 Findings: There is bibasilar airspace disease which appears chronic. Possible small effusions versus pleural thickening. No pneumothorax. Stable cardiomediastinal silhouette. Impression: 1: Chronic bibasilar airspace disease which may represent atelectasis/scarring or atypical pneumonia. Reviewed, dictated and finalized at location A. Impression: 1: Chronic bibasilar airspace disease which may represent atelectasis/scarring or atypical pneumonia.
[2023-06-24 11:34] VITALS: PULSE 85; RESP 16; TEMP 36.6; O2SAT 99
[2023-06-24 12:00] VITALS: O2SAT 98
[2023-06-24 12:03] LABS: Basophils Absolute Auto 0.1 K/mm3 (0.0-0.1); Basophils Percent Auto 0.8 % (0.2-1.2); Eosinophils Absolute Auto 0.1 K/mm3 (0-0.3); Eosinophils Percent Auto 1.7 % (0-4.4); Hematocrit 42.4 % (42.0-52.0); Hemoglobin 13.6 g/dL (14.0-18.0); Immature Granulocyte Absolute 0.02 K/mm3 (0.00-0.031); Immature Granulocyte Percent A 0.3 % (0-0.5); Lymphocytes Absolute Auto 0.98 K/mm3 (0.9-3.2); Lymphocytes Percent Auto 16.5 % (18.3-44.2); Mean Corpuscular HGB Conc 32.1 g/dl (32-36); Mean Corpuscular Hemoglobin 30.7 pg (26-34); Mean Corpuscular Volume 95.7 fl (80-100); Mean Platelet Volume 9.3 fl (7.4-10.4); Monocytes Absolute Auto 0.5 K/mm3 (0.1-0.6); Monocytes Percent Auto 7.7 % (2.6-8.5); Neutrophils Absolute Auto 4.3 K/mm3 (1.3-6.7); Platelet Count Result 170 k/mm3 (150-375); Red Blood Count 4.43 M/mm3 (4.6-6.20); Red Cell Distribution Width 14.7 % (11.5-14.5)
[2023-06-24 12:13] LABS: Alanine Aminotransferase 68 U/L (6-50); Albumin Level 4.4 g/dL (3.5-5.1); Alkaline Phosphatase 49 U/L (38-126); Anion Gap 10 mmol/L (8-16); Aspartate Amino Transferase 76 U/L (17-59); Bilirubin,Total 1.4 mg/dL (0.2-1.3); Blood Urea Nitrogen 17 mg/dL (9-20); Calcium 9.1 mg/dL (8.4-10.2); Carbon Dioxide 31 mmol/L (22-30); Chloride 95 mmol/L (98-107); Estimated CRCL calculation 50 ml/min; Estimated Glomerular Filt Rate > 60; Glucose 103 mg/dL (65-110); Potassium 3.9 mmol/L (3.4-5.0); Sodium 136 mmol/L (137-145)
--- NOTE | 2023-06-24 13:07 | ED.GENADULT ---
HPI - General Adult General Chief complaint: Recheck/Abnormal Lab/Rx Stated complaint: alter mental status Time Seen by Provider: 06/24/23 11:38 History of Present Illness HPI narrative: Patient is an 83-year-old male who presents ER for concerns of aspiration and confusion. Patient has a history of throat surgery and chronic aspiration. He aspirated some food and with his thickened liquids. He does not have a feeding tube nor is he interested in 1. He has been in a rehabilitation facility for aspiration pneumonia. His insurance ran out today and he is going to be discharged and it was recommended he come back here to be evaluated. Family reports patient is more confused but they are unable to report what he is confused about. Patient is oriented to self and place and situation. He does have very coarse lung sounds that can be heard from across the room and somewhat gurgling. Related Data Home Medications Medication Instructions Recorded Confirmed albuterol sulfate 2.5 mg/3 mL 2.5 mg inhalation DIRECTED PRN 05/18/23 06/01/23 (0.083 %) solution for nebulization bronchospasms diclofenac sodium 1 % topical gel 4 g topical QID 05/18/23 06/01/23 guaifenesin 100 mg/5 mL oral liquid 100 mg PO DIRECTED PRN thick 05/18/23 06/01/23 mucus lisinopril 10 mg tablet 10 mg PO DAILY 05/18/23 06/01/23 meloxicam 7.5 mg tablet 7.5 mg PO DAILY PRN Pain 05/18/23 06/01/23 rosuvastatin 20 mg tablet 20 mg PO QPM 05/18/23 06/01/23 Allergies Allergy/AdvReac Type Severity Reaction Status Date / Time No Known Allergies Allergy Mild Verified 06/24/23 12:03 Review of Systems Review of Systems: All systems reviewed & are unremarkable except as noted in HPI and below Constitutional: Constitutional: Denies chills, Denies fatigue and Denies fever(s) ENT: Denies nasal congestion and Denies sore throat Cardiovascular: Cardiovascular: Denies chest pain, Denies rapid heart rate and Denies radiating jaw, neck or arm pain Respiratory: Respiratory: Reports chest congestion, Reports cough and Reports dyspnea Gastrointestinal: Gastrointestinal: Denies abdominal pain, Denies nausea and Denies vomiting Musculoskeletal: Musculoskeletal: Reports no additional musculoskeletal complaints PMFSH Past Medical History Medical History Congestive heart failure (CHF) COPD (chronic obstructive pulmonary disease) Hypertension Surgical History Surgical History Surgical history unknown Family History Family History Other Unknown family medical history Social History Social History Smoking status: Never smoker Additional smoking assessment comments: quit 50 years ago Alcohol intake: current Drinks per week: 7 Substance use: never Lack of Transportation: No Lack of Food: Never True Current Housing: I Have Housing Concerned About Future Housing: No Difficulty Paying Gas/Electric Bills: No Difficulty Paying for Meds: No Currently Unemployed: No Education: High School Diploma/GED Difficulty w/ Childcare or Family Care: No Gender identity (if verbalized by the patient): Male Spiritual care concerns: No Exam Narrative: GENERAL: Well-appearing, well-nourished, and in no acute distress. HEAD: Normocephalic, atraumatic. ENT:Mucous membranes moist. NECK: Supple. Cavitation to the right neck from previous surgery. CHEST: Coarse Rales bilaterally. No respiratory distress. HEART: Regular rate and rhythm. Normal peripheral pulses. ABDOMEN: Soft, nontender, nondistended, normal active bowel sounds. EXTREMITIES: Normal range of motion. No edema. SKIN: Warm, dry, no rash. NEURO: Alert and oriented x3. PSYCH: Normal mood and affect. Course Course Emergency Course: Patient resting c
[2023-06-24 13:10] VITALS: BP 189/100; PULSE 81; RESP 18; O2SAT 96
[2023-06-24] MEDS: ALBUTEROL SULFATE NEB 2.5 MG/3 ML INH INHALATION (13:17)
[2023-06-24 13:18] VITALS: PULSE 81; RESP 16
[2023-06-24] MEDS: IPRATROPIUM BR 0.02% INH SOLN 0.5 MG/2.5 ML VIAL INHALATION (13:18)
[2023-06-24 13:28] VITALS: PULSE 80; RESP 16
[2023-06-24 14:45] VITALS: BP 191/99; PULSE 85; RESP 18; O2SAT 94
== END 2023-06-24 14:45 | disposition home or self-care (01) ==
PROVIDERS: Emergency Provider Emergency Medicine
DX: J44.9 Chronic obstructive pulmonary disease, unspecified (principal); I50.9 Heart failure, unspecified; I11.0 Hypertensive heart disease with heart failure; Z87.891 Personal history of nicotine dependence; R91.8 Other nonspecific abnormal finding of lung field
CPT/HCPCS: 36415; 71045; 80053; 85025; 94640; 99284